=== PATIENT | female | born 1960 | race Caucasian/White ===

== ENCOUNTER → 2017-04-07 | Outpatient (CLI) | payer BC ==
--- NOTE | 2017-04-07 09:57 | REPMRS ---
Patient History The patient states she had a clinical breast exam in 05/09 Patient is postmenopausal. Family history of breast cancer in sister at age 45 and endometrial cancer in sister at age 73. Benign excisional biopsy of the left breast, 1997. Took hormonal contraceptives for 20 years. Digital Woman Screen Mammo: April 07, 2017 - Exam #: [id number] Bilateral CC and MLO view(s) were taken. Technologist: Jaclyn Kaur, Technologist Prior study comparison: April 03, 2016, left breast digital mammo diagnostic unilateral, performed at [facility]. April 01, 2016, digital woman screen mammo performed at [facility]. FINDINGS: There are scattered fibroglandular densities. There is a fairly symmetric fibroglandular pattern in both breasts. There has been no interval development of masses, areas of architectural distortion or clusters of microcalcifications typical of malignancy. The left breast cyst has increased in size. ASSESSMENT: BI-RADS/ACR category 2 mammogram. Benign finding(s). Recommendation Routine screening mammogram of both breasts in 1 year (for women over age 40). This patient's Lifetime Breast Cancer RIsk is estimated at 20.1%, therefore supplemental breast MRI screening is recommended. This mammogram was interpreted with the aid of an FDA-approved computer-aided dectection system. Electronically Signed By: Spencer Easley MD 04/07/17 0957
== END ==
LOC: M WHC 08:00
PROVIDERS: ATTEND Internal Medicine
DX: Z12.31 Encounter for screening mammogram for malignant neoplasm of breast (principal)

== ENCOUNTER → 2018-04-08 | Outpatient (CLI) | payer BC | LOC: M WHC 08:01 | DX: Z12.31 Encounter for screening mammogram for malignant neoplasm of breast (principal); N60.02 Solitary cyst of left breast; Z92.89 Personal history of other medical treatment; Z92.0 Personal history of contraception; Z80.3 Family history of malignant neoplasm of breast; Z80.49 Family history of malignant neoplasm of other genital organs | CPT/HCPCS: 77067 ==

== ENCOUNTER → 2018-05-28 | Outpatient (CLI) | payer BC ==
--- NOTE | 2018-05-28 12:52 | REP ---
THYROID SONOGRAPHY: HISTORY: The patient feels a lump in the right side of the neck. No comparison imaging. FINDINGS: Thyroid isthmus measures 0.5 cm in thickness. Right thyroid lobe dimensions are 3.6 x 1.5 x 1.0 cm. Left lobe measures 3.2 x 1.4 x 1.0 cm. Scanning in the area where the patient feels a lump shows no mass or abnormal cyst. There is a 6 mm hypoechoic solid nodule in the right lobe superiorly. There is a 3 mm cyst inferiorly in the right lobe. There is am 8 x 5 x 4 mm hypoechoic nodule in the left lobe. IMPRESSION: Multinodular thyroid. No evidence of mass or neck cyst.
== END ==
LOC: M WHC 07:52
PROVIDERS: ATTEND Obstetrics & Gynecology
DX: R22.1 Localized swelling, mass and lump, neck (principal)

== ENCOUNTER → 2019-04-12 | Outpatient (CLI) | payer BC ==
--- NOTE | 2019-04-12 10:02 | REP ---
BILATERAL SCREENING MAMMOGRAM WITH 3D TOMOSYNTHESIS: Family history of breast cancer in sister at age 45. [facility] lifetime risk of breast cancer is 19.2%. MLO and CC views of both breast performed with 3D tomosynthesis. There is moderate scattered fibroglandular tissue bilaterally. There is no change on the right. On the left, a nodule medially measures approximately 2.9 cm in maximum diameter and has increased in size, previously identified as a cyst. There are two adjacent 1 cm nodules which appear oval in shape and fairly well-circumscribed. I see no other evidence of mass or clustered microcalcifications. IMPRESSION: BIRADS 0: BI-RADS/ACR category 0 mammogram, Incomplete: Need additional imaging evaluation and/or prior mammograms for comparison. Well-circumscribed nodule in the medial aspect of the left breast measures 2.9 cm in maximum diameter and has increased in size since prior studies. This was previously identified as a cyst. There are two adjacent 1 cm nodular densities just superior to the dominant nodule. These are not definitely seen on the prior study. Recommend spot compression views and ultrasound to further evaluate. This mammogram was interpreted with the aid of an FDA-approved computer-aided detection system. A. Negative x-ray reports should not delay biopsy if a dominant or clinically suspicious mass is present. B. Four to eight percent of cancers are not identified by x-ray. C. Adenosis and dense breasts may obscure an underlying neoplasm. The patient states that she or he has not had a clinical breast exam in over a year. The patient letter being requested is M0.
== END ==
LOC: M WHC 07:03
PROVIDERS: ATTEND Internal Medicine
DX: Z12.31 Encounter for screening mammogram for malignant neoplasm of breast (principal); Z80.3 Family history of malignant neoplasm of breast; N63.20 Unspecified lump in the left breast, unspecified quadrant

== ENCOUNTER → 2019-04-20 | Outpatient (CLI) | payer BC ==
--- NOTE | 2019-04-20 12:45 | REP ---
DIAGNOSTIC MAMMOGRAM, LEFT BREAST WITH LEFT BREAST ULTRASOUND: Spot compression views, left breast performed in multiple projections and correlated with recent mammogram of 04/12/2019 and compared to other prior exams. There is confirmation of a well-circumscribed nodule in the medial left breast which has enlarged since prior studies. This measures about 2.8 cm in maximum diameter. Again, there appear to be two subcentimeter nodules adjacent to this mammographically. Real-time sonographic evaluation of left breast performed medially in the region of 9-o'clock position. There is a complex cyst corresponding to the dominant nodule in the medial left breast, measuring 3.1 x 1.8 x 2.5 cm. The lesion is predominantly cystic, but there is diffuse wall thickening with a peripheral hypoechoic area. A peripheral oval hypoechoic area may represent a mural nodule 1.8 cm x 0.7 cm. There are two adjacent hypoechoic nodules, which do not represent simple cysts, each measuring 8 mm in maximum diameter. IMPRESSION: BIRADS 4: BI-RADS/ACR category 4 mammogram. Suspicious Abnormality - biopsy should be considered. ACR 4 suspicious. Dominant, well-circumscribed nodule medial left breast corresponds to a complex cystic nodule by ultrasound with diffuse, somewhat irregular wall thickening and an oval hypoechoic area within the internal aspect, which may represent a mural nodule. Maximum diameter is 3.1 cm. Two adjacent 8 mm hypoechoic nodules are also seen. Recommend ultrasound-guided biopsy of these three nodules. ACR 4 suspicious. The patient letter being requested is M4. Electronically Signed by Spencer Easley MD 04/20/2019 12:49 P
== END ==
LOC: M RAD 09:51
PROVIDERS: ATTEND Internal Medicine
DX: R92.2 Inconclusive mammogram (principal)

== ENCOUNTER → 2019-05-11 | Outpatient (CLI) | payer BC ==
[~2019-05-11] MED LIST: ASPI81TA26 PO; CYAN500T8 PO; LIDOCAINE 1% MDV 20ML VIAL As Ordered ONE; LISI-542 PO; MULTTAB12 PO; OMEG10002 PO
[2019-05-11 15:00] VITALS: BP 175/91
--- NOTE | 2019-05-11 17:54 | REP ---
Ultrasound-guided left breast biopsy. The procedure was performed by YAHAIRA Zhao, under the direct supervision of Dr. Brown. The patient has a history of a complex cyst in the medial left breast measuring 3.1 x 1 point by 2.5 cm, as well as to a adjacent hypoechoic nodules, each measuring 8 mm on an ultrasound dated 04/20/2019. The risks and benefits of the procedure were explained to the patient and informed consent was obtained both verbally and written. Directly prior to the start of the procedure, a formal timeout was completed in the procedure room. The left breast nodules were localized using ultrasound guidance. The skin was prepped and draped in a sterile fashion. 9 ml 1% lidocaine 10 mg/ml was used as a local anesthetic. Using ultrasound guidance a 13-gauge suction assisted Mammotome needle was inserted and 6 core biopsy samples were obtained of the lateral 8 mm nodule. Using the same entry site under ultrasound guidance a 13-gauge suction assisted Mammotome needle was inserted and 6 core biopsy samples were obtained of the complex cystic mass. At this time a large hematoma had formed obstructing the visualization of the third nodule. A marker clip was placed in the large cystic mass, which was documented under ultrasound. Pressure was held for a approximately 30 minutes until no new hematoma formation was visualized under ultrasound. The patient tolerated the procedure well and after the appropriate monitored convalescence the patient was discharged from the department. Reviewed by YAHAIRA Hernandez 05/11/2019 04:32 P Electronically Signed by Lizandro Brown MD 05/11/2019 05:44 P
== END ==
LOC: M IRPRO 11:27
PROVIDERS: ATTEND Surgery
DX: D24.2 Benign neoplasm of left breast (principal)

== ENCOUNTER → 2019-09-30 | Outpatient (CLI) | payer BC ==
[~2019-09-30] MED LIST changes: -LIDOCAINE 1% MDV 20ML VIAL As Ordered ONE
--- NOTE | 2019-09-30 15:00 | REP ---
DIGITAL DIAGNOSTIC UNILATERAL LEFT BREAST MAMMOGRAPHY WITH CAD, AND FOCUSED LEFT BREAST SONOGRAPHY: HISTORY: Palpable lump of the left breast. The patient had ultrasound-guided needle biopsy of a left medial breast mass performed on May 11, 2019. 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 The biopsy procedure was complicated by hematoma formation. Now with golf ball size mass in the left medial breast. Comparison is made with mammography from April 20 and April 12, 2019 as well as April 08, 2018. March 06, 2015 and April 07, 2017 prior mammography is also reviewed. MAMMOGRAPHIC FINDINGS: Mammography demonstrates a sharply circumscribed 4.0 cm mass in the medial aspect of the left breast at approximately 9-o'clock position corresponding with the skin marker for the palpable lump. Eccentrically positioned within the mass is the previous needle biopsy marker clip. Also along the superior margin of the mass, there are a grouping of punctate microcalcifications. No other mammographic abnormality is seen. There is rounded relatively high attenuation mass is first seen mammographically in April 07, 2017 when it measured 1.6 cm. It regressed slightly to 1.3 cm on April 08, 2018 prior mammography. SONOGRAPHIC FINDINGS: At the approximate 10- o'clock position in the medial aspect of the left breast in the area of the palpable lump, there is a complex cystic and solid lesion measuring 4.2 x 4.1 x 2.8 cm in diameter. This is located approximately 3.5 cm from the nipple. The needle biopsy marker clip is visualized eccentrically within the lesion. There are multiple intracystic nodular areas and thickened septations. No intralesional Doppler flow could be detected. Sonography is otherwise unremarkable. IMPRESSION: BIRADS category 4 suspicious left breast imaging. Gradually enlarging 4 cm complex cystic and solid lesion medially located in the left breast corresponding to the previously biopsied ductal papilloma. There are adjacent punctate microcalcifications along the superior margin of the lesion. The lesion contains the previous needle biopsy marker clip. Recommend surgical excision. Consider radiography of the specimen. This mammogram was interpreted with the aid of an FDA-approved computer-aided detection system. The patient states she had a clinical breast exam in September 2019. The patient letter being requested is M4. This patient's estimated Tyrer-zick lifetime risk assessment for breast cancer is 18.7 %.
== END ==
LOC: M WHC 10:26
PROVIDERS: ATTEND Surgery
DX: N63.20 Unspecified lump in the left breast, unspecified quadrant (principal)
CPT/HCPCS: 76642; 77065; G0279

== ENCOUNTER → 2019-10-28 | Outpatient (CLI) | payer BC ==
[~2019-10-28] MED LIST changes: +PROHANCE 279.3MG/ML 15ML VIAL As Ordered ONE; +PROHANCE 279.3MG/ML 5ML VIAL As Ordered ONE
--- NOTE | 2019-10-28 14:56 | REP ---
MRI BILATERAL BREASTS WITH AND WITHOUT CONTRAST: Family history of breast cancer. COMPARISON: Mammogram and ultrasound, 09/30/2019. Ultrasound-guided biopsy, 05/11/2019 showed histologic diagnosis of ductal papilloma. Biopsy was complicated by a large hematoma. TECHNIQUE: Multiple sequences obtained in the axial, coronal, and sagittal planes prior to and following the intravenous administration of 16 mL ProHance. Images are evaluated in Walk-in software, including dynamic post-IV gadolinium axial T1 fat sat images, subtraction images, color overlay images, CAD images, and MIP reconstruction images. There is mild scattered fibroglandular tissue bilaterally. There is mild background parenchymal enhancement bilaterally. No axillary adenopathy is seen. No suspicious enhancing mass or morphologic abnormality seen in the right breast. In the left breast, there is a complex cystic structure containing hemorrhagic fluid compatible with the patient's history of postbiopsy hematoma. This measures approximately 3.3 cm in diameter. In the superior-posterior portion of this cystic hemorrhagic fluid, there is an enhancing spiculated mass which measures approximately 2.1 cm in diameter. This demonstrates washout-type enhancement. IMPRESSION: ACR 4 suspicious. In the inner right breast a hemorrhagic collection is noted post biopsy 05/2018. The hemorrhagic collection measures 3.3 cm in diameter. Within the superior-posterior aspect of this hemorrhagic collection in the upper inner left breast, there is an enhancing suspicious spiculated mass measuring 2.1 cm in diameter. As suggested on the mammogram report of 09/30/2019, surgical excision is recommended. There were microcalcifications seen by mammography at this location. Electronically Signed by Spencer Easley MD 10/31/2019 10:00 P
== END ==
LOC: M RAD 08:04
PROVIDERS: ATTEND Surgery
DX: N63.24 Unspecified lump in the left breast, lower inner quadrant (principal); Z80.3 Family history of malignant neoplasm of breast; N99.840 Postprocedural hematoma of a genitourinary system organ or structure following a genitourinary system procedure; Y83.8 Other surgical procedures as the cause of abnormal reaction of the patient, or of later complication, without mention of misadventure at the time of the procedure
CPT/HCPCS: A9576; C8908

== ENCOUNTER → 2019-11-14 | Outpatient (CLI) | payer BC ==
[~2019-11-14] MED LIST changes: +ANAS1TAB2 PO; +COSA500C3 PO; +FISH13602 PO; +GLUC500C37 PO; +HYDR-3713 PO; +LUTE20CA7 PO; -PROHANCE 279.3MG/ML 15ML VIAL As Ordered ONE; -PROHANCE 279.3MG/ML 5ML VIAL As Ordered ONE; +VITA-55 PO; +ZOFR4TAB16 PO
== END ==
LOC: M LABSMTC 12:07
PROVIDERS: ATTEND Anesthesiology
DX: Z13.818 Encounter for screening for other digestive system disorders (principal); Z11.59 Encounter for screening for other viral diseases
CPT/HCPCS: C9803; U0003

== ENCOUNTER 2019-11-17 11:44 | Day surgery (SDC) | payer BC ==
[~2019-11-17] VITALS: Ht 149.9 cm; Wt 80.7 kg
[~2019-11-17 11:44] MED LIST changes: -ANAS1TAB2 PO; -COSA500C3 PO; -FISH13602 PO; -HYDR-3713 PO; +LR 1,000 ML IV ONE; -VITA-55 PO; -ZOFR4TAB16 PO
[2019-11-17] MEDS ORDERED: ONDANSETRON 4MG/2ML VIAL As Ordered ONE (15:43)
[2019-11-17] MEDS ORDERED: dexameTHASONE 4 MG/ML 1ML VIAL (J1100 PER 1MG) As Ordered ONE (15:43)
[2019-11-17] MEDS ORDERED: fentaNYL 100 MCG/2 ML INJECTION (J3010) As Ordered ONE ×2 (15:43→16:03)
[2019-11-17] MEDS ORDERED: propofoL 200 MG/20 ML VIAL As Ordered ONE (15:43)
[2019-11-17] MEDS ORDERED: METOCLOPRAMIDE INJ 10MG/2ML VIAL (J2765 PER 1) As Ordered ONE (15:43)
[2019-11-17] MEDS ORDERED: MIDAZOLAM INJ 2MG/2ML VIAL (J2250 PER 1MG) As Ordered ONE (15:43)
[2019-11-17] MEDS ORDERED: BUPIVACAINE HCL 0.25% 30ML VIAL As Ordered ONE (15:43)
[2019-11-17] MEDS ORDERED: ACETAMINOPHEN 1000MG 100ML IV BTL (OFIRMEV) (J0131 PER 10MG) As Ordered ONE (15:43)
[2019-11-17] MEDS ORDERED: KETOROLAC 60MG 2ML VIAL As Ordered ONE (15:43)
[2019-11-17] MEDS ORDERED: LIDOCAINE 2% 100MG/5ML SDV (FOR ANES.) As Ordered ONE (15:43)
[2019-11-17] MEDS ORDERED: HYDR-3713 PO (18:04)
[2019-11-17] MEDS ORDERED: NORCO, ANEXSIA 5/325MG TABLET (HYDROcodone/ACETAMINOPHEN) PO PRN (18:15)
[2019-11-17] MEDS ORDERED: oxyCODONE 5MG TAB PO PRN (18:15)
[2019-11-17] MEDS ORDERED: ONDANSETRON 4MG/2ML VIAL IV PRN (18:15)
[2019-11-17] MEDS ORDERED: fentaNYL 100 MCG/2 ML INJECTION (J3010) IV PRN (18:15)
[2019-11-17] MEDS ORDERED: LR 1,000 ML IV SCH (18:15)
[2019-11-17] MEDS ORDERED: ACETAMINOPHEN TAB 650MG DOSE (2X325MG) PO PRN (18:15)
[2019-11-17] MEDS ORDERED: HYDROMORPHONE HCL 0.5 MG/ 0.5 ML SYRINGE (J1170 PER 1) IV PRN (18:15)
[2019-11-17 19:30] VITALS: BP 133/83
--- NOTE | 2019-11-18 14:54 | REP ---
SPECIMEN RADIOGRAPHS: Multiple specimen radiographs are performed following lumpectomy. Multiple tiny pleomorphic clustered microcalcifications are seen, as identified on the recent mammogram of 09/30/2019 along the margin of the round mass containing a metallic clip. The previously identified coiled clip that was seen within the mass in the left breast is not seen in any of the specimens. Electronically Signed by Spencer Easley MD 11/18/2019 03:21 P
--- NOTE | 2019-11-23 11:29 | RO ---
DATE OF PROCEDURE: 11/17/2019 PREOPERATIVE DIAGNOSIS: Left breast cystic mass. POSTOPERATIVE DIAGNOSIS: Left breast cystic mass with small adjacent soft tissue nodule, and microcalcifications. PROCEDURE PERFORMED: Excision of mass with excisional biopsy of adjacent small soft tissue nodule, and excision of the additional marginal tissue. SURGEON: Dr. Parrish PILOT PLANT OPERATOR: ANESTHESIA: General. INDICATIONS FOR THE PROCEDURE: The patient is a 59-year-old woman who in late 2018 was found on mammogram to have enlargement of a previously noted cystic lesion. She also had two small adjacent solid-appearing nodules on ultrasound. These were in the medial aspect of the left breast. She underwent an ultrasound-guided needle biopsy of one of the smaller lesions and then the cystic area. The small lesion biopsy suggested an intraductal papilloma. She developed a very large hematoma in the breast during the biopsy and further samples were not obtained. She was given approximately 6 months for the hematoma to resolve and followup imaging confirmed a persistent cystic area with some solid-appearing components. Some of this may represent a hematoma with some solid clot components. However, she also was noted to have a collection of small calcifications at the posterior superior aspect of the cystic area. She is now for excision of the mass. OPERATIVE PROCEDURE: The patient was brought to the operating room and placed on the table in a supine position. She was placed under general anesthesia using laryngeal mask airway (LMA). The patient's left breast was prepped and draped in a sterile fashion. By palpation the cystic portion of the mass seemed to have diminished in size slightly but persisted and was perhaps 3-4 cm in diameter. This was at about the 9:30 position in the medial aspect of the breast. A transverse elliptical incision was outlined with the skin marker overlying the mass. The skin was incised with a scalpel taking an ellipse approximately 3.5 to 4 cm in length by a centimeter or so in width. Dissection then was continued guided by palpation using a needle tip cautery. At the medial aspect of the mass, the cyst wall was identified. In the course of dissection, the cyst was perforated in this area with release of a small amount of lightly brownish colored clear fluid. The exposed interior aspect of the cyst appeared to contain some old clot components. The removed the mass measured approximately 6 cm in medial to lateral distance by 5 cm superior to inferior and 4 cm in thickness. This was examined with the [place] specimen oral therapist. At the medial aspect of the mass at the superior aspect a cluster of calcifications was identified. Inspection of the specimen confirmed that this was in a small fragment of tissue attached in this area outside the cyst. I excised this small fragment of tissue, which was about 1.5 cm by 6-8 mm by again 6-8 mm. This was set adjacent to the larger mass for an additional image and this confirmed that the calcifications were located in the specimen of tissue. The mass was marked with the [employer] MarginMarker system. The wound cavity was inspected and the area where the calcifications had been located relative to the wound cavity was identified. There was still a small amount of firmer tissue identified in this wall of the cavity, which was on the superior medial aspect. This portion of tissue was excised and by palpation there appeared to be a small soft tissue nodule no bigger than 4-5 mm within this. This additional small specimen was subjected to imaging with the [place] system and this also appeared to contain some calcifications. The three specimens removed at this point were labeled as #1 the breast mass, which was the larger cystic area with surrounding tissue, #2 was the small fragment of tissue containing calcifications, #3 was labeled adjacent nodule and was the additional small area of tissue that had been excised and contained also some additional microcalcifications. At this point, I elected to excise the entire superior margin of the biopsy cavity. This was in case the nodule or the calcifications represented an area of cancer we would effectively have performed a complete excision adequate for cancer management at that point. Therefore, the entire superior aspect of the wound cavity was excised. This produced a piece of tissue somewhat irregular that was 8 cm in length from medial to lateral, 3 cm in width anterior to posterior, and approximately 2 cm in thickness at its thickest part. The superior and medial and lateral borders of this were marked with the MarginMarker system. This was sent as superior margin tissue. The wound was then irrigated and inspected. Hemostasis was ensured with the cautery. Some limited tissue rearrangement took place by dividing the more superficial fibrofatty layer from the underlying breast tissue using the cautery. This was performed both superiorly and inferiorly to allow the tissue to more readily fill the space of her biopsy. The deeper tissues were approximated with interrupted sutures of #2-0 chromic. The more superficial tissues were closed with chromic. The skin edges were approximated with some buried #3-0 Vicryl and the incision was closed with a running subcuticular #4-0 Vicryl and Steri-Strips. Some 0.25% Marcaine was infiltrated around the wound prior to closure. The patient tolerated the procedure well without apparent complication. She was awakened in the operating room, extubated and moved to the recovery room in stable condition.
== END 2019-11-17 19:30 | disposition home or self-care (01) ==
LOC: M SDC 11:44
PROVIDERS: ATTEND Surgery
DX: C50.912 Malignant neoplasm of unspecified site of left female breast (principal); I10 Essential (primary) hypertension; K44.9 Diaphragmatic hernia without obstruction or gangrene; Z79.899 Other long term (current) drug therapy
CPT/HCPCS: 19120; 88305; 88307; J0131; J1100; J1885; J2250; J2405; J2765; J3010

== ENCOUNTER → 2019-11-18 | Outpatient (REF) | payer BC ==
[~2019-11-18] MED LIST changes: +HYDR-3713 PO; -LR 1,000 ML IV ONE; +ZOFR4TAB16 PO
== END ==
LOC: M LAB REF 16:43
PROVIDERS: ATTEND Internal Medicine
DX: D51.9 Vitamin B12 deficiency anemia, unspecified (principal)

== ENCOUNTER 2019-11-19 19:30 | Emergency (ER) | payer BC ==
[~2019-11-19] VITALS: Ht 152.4 cm; Wt 82.5 kg
[~2019-11-19 19:30] MED LIST changes: -ZOFR4TAB16 PO
[2019-11-19] MEDS ORDERED: ONDANSETRON 4MG/2ML VIAL IV ONE (20:00)
[2019-11-19] MEDS ORDERED: MORPHINE 4 MG/ML 1ML VIAL/SYRINGE (J2270) IV PRN (20:00)
[2019-11-19] MEDS ORDERED: PANTOPRAZOLE 40MG VIAL (C9113 PER 1) IV ONE (20:00)
[2019-11-19 20:43] LABS: BASO % 0.5 % (0.0-1.0); EOS # 0.1 10^3/uL (0.0-0.5); EOS % 1.2 % (0.0-3.0); HEMATOCRIT 40.2 % (36.0-47.0); HEMOGLOBIN 13.9 g/dl (12.0-15.5); LYMPH # 2.2 10^3/uL (1.5-5.0); MEAN CORPUSCULAR HEMOGLOBIN 31.6 pg (27.0-33.0); MEAN CORPUSCULAR HGB CONC 34.6 g/dl (32.0-36.5); MEAN CORPUSCULAR VOLUME 91.4 fl (80.0-96.0); MONO # 0.3 10^3/uL (0.0-0.8); MONO % 3.5 % (0.0-5.0); NEUTROPHILS # 5.9 10^3/uL (1.5-8.5); NEUTROPHILS % 68.6 % (36.0-66.0); PLATELET COUNT, AUTOMATED 324 10^3/uL (150-450); WHITE BLOOD COUNT 8.6 10^3/uL (4.0-10.0)
[2019-11-19] MEDS ORDERED: ISOVUE-370 76% 100ML VIAL As Ordered ONE (20:45)
[2019-11-19 20:51] LABS: ALBUMIN 4.1 GM/DL (3.2-5.2); ALT/SGPT 25 U/L (12-78); BILIRUBIN,DIRECT < 0.1 MG/DL (0.0-0.2); BILIRUBIN,TOTAL 0.3 MG/DL (0.2-1.0); BLOOD UREA NITROGEN 21 MG/DL (7-18); CALCIUM LEVEL 9.1 MG/DL (8.5-10.1); CARBON DIOXIDE LEVEL 28 MEQ/L (21-32); CHLORIDE LEVEL 104 MEQ/L (98-107); CREATININE FOR GFR 0.73 MG/DL (0.55-1.30); GLOMERULAR FILTRATION RATE > 60.0 (>51); GLUCOSE, FASTING 102 MG/DL (70-100); LIPASE 119 U/L (73-393); POTASSIUM SERUM 3.6 MEQ/L (3.5-5.1); SODIUM LEVEL 138 MEQ/L (136-145); TOTAL PROTEIN 7.1 GM/DL (6.4-8.2)
[2019-11-19 20:57] LABS: INR 0.99; PROTHROMBIN TIME 12.8 SECONDS (11.8-14.0)
[2019-11-19 21:07] LABS: BILIRUBIN, URINE MANUAL NEGATIVE (NEGATIVE); GLUCOSE, URINE (UA) MANUAL NEGATIVE (NEGATIVE); KETONE, URINE MANUAL NEGATIVE (NEGATIVE); UROBILINOGEN, URINE MANUAL NORMAL (NORMAL)
--- NOTE | 2019-11-19 21:14 | REPVR ---
PROCEDURE INFORMATION: Exam: CT Abdomen And Pelvis With Contrast Exam date and time: 11/19/2019 8:58 PM Age: 59 years old Clinical indication: Abdominal pain; Generalized; Additional info: Abd pain aaa TECHNIQUE: Imaging protocol: Computed tomography of the abdomen and pelvis with intravenous contrast. Radiation optimization: All CT scans at this facility use at least one of these dose optimization techniques: automated exposure control; mA and/or kV adjustment per patient size (includes targeted exams where dose is matched to clinical indication); or iterative reconstruction. Contrast material: ISVOUE 370; Contrast volume: 100 ml; Contrast route: INTRAVENOUS (IV); COMPARISON: CT ABD PELVIS W/O CONTRAST 10/08/2013 9:44 PM FINDINGS: Lungs: No suspicious mass or airspace process in the visualized lung bases. Liver: Inferior right lobe hepatic cyst is stable since 2013 and benign. Prior large left lobe hepatic cyst is no longer present and a small benign left lobe cyst is present adjacent to the falciform ligament. Gallbladder and bile ducts: Gallstones are present in the gallbladder lumen. No adjacent fluid or duct dilatation. Pancreas: Pancreas appears normal. No focal mass or peripancreatic inflammation. Spleen: Spleen appears homogeneous without focal mass. Adrenals: Adrenal glands are normal in appearance. Kidneys and ureters: Kidneys demonstrate no stone or obstruction. Left renal lower pole 15 mm Bosniak type 1 simple fluid density cyst is present, which requires no follow-up. Stomach and bowel: Medial left diaphragmatic hernia contains the majority of stomach with no obstruction despite rotation of the stomach within the hernia. Terminal ileum has normal appearance. No evidence of acute diverticulitis. Appendix: Normal caliber appendix is identified, with no adjacent inflammation. Intraperitoneal space: . No free air. Vasculature: No aortic aneurysm. Lymph nodes: No enlarged lymph nodes. Bladder: Urinary bladder appears normal. Reproductive: No enlargement of the uterus or ovaries. Bones/joints: Bony structures are normal except for lumbar spine degenerative disc changes. Soft tissues: Fat containing umbilical hernia is present. Small volume of air and fluid in the medial left breast suggesting a recent intervention. IMPRESSION: 1. Cholelithiasis without biliary obstruction or acute cholecystitis. 2. No evidence of abdominal aortic aneurysm or aortic dissection. 3. Medial left diaphragmatic hernia measuring 7 cm, containing the majority of the stomach, with rotational component of the stomach within the hernia without obstruction. Electronically signed by: Ever Conway On 11/19/2019 21:13:36 PM
[2019-11-19 21:15] VITALS: BP 150/77
[2019-11-19] MEDS ORDERED: NITROGLYCERIN 0.4 MG SUBL TABLET SL PRN (21:15)
[2019-11-19 21:17] LABS: RBC, URINE 0-1 /hpf (0-3); SQUAMOUS EPITHELIAL CELL URINE SMALL AMOUNT /hpf (SMALL AMT)
[2019-11-19 21:18] LABS: BACTERIA, URINE SMALL AMOUNT; CK-MB VALUE MASS 4.8 NG/ML (<3.6); CPK CREATINE PHOSPHOKINASE 186 U/L (26-192); HYALINE CAST, URINE NONE SEEN /lpf (0-1); MB/CK RELATIVE INDEX 2.58 (< OR =4)
[2019-11-19 21:19] LABS: AMYLASE 60 U/L (25-115); TROPONIN I < 0.02 NG/ML (< 0.10)
[2019-11-19] MEDS ORDERED: ZOFR4TAB16 PO (21:42)
[2019-11-19 21:53] VITALS: BP 124/74
--- NOTE | 2019-11-21 07:54 | ECGEPIP ---
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
== END 2019-11-19 21:59 | disposition home or self-care (01) ==
LOC: M ED 19:30
DX: K44.9 Diaphragmatic hernia without obstruction or gangrene (principal); I10 Essential (primary) hypertension; Z79.899 Other long term (current) drug therapy
CPT/HCPCS: 36415; 74177; 80047; 80048; 80076; 81000; 82150; 82550; 82553; 83690; 84484; 85025; 85610; 87086; 93005; 93041; 96374; 96375; 99284; C9113; J2270; J2405; Q9967

== ENCOUNTER → 2019-11-29 | Outpatient (CLI) | payer BC ==
[~2019-11-29] MED LIST changes: +ANAS1TAB2 PO; +COSA500C3 PO; +FISH13602 PO; +VITA-55 PO; +ZOFR4TAB16 PO
== END ==
LOC: M LABSMTC 11:16
PROVIDERS: ATTEND Anesthesiology
DX: Z01.818 Encounter for other preprocedural examination (principal); Z11.59 Encounter for screening for other viral diseases
CPT/HCPCS: C9803; U0003

== ENCOUNTER 2019-12-02 07:59 | Day surgery (SDC) | payer BC ==
[~2019-12-02] VITALS: Ht 152.4 cm; Wt 79.8 kg
[~2019-12-02 07:59] MED LIST changes: -ANAS1TAB2 PO; -COSA500C3 PO; -FISH13602 PO; +LIDOCAINE 1% MDV 20ML VIAL SQ PRN; +LIDOCAINE 5% (LIDODERM) PATCH TD ONE; +LR 1,000 ML IV ONE; -VITA-55 PO
[2019-12-02] MEDS ORDERED: fentaNYL 100 MCG/2 ML INJECTION (J3010) As Ordered ONE (11:27)
[2019-12-02] MEDS ORDERED: dexameTHASONE 4 MG/ML 1ML VIAL (J1100 PER 1MG) As Ordered ONE (11:27)
[2019-12-02] MEDS ORDERED: MIDAZOLAM INJ 2MG/2ML VIAL (J2250 PER 1MG) As Ordered ONE (11:27)
[2019-12-02] MEDS ORDERED: ONDANSETRON 4MG/2ML VIAL As Ordered ONE (11:27)
[2019-12-02] MEDS ORDERED: LIDOCAINE 2% 100MG/5ML SDV (FOR ANES.) As Ordered ONE (11:27)
[2019-12-02] MEDS ORDERED: ROCURONIUM BROMIDE 50 MG/5 ML VIAL As Ordered ONE (11:27)
[2019-12-02] MEDS ORDERED: propofoL 200 MG/20 ML VIAL As Ordered ONE ×2 (11:27→15:11)
[2019-12-02] MEDS ORDERED: METHYLENE BLUE 0.5% (5MG/ML) 10 ML AMP (PROVAYBLUE) As Ordered ONE (12:32)
[2019-12-02] MEDS ORDERED: METOCLOPRAMIDE INJ 10MG/2ML VIAL (J2765 PER 1) As Ordered ONE (13:12)
[2019-12-02] MEDS ORDERED: HYDROmorphone HCL 2 MG/ML 1ML VIAL (J1170) As Ordered ONE (13:12)
[2019-12-02] MEDS ORDERED: KETOROLAC 60MG 2ML VIAL As Ordered ONE (13:12)
[2019-12-02] MEDS ORDERED: ACETAMINOPHEN 1000MG 100ML IV BTL (OFIRMEV) (J0131 PER 10MG) As Ordered ONE (13:16)
[2019-12-02] MEDS ORDERED: KETAMINE HCL 200 MG/20 ML VIAL As Ordered ONE (13:22)
[2019-12-02] MEDS ORDERED: SUGAMMADEX SODIUM 500 MG/5 ML VIAL (BRIDION) As Ordered ONE (13:23)
[2019-12-02] MEDS ORDERED: PHENYLephrine HCL 500 MCG/5 ML (100MCG/ML) SYRINGE (J2370) As Ordered ONE (13:34)
[2019-12-02] MEDS ORDERED: ePHEDrine SULFATE 25 MG/5 ML(5MG/ML) SYRINGE As Ordered ONE (13:34)
[2019-12-02] MEDS: PERCOCET 5MG/325MG TAB PO PRN ×2 (16:08→16:42)
[2019-12-02] MEDS ORDERED: PERCOCET 5MG/325MG TAB As Ordered ONE (16:08)
[2019-12-02] MEDS ORDERED: fentaNYL 100 MCG/2 ML INJECTION (J3010) IV PRN (16:30)
[2019-12-02] MEDS ORDERED: METOCLOPRAMIDE INJ 10MG/2ML VIAL (J2765 PER 1) IV PRN (16:30)
[2019-12-02] MEDS ORDERED: LR 1,000 ML IV SCH (16:30)
[2019-12-02] MEDS ORDERED: ONDANSETRON 4MG/2ML VIAL IV PRN (16:30)
[2019-12-02 17:25] VITALS: BP 135/78
--- NOTE | 2019-12-04 23:47 | REP ---
Left Breast Lymphoscintigraphy The procedure was performed by YAHAIRA Zhao, under the direct supervision of Dr. Easley. The risks and benefits of the procedure were explained to the patient and informed consent was obtained both verbally and written. Directly prior to the start of the procedure, a formal timeout was completed in the procedure room. Using topical anesthetic and sterile technique 1.018 mCi of technetium 99m filtered sulfur colloid was injected subdermally in eight fractionated periareolar injections. Images obtained 1 hour after injection demonstrate a dominant left axillary focus with two or three smaller adjacent axillary foci. Impression: 1. There is a dominant left axillary focus with two or three smaller adjacent axillary foci. Reviewed by YAHAIRA Hernandez 12/02/2019 11:29 A Electronically Signed by Spencer Easley MD 12/04/2019 11:38 P
== END 2019-12-02 17:51 | disposition home or self-care (01) ==
LOC: M SDC 07:59
PROVIDERS: ATTEND Surgery
DX: C50.912 Malignant neoplasm of unspecified site of left female breast (principal); I10 Essential (primary) hypertension; K44.9 Diaphragmatic hernia without obstruction or gangrene; M41.9 Scoliosis, unspecified; E66.9 Obesity, unspecified; Z79.899 Other long term (current) drug therapy
CPT/HCPCS: 19301; 38525; 78195; 88305; 88307; A9541; J0131; J1100; J1170; J1885; J2250; J2370; J2405; J2765; J3010; Q9968

== ENCOUNTER → 2020-01-20 | Outpatient (CLI) | payer BC ==
[~2020-01-20] MED LIST changes: +ANAS1TAB2 PO; +COSA500C3 PO; +FISH13602 PO; +GASTROGRAFIN SOLUTION 30ML (Q9963) As Ordered ONE; +ISOVUE-370 76% 100ML VIAL As Ordered ONE; -LIDOCAINE 1% MDV 20ML VIAL SQ PRN; -LIDOCAINE 5% (LIDODERM) PATCH TD ONE; -LR 1,000 ML IV ONE; +VITA-55 PO
--- NOTE | 2020-02-20 08:36 | REP ---
WHOLE BODY BONE SCAN HISTORY: Breast carcinoma. TECHNIQUE: 21.8 mCi of Technetium-99m MDP is injected and standard whole body bone can imaging is acquired. SONOGRAPHIC FINDINGS: There is moderate S-shaped thoracolumbar scoliotic curve and mild degenerative uptake pattern seen along the thoracic spine. Otherwise, distribution of skeletal tracer is normal with uptake in bilateral kidneys and in the urinary bladder. There is no evidence to suggest skeletal metastatic disease. IMPRESSION: No evidence to suggest bony metastasis. Scoliosis. Mild degenerative change. MTDD
--- NOTE | 2020-02-20 08:37 | REP ---
CT CHEST WITH INTRAVENOUS (IV) CONTRAST HISTORY: Breast carcinoma. COMPARISON: No comparison chest CT. CT CONTRAST DOSE: 100 mL of intravenous Isovue-370. CT FINDINGS: Digital preliminary subgrade roller operator radiograph demonstrate a moderate S-shaped thoracolumbar scoliotic curve. Postoperative fibrosis is noted in the medial left breast skin and underlying medial left breast tissue in a linear pattern. There are surgical clips in the left axillary soft tissues. No axillary lymphadenopathy is seen on either side. No supraclavicular adenopathy or internal mammary adenopathy is seen. There is no evidence of pleural effusion or pericardial effusion. There is a hiatal hernia again noted at the diaphragmatic hiatus. Two faintly opaque gallstones are visible in the gallbladder lumen. Each of these measures approximately 12 mm in diameter. Normal adrenal glands are noted. No mediastinal mass or adenopathy is observed. Three noncalcified pulmonary nodules are identified. There is a 6-mm noncalcified pulmonary nodule in the right middle lobe projecting on Page 45 of 83 in Series 204 of todays study. There is a 4-mm nodule in the left upper lobe projecting on Page 32 of 83 of todays study, and a pleural-based 4-mm nodule is seen in the lingula on Page 50 of 83. The largest of these, the 6-mm right middle lobe nodule, is visible in retrospect at the top of the scan field on the CT study from 10/08/2013 and appears to be unchanged. This and the lingula nodule are unchanged from 11/19/2019. No bony destructive lesion is seen. IMPRESSION: Posttreatment changes are noted in the left breast. Hiatal hernia. There are three noncalcified small subcentimeter pulmonary nodules, two of which are present and unchanged from the 11/19/2019 study. The right middle lobe nodule appears to be unchanged from 10/08/2013. Cholelithiasis is also noted. Otherwise, no acute disease. MTDD
== END ==
LOC: M RAD 07:51
PROVIDERS: ATTEND Internal Medicine Hematology & Oncology
DX: C50.911 Malignant neoplasm of unspecified site of right female breast (principal)

== ENCOUNTER → 2020-01-26 | Outpatient (CLI) | payer BC ==
[~2020-01-26] VITALS: Ht 147.3 cm; Wt 80.9 kg
[~2020-01-26] MED LIST changes: -GASTROGRAFIN SOLUTION 30ML (Q9963) As Ordered ONE; -ISOVUE-370 76% 100ML VIAL As Ordered ONE
--- NOTE | 2020-01-26 12:50 | RADONC.CN ---
Radiation Oncology Hx/Consult Radiation Oncology Consult Date of Service: Jan 26, [address] Ibrahim is a 59 year old female with a history of left breast cancer pT2N0(sn)M0 ER/DE+ Her2- Grade 2 of the upper inner quadrant. She is s/p Lumpectomy on 11/17/19 followed by margin directed re-excision and SLNB on 12/02/[address] Parrish. She has undergone staging scans and an oncotype is pending. She is seen for consideration of adjuvant RT. Diagnosis/Treatment History Oncologic History Presented in 2016 with a cystic mass in the left breast, this was followed and biopsied in April 2019 c/b hematoma. She was noted to have a persistent lesion in follow up in September 2018 and subsequent mammogram and US demonstrated a 4 cm spiculated lesion. EOD MRI was performed which revealed no overt regional disease. She had a lumpectomy on 11/17/19 which showed IDC, HR+ Her2- Grade 2. She underwent margin-directed re-excision and SLNB on 12/02/[address] Parrish, final pathology revealed pT2N0(sn)M0. An oncotype has been ordered and is pe nding. She had a bone scan and CT chest abdomen and pelvis on 01/20/20 without evidence of metastases (my read, formal read pending). Breast History: Post-menopausal No OCP use No HRT No hysterectomy/BSO Interval History Reports she feels well overall. No swelling in the left. No pain in the left breast. Has some numbness in the axilla, not bothersome. Energy level good, appetite and weight stable. [place] [employer]. Has an upcoming out of town wedding in February (). Past Medical History: HTN Past Surgical History: Left lumpectomy Left SLNB Tonsillectomy Family History: Sister #1 breast cancer Sister #2 endometrial cancer Father/mother no malignancy Social History: Never-smoker 3-5 Drinke per week Allergies / Meds Allergies: Coded Allergies: No Known Allergies (Unverified , 11/10/19) Home Meds Reported Medications Hamilton-3S/Dha/Epa/Fish Oil (Fish Oil Hamilton-3 Softgel) 1 Each Capsule., 1 CAP PO DAILY 01/26/20 Vitamin E (Dl,Tocopheryl Acet) (Vitamin E) 400 Unit Capsule, 400 UNIT PO DAILY for 30 Days, #30 CAP 01/26/20 Glucosam/Chondroit/C/Manganese (Cosamin Ds Capsule) 1 Each Capsule, 1 CAP PO DAILY, CAP 01/26/20 Lutein (Lutein) 20 Mg Capsule, 20 MG PO DAILY, CAP 11/10/19 Multivitamin (Multiple Vitamins) 1 Each Tablet, 1 TAB PO DAILY, TAB 05/11/19 Lisinopril (Lisinopril) 5 Mg Tablet, 5 MG PO DAILY, TAB 05/11/19 Review of Systems General: Reports: Normal Appetite Constitutional: Denies: Chills, Fever, Night Sweats Eyes: Denies: Pain, Vision change HEENT: Denies: Head Aches, Dysphagia, Sore Throat Skin: Denies: Rash, Lesions, Bruising Pulmonary: Denies: Dyspnea, Cough Cardiovascular: Denies: Chest Pain, Palpitations, Edema Breast: Denies: New Breast Lumps / Masses, Breast Skin Changes, Breast Pain or Tenderness Gastrointestinal: Denies: Nausea, Vomiting, Abdominal Pain, Diarrhea Genitourinary: Denies: Dysuria, Frequency, Incontinence Hematologic: Denies: Bruising, Petecchia, Enlarged Lymph Nodes Musculoskeletal: Denies: Neck pain, Back pain Neurological: Denies: Weakness, Numbness, Incoordination Psych: Reports: Mood Normal; Denies: Memory Issues, Thoughts of Self Harm Vital Signs Ht 58" Wt 178lb BMI 37.2 T 97.7 P 77 RR 16 BP 146/90 O2 97% Pain 0 General Exam: Positive: Alert, Cooperative, No Acute Distress Eye Exam: Positive: PERRLA, EOMI ENT EXAM: Positive: Mucous membr. moist/pink, Pharynx Normal Neck Exam: Negative: Thyromegaly, Lymphadenopathy Chest Exam: Positive: Normal air movement; Negative: Rales, Rhonchi, Wheezing Heart Exam: Positive: Rate Normal, Regular Rhythm Breast Exam: Positive: Symmetric Bilaterally, Other Breast Findings (Well healed lumpectomy and axillary incisions. No palpable masses or seroma. A cup); Negative: Lumps or Masses, Nipple Retraction, Nipple Discharge, Skin Changes Abdomen Exam: Positive: Soft; Negative: Tenderness, Mass Extremity Exam: Negative: Edema, Tenderness Skin Exam: Positive: Nl turgor and temperature; Negative: Rash Neuro Exam: Positive: Normal Gait, Normal Speech, Cranial Nerves 3-12 NL Psych Exam: Positive: Mental status NL, Mood NL, Memory Intact Diagnostic and Laboratory Diagnostic Review Radiologic images, relevant labs and pathology reports were personally reviewed and discussed with Ms. Ibrahim. Assessment and Plan Impression Ms. Ibrahim is a 59 year old female with a history of left breast cancer pT2N0(sn)M0 ER/DE+ Her2- Grade 2 of the upper inner quadrant. She is s/p Lumpectomy on 11/17/19 followed by margin directed re-excision and SLNB on 12/02/[address] Parrish. She has undergone staging scans and an oncotype is pending. She is seen for consideration of adjuvant RT. 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 Ibrahim regarding the diagnosis at hand and available therapeutic options. She has an early stage cancer. Oncotype is pending. If the oncotype score is low, then we would proceed with adjuvant RT in the coming weeks. I think that although she meets cautionary APBI criteria (T2), that she would benefit most from standard WBI plus a tumor bed boost. The APBI field would be very similar to a whole breast field given the smaller size of her breast. I recommend 40 Gy in 15 fractions to the left whole breast followed by a 10 Gy in 5 fraction tumor bed boost (possibly electron as the tumor bed on her staging CT chest seems superficial). She agreed to this. I did discuss a more rapid regimen of 26 Gy in 5 fractions to the whole breast followed by a boost as studied on the recent FAST FORWARD trial, the caveat with this is the data are not as mature as the 20 fraction regimen. I reviewed possible side effects including fatigue, skin reaction and fibrosis. Her risk of lymphedema will be low. We discussed the logistics of receiving radiation therapy in detail including the need for a 1-time planning session. We will await her oncotype results and proceed accordingly. After discussing the risks, benefits and alternatives to radiation therapy, Ms. Ibrahim was amenable to pursuing radiotherapy. All questions were answered to the patient's satisfaction. We instructed the patient that if there were any questions,concerns or changes in clinical status in the interim to contact us. Recommendations Follow up oncotype Whole breast RT 40 Gy in 15 fractions followed by 10 Gy in 5 fraction tumor bed boost Simulation pending oncotype JAY MARTINES MD Jan 26, 2020 12:50
== END ==
LOC: M ONCR 10:03
PROVIDERS: ATTEND General Practice
DX: C50.211 Malignant neoplasm of upper-inner quadrant of right female breast (principal)

== ENCOUNTER → 2020-02-22 | Outpatient (RCR) | payer BC | LOC: M ONCR 02-07 10:31 | PROVIDERS: ATTEND General Practice | DX: C50.212 Malignant neoplasm of upper-inner quadrant of left female breast (principal) ==

== ENCOUNTER 2020-03-12 08:00 | Outpatient (RCR) | payer BC | END 2020-03-24 | LOC: M ONCR 08:00 | PROVIDERS: ATTEND General Practice | DX: C50.212 Malignant neoplasm of upper-inner quadrant of left female breast (principal) ==

== ENCOUNTER → 2020-06-27 | Outpatient (CLI) | payer BC ==
[~2020-06-27] MED LIST changes: +CYAN500T14 PO; -CYAN500T8 PO; -LISI-542 PO; +LISI-898 PO
--- NOTE | 2020-06-27 11:44 | REP ---
INDICATION: Z85.3 PERSON HX OF MALIGNANT NEOPLASM OF BREAST. COMPARISON: Comparison CT study abdomen pelvis 20 January 2020.. TECHNIQUE: Transabdominal and transvaginal scanning were performed. FINDINGS: Uterine dimensions are normal at 5.8 x 2.8 x 3.7 cm. Endometrial echo is uterus retroverted and somewhat retroflexed. There is a trace of endometrial fluid. No focal uterine mass is seen. Cm thick and centrally placed. No free fluid is seen in the cul-de-sac. Visualized bladder amin are smooth. The right ovary has dimensions of 1.3 x 1.1 x 0.8 cm. Doppler flow is visible in the right ovary. The left ovary dimensions are normal as well at 1.8 x 0.6 x 0.7 cm. Doppler flow is visible in the left ovary. IMPRESSION: Mild endometrial fluid visible. Otherwise negative pelvic sonography.. Retroverted uterus. <Electronically signed by Michael Brown > 06/27/20 3220
== END ==
LOC: M WHC 06:24
PROVIDERS: ATTEND Obstetrics & Gynecology
DX: Z85.3 Personal history of malignant neoplasm of breast (principal)

== ENCOUNTER 2020-07-11 16:57 | Emergency (ER) | payer BC ==
[~2020-07-11] VITALS: Ht 149.9 cm; Wt 84.2 kg
--- OUTSIDE RECORDS SUMMARY | 2020-07-11 17:05 | CCD | Continuity of Care Document ---
Author Author Ave MARTINEZ DO Organization Unknown Address [address] [facility] [address] [place] [address] Phone [phone] Care Team Providers Care Lokie Driver Name Role Phone Marti Martinez DO AUTM Unavailable Problems Active Problems Provider Date Chronic rhinitis Annita Singh FNP Onset: 07/25/2011 Elevated blood-pressure reading without diagnosis of h ypertension Annita Singh FNP Onset: 07/25/2011 Low back pain Annita Singh FNP Onset: 07/25/2011 Migraine Annita Singh FNP Onset: 07/25/2011 Essential hypertension Annita SinghCELL ROOM SUPERVISOR Onset: 07/25/2011 Amenorrhea Annita Singh FNP Onset: 07/25/2011 Dysplasia of cervix Annita Singh FNP Onset: 07/25/2011 Gastroesophageal reflux disease Annita SinghCELL ROOM SUPERVISOR Onset: 0 07/25/2011 Gallstone Annita SinghCELL ROOM SUPERVISOR Onset: 07/25/2011 Social History Type Date Description Comments Sex Unknown ETOH Use Consumes 5 glasses of wine per w tatitlek Tobacco Use Start: Unknown Patient has never smoked Allergies, Adverse Reactions, Alerts Description No Known Drug Allergies Medications Active Medications SIG Qnty Indications Ordering Provide r Date Melatonin 10mg Tablets 1 at bedtime by mouth Marti Martinez DO 06/01/2017 Lutein-Zeaxanthin 20-0.8mg Capsule s 1 by mouth every day Marti Martinez DO 06/01/2017 Fish Oil [place]-3 1200mg/360mg Caps ules 1 by mouth daily Marti Martinez DO 06/01/2017 Glucosamine Chondroitin Triple Strength Tablets 2 by mouth every day Marti Martinez DO 12/16 Multi For Her 50+ Tablets 1 po qd Annita Singh,CELL ROOM SUPERVISOR 10/21/2012 Lisinopril 5mg Tablets take one tablet by mouth once daily 30tabs Marti Martinez, 10/21/2012 Ibuprofen 200mg Tablets 1 qid prn PO Annita Singh,CELL ROOM SUPERVISOR 09/01/2012 Anastrozole 1mg Tablets 1 aissatou ry day Unknown Vitamin E 400Unit Capsules 1 by mouth every day Unknown Black Cohosh 540mg Capsules 1po every day Unknown Immunizations CPT Code Status Date Vaccine Lot # [id number] Given 01/25/2016 Adacel- Tetanus Diphtheria P ertussis (Age64 & Under) [id number] Vital Signs Date Vital Result Comment 05/24/2020 8:01am BP Systolic 112 mmHg RT Arm BP Diastolic 74 mmHg RT Arm Heart Rate 100 /min Height 59.75 inches 4'11.75" Weight 183.00 lb BMI (Body Mass Index) 36.0 kg/m2 11/18/2019 7:59am BP Systolic 130 mmHg BP Diastolic 80 mmHg Heart Rate 71 /min Height 59.75 inches 4'11.75" Weight 179.00 lb O2 % BldC Oximetry 97 % RM Air BMI (Body Mass Index) 35.2 kg/m2 Results Test Acquired Date Facility Test Result H/L Range Note PT & Aptt 01/04/2020 [facility]ter [address] [place] [address] [phone] Prothrombin Time 13.1 seconds Normal 11.8-14.0 Inr 0.97 Normal 1 Partial Thromboplastin Time 28.1 seconds Normal 25.0-38.4 CBC With Differential 01/04/2020 [facility] [address] [place] [address] [phone] White Blood Count 5.9 10 Normal 4.0-10.0 Red Blood Count 4.54 10 Normal 4.00-5.40 Hemoglobin 14.2 g/dL Normal 12.0-15.5 Hematocrit 41.3 % Normal 36.0-47.0 Mean Corpuscular Volume 91.0 fl Normal 80.0-96.0 Mean Corpuscular Hemoglobin 31.3 pg Normal 27.0-33.0 Mean Corpuscular HGB Conc 34.4 g/dL Normal 32.0-36.5 Red Cell Distribution Width 13.2 % Normal 11.5-14.5 Platelet Count, Automated 268 10 Normal 150-450 Neutrophils % 59.1 % Normal 36.0-66.0 Lymph % 33.7 % Normal 24.0-44.0 Ward % 3.9 % Normal 0.0-5.0 Eos % 2.2 % Normal 0.0-3.0 Baso % 0.8 % Normal 0.0-1.0 Immature Granulocyte % 0.3 % Normal 0-3.0 Nucleated Red Blood Cell % 0.0 % Normal 0-0 Neutrophils # 3.5 10 Normal 1.5-8.5 Lymph # 2.0 10 Normal 1.5-5.0 Ward # 0.2 10 Normal 0.0-0.8 Eos # 0.1 10 Normal 0.0-0.5 Baso # 0.1 10 Normal 0.0-0.2 Comprehensive Metabolic Profil 01/04/[address] [address] [phone] Glucose, Fasting 90 mg/dL Normal 70-100 Blood Urea Nitrogen 17 mg/dL Normal 7-18 Creatinine For GFR 0.61 mg/dL Normal 0.55-1.30 Glomerular Filtration Rate > 60.0 Normal >51 2 Sodium Level 140 mEq/L Normal 136-145 Potassium Serum 4.1 mEq/L Normal 3.5-5.1 Chloride Level 105 mEq/L Normal 98-107 Carbon Dioxide Level 33 mEq/L High 21-32 Anion Gap 2 mEq/L Low 8-16 Calcium Level 9.6 mg/dL Normal 8.5-10.1 Ast/Sgot 21 U/L Normal 7-37 Alt/SGPT 29 U/L Normal 12-78 Alkaline Phosphatase 116 U/L Normal 45-117 Bilirubin,Total 0.6 mg/dL Normal 0.2-1.0 Total Protein 6.7 GM/DL Normal 6.4-8.2 Albumin 3.9 GM/DL Normal 3.2-5.2 Albumin/Globulin Ratio 1.4 Normal 1.2-2.2 1 THERAPUTIC HUMAN INR VALUES INDICATIONS NORMAL RANGES PROPHYLAXIS/TREATMENT OF: VENOUS THROMBOSIS 2.0-3.0 PULMONARY EMBOLISM 2.0-3.0 PREVENTION OF SYSTEMIC EMBOLISM FROM: TISSUE HEART VALVES 2.0-3.0 ACUTE MYOCARDIAL INFARCTION 2.0-3.0 VALVULAR HEART DISEASE 2.0-3.0 ATRIAL FIBRILLATION 2.0-3.0 MECHANICAL VALVES(HIGH RISK) 2.5-3.5 RECURRENT MYOCARDIAL INFARCTION 2.5-3.5 2 Units are mL/min/1.73 m2 Chronic Kidney Disease Staging per NKF: Stage I & II GFR >=60 Normal to Mildly Decreased Stage III GFR 30-59 Moderately Decreased Stage IV GFR 15-29 Severely Decreased Stage V GFR <15 Very Little GFR Left ESRD GFR <15 on CONCERT MANAGER Procedures Date Code Description Status 04/13/2020 [id number] Mammogram Completed 04/20/2019 [id number] Mammogram Completed 04/12/2019 [id number] Mammogram Completed 04/08/2018 [id number] Mammogram Completed 04/07/2017 [id number] Mammogram Completed 04/03/2016 [id number] Mammogram Completed 04/01/2016 [id number] Mammogram Completed 03/06/2015 [id number] Mammogram Completed 12/07/2013 [id number] Mammogram Completed 02/14/2013 [id number] Colonoscopy Completed 11/30/2012 [id number] Mammogram Completed 11/21/2011 [id number] Mammogram Completed 11/12/2010 [id number] Mammogram Completed 11/09/2009 [id number] Mammogram Completed Medical Devices Description No Information Available Encounters Description No Information Available Assessments Description No Information Available Plan of Treatment 11/18/2019 - Marti Martinez DO* L71.9 Rosacea, unspecified * D51.9 Vitamin B12 deficiency anemia, unspecified * I10 Essential (primary) hypertension * M54.5 Low back pain * J30.9 Allergic rhinitis, unspecified * E78.00 Pure hypercholesterolemia, unspecified * E66.09 Other obesity due to excess calories * Z68.35 Body mass index (BMI) 35.0-35.9, adult * All * New Medication:* Metronidazole 0.75 % - once a day to face Functional Status Description No Information Available Mental Status Description No Information Available Referrals Description No Information Available
--- OUTSIDE RECORDS SUMMARY | 2020-07-11 17:05 | CCD | Continuity of Care Document ---
Author Author Ave BROWN MD Organization Unknown Address [address] [place] [address] Phone [phone] Care Team Providers Care Commercial Food Instructor Name Role Phone Marti Xavier SERAZack Unavailable Problems Active Problems Provider Date Hypertensive disorder Sarah Brown MD Onset: 03/15/2016 Social History Type Date Description Comments Sex Unknown Tobacco Use Start: Unknown Never Smoked Cigarettes ETOH Use Non-smoker, Occasional Drinker, Non-drug User Tobacco Use Start: Unknown Patient has never smoked Smoking Status Reviewed: 06/01/20 Patient has never smoked Exercise Type/Frequency Does not exercise Allergies, Adverse Reactions, Alerts Description No Known Drug Allergies Medications Active Medications SIG Qnty Indications Ordering Provide r Date Lisinopril 5mg Tablets Unknown Multivitamin Adult Tablets Unknown Osteo Bi-Flex Regular Strength 250-200mg Tablets Unknown Fish Oil 500mg Capsules Unknown Ibuprofen 200mg Tablets Unknown [facility] Formula Capsules Unknown Anastrozole 1mg Tablets 1 by mouth every day Unknown Black Cohosh 540mg Capsules Unknown Vitamin E 1000Unit Capsules Unknown Immunizations Description No Information Available Vital Signs Date Vital Result Comment 06/01/2020 8:46am BP Systolic 140 mmHg BP Diastolic 86 mmHg Height 59.25 inches 4'11.25" Weight 182.00 lb BMI (Body Mass Index) 36.4 kg/m2 BSA (Body Surface Area) 1.78 m2 05/30/2019 9:29am BP Systolic 136 mmHg BP Diastolic 84 mmHg Height 59.25 inches 4'11.25" Weight 181.00 lb BMI (Body Mass Index) 36.2 kg/m2 BSA (Body Surface Area) 1.77 m2 Results Test Acquired Date Facility Test Result H/L Range Note Thinprep W/Reflex HR HPV If Asc-US 06/01/2020 [facility] TP Reflex HPV ASCUS Normal Normal 1 TP Reflex HPV ASCUS SEE IMAGE 1 SPECIME N PART A. Cervical, Endocervical, ThinPrep Pap (Metal Temperer) CYTOLOGY HX-------- Other Information: Post-menopausal Previous Pap: 05/30/2019 NEGATIVE FINAL DIAGNOSIS---- INTERPRETATION: Negative for Intraepithelial Lesion or Malignancy. SPECIMEN ADEQUACY:Satisfactory for evaluation. Endocervical/transformation zone component cannot be determined due to the presence of atrophy. ADDITIONAL FINDINGS:Atrophic pattern. Procedures Date Code Description Status 05/13/2017 [id number] Mammogram Completed Medical Devices Description No Information Available Encounters Type Date Location Provider Dx Diagnosis Office Visit 06/01/2020 9:30a [facility] photographic printer Sarah Brown MD Z8 5.3 Personal history of malignant neoplasm of breast Z01.411 Encntr for freezing room worker exam (general ) (routine) w abnormal findings Z12.4 Encounter for screening for malignant neoplasm of cervix Z12.39 Encounter for oth screening for malignant neoplasm of breast Assessments Date Code Description Provider 06/01/2020 Z85.3 Personal history of malignant ne oplasm of breast Sarah Brown MD 06/01/2020 Z01.411 Encounter for gyneco logical examination (general) (routine) with abnormal findings Sarah Brown MD 06/01/2020 Z12.4 Encounter for screening for ritesh gnant neoplasm of cervix Sarah Brown MD 06/01/2020 Z12.39 Encounter for other screening for malignant neoplasm of breast Sarah Brown MD Plan of Treatment Future Appointment(s):* 06/03/2021 8:45 am - Sarah Brown MD at [facility] photographic printer 06/01/2020 - Sarah Brown MD* Z85.3 Personal history of malignant neoplasm of breast* New Xrays:* Pelvic US, Ordered: 06/01/20 * Z01.411 Encounter for gynecological examination (general) (routine) with abnormal findings * Z12.4 Encounter for screening for malignant neoplasm of cervix * Z12.39 Encounter for other screening for malignant neoplasm of breast Functional Status Description No Information Available Mental Status Description No Information Available Referrals Description No Information Available
--- OUTSIDE RECORDS SUMMARY | 2020-07-11 17:05 | CCD | Continuity of Care Document ---
Author Author Ave MARTINEZ DO Organization Unknown Address [address] [facility] [address] [place] [address] Phone [phone] Care Team Providers Care Palletizer Name Role Phone Marti Martinez DO AUTM Unavailable Problems Active Problems Provider Date Chronic rhinitis Annita Singh FNP Onset: 07/25/2011 Elevated blood-pressure reading without diagnosis of h ypertension Annita Singh FNP Onset: 07/25/2011 Low back pain Annita Singh FNP Onset: 07/25/2011 Migraine Annita SinghTRAM OPERATOR Onset: 07/25/2011 Essential hypertension Annita SinghTRAM OPERATOR Onset: 07/25/2011 Amenorrhea Annita SinghTRAM OPERATOR Onset: 07/25/2011 Dysplasia of cervix Annita Singh FNP Onset: 07/25/2011 Gastroesophageal reflux disease Annita SinghTRAM OPERATOR Onset: 0 07/25/2011 Gallstone Annita SinghTRAM OPERATOR Onset: 07/25/2011 Social History Type Date Description Comments Sex Unknown ETOH Use Consumes 5 glasses of wine per w [place] Tobacco Use Start: Unknown Patient has never smoked Allergies, Adverse Reactions, Alerts Description No Known Drug Allergies Medications Active Medications SIG Qnty Indications Ordering Provide r Date Melatonin 10mg Tablets 1 at bedtime by mouth Marti Martinez DO 06/01/2017 Lutein-Zeaxanthin 20-0.8mg Capsule s 1 by mouth every day Marti Martinez DO 06/01/2017 Fish Oil [place]-3 1200mg/360mg Caps ules 1 by mouth daily Marti Martinez DO 06/01/2017 Glucosamine Chondroitin Triple Strength Tablets 2 by mouth every day Marti Martinez DO 12/16 Multi For Her 50+ Tablets 1 po qd Annita Singh,TRAM OPERATOR 10/21/2012 Lisinopril 5mg Tablets take one tablet by mouth once daily 30tabs Marti Martinez,DO 10/21/2012 Ibuprofen 200mg Tablets 1 qid prn PO Annita Singh,TRAM OPERATOR 09/01/2012 Anastrozole 1mg Tablets 1 aissatou ry day Unknown Vitamin E 400Unit Capsules 1 by mouth every day Unknown Black Cohosh 540mg Capsules 1po every day Unknown Immunizations CPT Code Status Date Vaccine Lot # [id number] Given 01/25/2016 Adacel- Tetanus Diphtheria P ertussis (Age64 & Under) [id number] Vital Signs Date Vital Result Comment 05/24/2020 [...] Date Facility Test Result H/L Range Note Basic Metabolic Panel 05/24/2020 [facility] Vice Provost: Dr Andrew Green [place], [place] [id number] [phone] Glucose 71 mg/dL Low 74 - 99 1 BUN 19 mg/dL High 7 - 18 Creatinine 0.7 mg/dL 0.6 - 1.3 Sodium 141 mEq/L 136 - 145 Potassium 4.5 mEq/L 3.5 - 5.1 Chloride 103 mEq/L 98 - 107 Carbon Dioxide 33 mEq/L High 21 - 32 Calcium 9.3 mg/dL 8.5 - 10.1 GFR >= 60 mL/min >60 GFR >= 60 mL/min >60 2 PT & Aptt 01/04/2020 [facility] nter [address] [place] [address] [phone] Prothrombin Time 13.1 seconds Normal 11.8-14.0 Inr 0.97 Normal 3 Partial Thromboplastin Time 28.1 seconds Normal 25.0-38.4 CBC With Differential 01/04/[address] [address] [phone] White Blood Count 5.9 10 Normal 4.0-10.0 [...] 36.0-66.0 Lymph % 33.7 % Normal 24.0-44.0 [place] % 3.9 % Normal 0.0-5.0 Eos % 2.2 % Normal 0.0-3.0 Baso % 0.8 % Normal 0.0-1.0 Immature Granulocyte % 0.3 % Normal 0-3.0 Nucleated Red Blood Cell % 0.0 % Normal 0-0 Neutrophils # 3.5 10 Normal 1.5-8.5 Lymph # 2.0 10 Normal 1.5-5.0 [place] # 0.2 10 Normal 0.0-0.8 Eos # 0.1 10 Normal 0.0-0.5 Baso # 0.1 10 Normal 0.0-0.2 Comprehensive Metabolic Profil 01/04/[address] [id number] [phone] Glucose, Fasting 90 mg/dL Normal 70-100 Blood Urea Nitrogen 17 mg/dL Normal 7-18 Creatinine For GFR 0.61 mg/dL Normal 0.55-1.30 Glomerular Filtration Rate > 60.0 Normal >51 4 Sodium Level 140 mEq/L Normal 136-145 Potassium [...] 3.2-5.2 Albumin/Globulin Ratio 1.4 Normal 1.2-2.2 1 100-125 mg/dL PRE-DIABET ES/FASTING >126 mg/dL DIABETES/FASTING 2 CHRONIC KIDNEY DISEASE STAGI NG PER NKF STAGE I & II GFR >= 60 NORMAL TO MILDLY DECREASED STAGE III GFR 30-59 MODERATELY DECREASED STAGE IV GFR 15-29 SEVERELY DECREASED STAGE V GFR <15 VERY LITTLE GFR LEFT ESRD GFR <15 ON LAND LEASES AND RENTALS MANAGER 3 THERAPUTIC HUMAN INR VALUES INDICATIONS NORMAL RANGES PROPHYLAXIS/TREATMENT OF: VENOUS THROMBOSIS 2.0-3.0 PULMONARY EMBOLISM 2.0-3.0 PREVENTION OF SYSTEMIC EMBOLISM FROM: TISSUE HEART VALVES 2.0-3.0 ACUTE MYOCARDIAL INFARCTION 2.0-3.0 VALVULAR HEART DISEASE 2.0-3.0 ATRIAL FIBRILLATION 2.0-3.0 MECHANICAL VALVES(HIGH RISK) 2.5-3.5 RECURRENT MYOCARDIAL INFARCTION 2.5-3.5 4 Units are mL/min/1.73 m2 Chronic Kidney Disease Staging per NKF: Stage I & II GFR >=60 Normal to Mildly Decreased Stage III GFR 30-59 Moderately Decreased Stage IV GFR 15-29 Severely Decreased Stage V GFR <15 Very Little GFR Left ESRD GFR <15 on LAND LEASES AND RENTALS MANAGER Procedures Date Code Description Status 04/13/2020 [id number] Mammogram Completed 04/20/2019 [id number] Mammogram Completed 04/12/2019 [id number] Mammogram Completed 04/08/2018 [id number] Mammogram Completed 04/07/2017 [id number] Mammogram Completed 04/03/2016 [id number] Mammogram Completed 04/01/2016 [id number] Mammogram Completed 03/06/2015 [id number] Mammogram Completed 12/07/2013 [id number] Mammogram Completed 02/14/2013 [id number] Colonoscopy Completed 11/30/2012 [id number] Mammogram Completed 11/21/2011 [id number] Mammogram Completed 11/12/2010 [id number] Mammogram Completed 11/09/2009 [id number] Mammogram Completed Medical Devices Description No Information Available Encounters Type Date Location Provider Dx Diagnosis Office Visit 05/24/2020 8:00a [facility] Marti Martinez DO I10 Essential (primary) hypertension C50.212 Malig neoplasm of upper-inne r quadrant of left female breast D51.9 Vitamin B12 deficiency anemi a, unspecified E78.5 Hyperlipidemia, unspecified K43.9 Ventral hernia without obstr uction or gangrene Assessments Date Code Description Provider 05/24/2020 I10 Essential (primary) hypertension Marti Martinez, 05/24/2020 C50.212 Malignant neoplasm o f upper-inner quadrant of left female breast Marti Martinez DO 05/24/2020 D51.9 Vitamin B12 deficiency anemia, u nspecified Marti Martinez DO 05/24/2020 E78.5 Hyperlipidemia, unspecified Naman Martinez DO 05/24/2020 K43.9 Ventral hernia without obstructi on or gangrene Marti Martinez DO Plan of Treatment Future Appointment(s):* 11/27/2020 8:00 am - Marti Martinez DO at [facility] 05/24/2020 - Marti Martinez DO* I10 Essential (primary) hypertension * C50.212 Malignant neoplasm of upper-inner quadrant of left female breast * D51.9 Vitamin B12 deficiency anemia, unspecified * E78.5 Hyperlipidemia, unspecified * K43.9 Ventral hernia without obstruction or gangrene * All * Comments:* I'll see the patient back for a follow up visit as scheduled. Functional Status Description No Information Available Mental Status Description No Information Available Referrals Description No Information Available
--- OUTSIDE RECORDS SUMMARY | 2020-07-11 17:05 | CCD | Continuity of Care Document ---
Author Author Ave MARTINEZ DO Organization Unknown Address [address] [facility] [address] [place] [address] Phone [phone] Care Team Providers Care Machine Programmer Name Role Phone Marti Martinez DO AUTM Unavailable Problems Active Problems Provider Date Chronic rhinitis Annita Singh FNP Onset: 07/25/2011 Elevated blood-pressure reading without diagnosis of h ypertension Annita Singh FNP Onset: 07/25/2011 Low back pain Annita Singh FNP Onset: 07/25/2011 Migraine Annita Singh FNP Onset: 07/25/2011 Essential hypertension Annita SinghFIELD HOCKEY AND LACROSSE COACH Onset: 07/25/2011 Amenorrhea Annita Singh FNP Onset: 07/25/2011 Dysplasia of cervix Annita Singh FNP Onset: 07/25/2011 Gastroesophageal reflux disease Annita SinghFIELD HOCKEY AND LACROSSE COACH Onset: 0 07/25/2011 Gallstone Annita SinghFIELD HOCKEY AND LACROSSE COACH Onset: 07/25/2011 Social History Type Date Description Comments Sex Unknown ETOH Use Consumes 5 glasses of wine per w [place] Tobacco Use Start: Unknown Patient has never smoked Allergies, Adverse Reactions, Alerts Description No Known Drug Allergies Medications Active Medications SIG Qnty Indications Ordering Provide r Date Melatonin 10mg Tablets 1 at bedtime by mouth Marti Martinez DO 06/01/2017 Lutein-Zeaxanthin 20-0.8mg Capsule s 1 by mouth every day Marti Martinez DO 06/01/2017 Fish Oil [place]-3 1200mg/360mg Caps ules 1 by mouth daily Marti Martinez DO 06/01/2017 Glucosamine Chondroitin Triple Strength Tablets 2 by mouth every day Marti Martinez DO 12/16 Multi For Her 50+ Tablets 1 po qd Annita Singh,FIELD HOCKEY AND LACROSSE COACH 10/21/2012 Lisinopril 5mg Tablets take one tablet by mouth once daily 30tabs Marti Martinez,DO 10/21/2012 Ibuprofen 200mg Tablets 1 qid prn PO Annita Singh,FIELD HOCKEY AND LACROSSE COACH 09/01/2012 Anastrozole 1mg Tablets 1 aissatou ry day Unknown Vitamin E 400Unit Capsules 1 by mouth every day Unknown Black Cohosh 540mg Capsules 1po every day Unknown Immunizations CPT Code Status Date Vaccine Lot # [id number] Given 01/25/2016 Adacel- Tetanus Diphtheria P ertussis (Age64 & Under) [id number] Vital Signs Date Vital Result Comment 05/24/2020 [...] H/L Range Note Basic Metabolic Panel 05/24/2020 [facility] Fruit Grader Operator: [place] [address] [phone] Glucose 71 mg/dL Low 74 - 99 [...] mL/min >60 2 PT & Aptt 01/04/2020 [facility] nter [address] [place] [address] [phone] Prothrombin Time 13.1 seconds Normal 11.8-14.0 Inr 0.97 Normal 3 Partial Thromboplastin Time 28.1 seconds Normal 25.0-38.4 CBC With Differential 01/04/[address] [address] [phone] White Blood Count 5.9 10 Normal 4.0-10.0 [...] 36.0-66.0 Lymph % 33.7 % Normal 24.0-44.0 [place] % 3.9 % Normal 0.0-5.0 Eos % 2.2 % Normal 0.0-3.0 Baso % 0.8 % Normal 0.0-1.0 Immature Granulocyte % 0.3 % Normal 0-3.0 Nucleated Red Blood Cell % 0.0 % Normal 0-0 Neutrophils # 3.5 10 Normal 1.5-8.5 Lymph # 2.0 10 Normal 1.5-5.0 [place] # 0.2 10 Normal 0.0-0.8 Eos # 0.1 10 Normal 0.0-0.5 Baso # 0.1 10 Normal 0.0-0.2 Comprehensive Metabolic Profil 01/04/[address] [address] [phone] Glucose, Fasting 90 mg/dL Normal 70-100 Blood [...] LITTLE GFR LEFT ESRD GFR <15 ON WEB SUPPORT ENGINEER 3 THERAPUTIC HUMAN INR VALUES INDICATIONS NORMAL [...] Little GFR Left ESRD GFR <15 on WEB SUPPORT ENGINEER Procedures Date Code Description Status 04/13/2020 [id number] Mammogram Completed 04/20/2019 [id number] Mammogram Completed 04/12/2019 [id number] Mammogram Completed 04/08/2018 [id number] Mammogram Completed 04/07/2017 [id number] Mammogram Completed 04/03/2016 [id number] Mammogram Completed 04/01/2016 [id number] Mammogram Completed 03/06/2015 [id number] Mammogram Completed 12/07/2013 [id number] Mammogram Completed 02/14/2013 [id number] Colonoscopy Completed 11/30/2012 [id number] Mammogram Completed 11/21/2011 [id number] Mammogram Completed 11/12/2010 [id number] Mammogram Completed 11/09/2009 [id number] Mammogram Completed Medical Devices Description No Information Available Encounters Description No Information Available Assessments Date Code Description Provider 05/24/2020 I10 Essential (primary) hypertension Matri Martinez DO 05/24/2020 C50.912 Malignant neoplasm of unspecifie d site of left female breast Marti Martinez DO 05/24/2020 D51.9 Vitamin B12 deficiency anemia, u nspecified Marti Martinez DO 05/24/2020 E78.5 Hyperlipidemia, unspecified Naman Martinez DO 05/24/2020 K43.9 Ventral hernia without obstructi on or gangrene Marti Martinez DO Plan of Treatment Future Appointment(s):* 11/27/2020 8:00 am - Marti Martinez DO at [facility] 05/24/2020 - Marti Martinez DO* I10 Essential (primary) hypertension * C50.912 Malignant neoplasm of unspecified site of left female breast * D51.9 Vitamin B12 deficiency anemia, unspecified * E78.5 Hyperlipidemia, unspecified * K43.9 Ventral hernia without obstruction or gangrene * All * Comments:* I'll see the patient back for a follow up visit as scheduled. Functional Status Description No Information Available Mental Status Description No Information Available Referrals Description No Information Available
--- OUTSIDE RECORDS SUMMARY | 2020-07-11 17:05 | CCD | Continuity of Care Document ---
Author Author Ave TORREZ Organization Unknown Address [address] [place] [address] [place] [address] Phone [phone] Care Team Providers Care Oyster Culler Name Role Phone Marti Xavier DO AUTM [phone] [employer] AUTM [phone] Problems Active Problems Provider Date Acute sinusitis MARLA Patel Onset: 08/15/2012 Social History Type Date Description Comments Sex Unknown Tobacco Use Start: Unknown Never Smoked Cigarettes ETOH Use Drinks 2 Alcoholic Beverages Per Week Tobacco Use Start: Unknown Patient has never smoked Smoking Status Reviewed: 06/06/20 Patient has never smoked Allergies, Adverse Reactions, Alerts Description No Known Drug Allergies Medications Active Medications SIG Qnty Indications Ordering Provide r Date Lisinopril 5mg Tablets take one tablet in the in the morning Unknown Mvi Unknown Fish Oil Unknown Anastrozole Unknown Immunizations CPT Code Status Date Vaccine Lot # [id number] Given 03/29/2008 Influenza Virus Split 3 Yrs And Above For Intramuscular Use Vital Signs Date Vital Result Comment 06/06/2020 12:48pm BP Systolic 154 mmHg BP Diastolic 90 mmHg Heart Rate 86 /min Respiratory Rate 18 /min O2 % BldC Oximetry 96 % Body Temperature 98.0 F Weight 180.00 lb Height 59 inches 4'11" BMI (Body Mass Index) 36.4 kg/m2 Pain Level 1 05/24/2015 8:17am BP Systolic 140 mmHg BP Diastolic 90 mmHg Heart Rate 112 /min O2 % BldC Oximetry 94 % Body Temperature 98.3 F Weight 173.00 lb Height 60 inches 5'0" BMI (Body Mass Index) 33.8 kg/m2 Pain Level 3 Results Description No Information Available Procedures Description No Information Available Medical Devices Description No Information Available Encounters Type Date Location Provider Dx Diagnosis Office Visit 06/06/2020 12:50p Main Office MARLA Veronica J06 .9 Acute upper respiratory infection, unspecified Z20.828 Contact w and exposure to ot h viral communicable diseases Assessments Date Code Description Provider 06/06/2020 J06.9 Acute upper respiratory infectio n, unspecified MARLA Veronica 06/06/2020 Z20.828 Contact with and ([place] spected) exposure to other viral communicable diseases MARLA Vernoica Plan of Treatment No Information Available Functional Status Description No Information Available Mental Status Description No Information Available Referrals Description No Information Available
--- OUTSIDE RECORDS SUMMARY | 2020-07-11 17:05 | CCD | Continuity of Care Document ---
Author Author Ave BROWN MD Organization Unknown Address [address] [place] [address] Phone [phone] Care Team Providers Care Char Filter Tank Tender Head Name Role Phone Marti Xavier SERAZack Unavailable [...] BSA (Body Surface Area) 1.77 m2 Results Description No Information Available Procedures Date Code Description Status 05/13/2017 [id number] Mammogram Completed Medical Devices Description No Information Available Encounters Type Date Location Provider Dx Diagnosis Office Visit 06/01/2020 9:30a [facility] [employer] representative education [facility] Sarah Brown MD Z8 5.3 Personal history of malignant neoplasm of breast Z01.411 Encntr for woven wood shade assembler exam (general ) (routine) w abnormal findings [...] 8:45 am - Sarah Brown MD at [facility] sales representative education courses 06/01/2020 - Sarah Brown MD* Z85.3 Personal history of malignant neoplasm of breast* New Xrays:* Pelvic US, Ordered: 06/01/20 * Z01.411 Encounter for gynecological examination (general) (routine) with abnormal findings * Z12.4 Encounter for screening for malignant neoplasm of cervix* New Labs:* Thinprep W/Reflex HR HPV If Asc-US, Ordered: 06/01/20 * Z12.39 Encounter for other screening for malignant neoplasm of breast Functional Status Description No Information Available Mental Status Description No Information Available Referrals Description No Information Available
--- OUTSIDE RECORDS SUMMARY | 2020-07-11 17:05 | CCD | Continuity of Care Document ---
Author Author Ave BROWN MD Organization Unknown Address [address] [place] [address] Phone [phone] Care Team Providers Care Assistant Project Manager Name Role Phone Marti Xavier SERAZack Unavailable [...] Available Procedures Date Code Description Status 05/13/2017 [id number] Mammogram Completed Medical Devices Description No Information Available Encounters Description No Information Available Assessments Date Code Description Provider 06/01/2020 Z85.3 [...] 8:45 am - Sarah Brown MD at [facility] environmental field office manager 06/01/2020 - Sarah Brown MD* Z85.3 Personal [...]
--- OUTSIDE RECORDS SUMMARY | 2020-07-11 17:05 | CCD | Continuity of Care Document ---
Author Author Ave TORREZ Organization Unknown Address [address] [place] [address] [place] [address] Phone [phone] Care Team Providers Care Information Systems Professor Name Role Phone Marti Xavier DO AUTM [phone] [employer] AUTM [phone] Problems Active Problems Provider Date Acute sinusitis [...] exposure to other viral communicable diseases MARLA Veronica Plan of Treatment No Information Available Functional Status Description No Information Available Mental Status Description No Information Available Referrals Description No Information Available
--- OUTSIDE RECORDS SUMMARY | 2020-07-11 17:06 | CCD ---
Author Author [facility] Organization [facility] Address Unknown Phone Unavailable Care Team Providers Care Licensed Mortgage Loan Officer Name Role Phone Duc, Marti DO Unavailable Unavailable Duc, Marti DO Unavailable Unavailable Duc, Marti DO Unavailable Unavailable Duc, Marti DO Unavailable Unavailable Duc, Marti DO Unavailable Unavailable Duc, Marti DO Unavailable Unavailable Duc, Marti DO Unavailable Unavailable Duc, Marti DO Unavailable Unavailable Duc, Marti DO Unavailable Unavailable Duc, Marti DO Unavailable Unavailable Duc, Marti DO Unavailable Unavailable Duc, Marti DO Unavailable Unavailable Duc, Marti DO Unavailable Unavailable Duc, Marti DO Unavailable Unavailable Duc, Marti DO Unavailable Unavailable Duc, Marti DO Unavailable Unavailable Duc, Marti DO Unavailable Unavailable Duc, Marti DO Unavailable Unavailable Duc, Marti DO Unavailable Unavailable Duc, Marti DO Unavailable Unavailable Duc, Marti DO Unavailable Unavailable Duc, Marti DO Unavailable Unavailable Duc, Marti DO Unavailable Unavailable Duc, Marti DO Unavailable Unavailable Duc, Marti DO Unavailable Unavailable Duc, Marti DO Unavailable Unavailable Duc, Marti DO Unavailable Unavailable Duc, Marti DO Unavailable Unavailable Duc, Marti DO Unavailable Unavailable Duc, Marti DO Unavailable Unavailable Duc, Marti DO Unavailable Unavailable Duc, Marti DO Unavailable Unavailable Duc, Marti DO Unavailable Unavailable Duc, Marti DO Unavailable Unavailable Duc, Marti DO Unavailable Unavailable Duc, Marti DO Unavailable Unavailable Duc, Marti DO Unavailable Unavailable Duc, Marti DO Unavailable Unavailable Duc, Marti DO Unavailable Unavailable Duc, Marti DO Unavailable Unavailable Duc, Marti DO Unavailable Unavailable Duc, Marti DO Unavailable Unavailable Duc, Marti DO Unavailable Unavailable Duc, Marti DO Unavailable Unavailable Duc, Marti DO Unavailable Unavailable Duc, Marti DO Unavailable Unavailable Duc, Marti DO Unavailable Unavailable Duc, Marti DO Unavailable Unavailable Duc, Marti DO Unavailable Unavailable Duc, Marti DO Unavailable Unavailable Duc, Marti DO Unavailable Unavailable Duc, Marti DO Unavailable Unavailable Duc, Marti DO Unavailable Unavailable Duc, Marti DO Unavailable Unavailable Duc, Marti DO Unavailable Unavailable Duc, Marti DO Unavailable Unavailable Duc, Marti DO Unavailable Unavailable Duc, Marti DO Unavailable Unavailable Duc, Marti DO Unavailable Unavailable Duc, Marti DO Unavailable Unavailable Duc, Marti DO Unavailable Unavailable Duc, Marti DO Unavailable Unavailable Duc, Marti DO Unavailable Unavailable Duc, Marti DO Unavailable Unavailable Duc, Marti DO Unavailable Unavailable Duc, Marti DO Unavailable Unavailable Duc, Marti DO Unavailable Unavailable Duc, Marti DO Unavailable Unavailable Duc, Marti DO Unavailable Unavailable Duc, Marti DO Unavailable Unavailable Duc, Marti DO Unavailable Unavailable Duc, Marti DO Unavailable Unavailable BROWN, L MIKE MUSTAFA Unavailable Unavailable BROWN, L MIKE MUSTAFA Unavailable Unavailable BROWN, Carla MCKEON MD Unavailable Unavailable BROWN, Carla MCKEON MD Unavailable Unavailable BROWN, Carla MCKEON MD Unavailable Unavailable BROWN, Carla MCKEON MD Unavailable Unavailable BROWN, Carla MCKEON MD Unavailable Unavailable BROWN, Carla MCKEON MD Unavailable Unavailable BROWN, Carla MCKEON MD Unavailable Unavailable BROWN, Carla MCKEON MD Unavailable Unavailable BROWN, L MIKE MUSTAFA Unavailable Unavailable BROWN, Carla MCKEON MD Unavailable Unavailable BROWN, Carla MCKEON MD Unavailable Unavailable BROWN, Calra MCKEON MD Unavailable Unavailable BROWN, Carla MCKEON MD Unavailable Unavailable BROWN, L MIKE MUSTAFA Unavailable Unavailable BROWN, Carla MCKEON MD Unavailable Unavailable BROWN, Carla MCKEON MD Unavailable Unavailable BROWN, Carla MCKEON MD Unavailable Unavailable BROWN, Carla MCKEON MD Unavailable Unavailable BROWN, Carla MCKEON MD Unavailable Unavailable BROWN, Carla MCKEON MD Unavailable Unavailable BROWN, Carla MCKEON MD Unavailable Unavailable BROWN, Carla MCKEON MD Unavailable Unavailable BROWN, Carla MCKEON MD Unavailable Unavailable BROWN, Carla MCKEON MD Unavailable Unavailable BROWN, Carla MCKEON MD Unavailable Unavailable BROWN, L MIKE MUSTAFA Unavailable Unavailable BROWN, L MIKE MUSTAFA Unavailable Unavailable BROWN, L MIKE MUSTAFA Unavailable Unavailable BROWN, L MIKE MUSTAFA Unavailable Unavailable BROWN, L MIKE MUSTAFA Unavailable Unavailable BROWN, L MIKE MUSTAFA Unavailable Unavailable BROWN, L MIKE MUSTAFA Unavailable Unavailable BROWN, L MIKE MUSTAFA Unavailable Unavailable BROWN, L MIKE MUSTAFA Unavailable Unavailable BROWN, L MIKE MUSTAFA Unavailable Unavailable BRONW, L MIKE MUSTAFA Unavailable Unavailable BROWN, L MIKE MUSTAFA Unavailable Unavailable BROWN, L MIKE MUSTAFA Unavailable Unavailable BROWN, L MIKE MUSTAFA Unavailable Unavailable BROWN, L MIKE MUSTAFA Unavailable Unavailable BROWN, L MIKE MUSTAFA Unavailable Unavailable BROWN, L MIKE MUSTAFA Unavailable Unavailable BROWN, L MIKE MUSTAFA Unavailable Unavailable BROWN, L MIKE MUSTAFA Unavailable Unavailable BROWN, L MIKE MUSTAFA Unavailable Unavailable BROWN, L MIKE MUSTAFA Unavailable Unavailable BROWN, L MIKE MUSTAFA Unavailable Unavailable BROWN, L MIKE MUSTAFA Unavailable Unavailable BROWN, L MIKE MUSTAFA Unavailable Unavailable BROWN, L MIKE MUTSAFA Unavailable Unavailable BORWN, L MIKE MUSTAFA Unavailable Unavailable BROWN, L MIKE MUSTAFA Unavailable Unavailable BROWN, L MIKE MUSTAFA Unavailable Unavailable BROWN, L MIKE MUSTAFA Unavailable Unavailable BROWN, L MIKE MUSTAFA Unavailable Unavailable BROWN, L MIKE MUSTAFA Unavailable Unavailable BROWN, L MIKE MUSTAFA Unavailable Unavailable BROWN, L MIKE MUSTAFA Unavailable Unavailable BROWN, L MIKE MUSTAFA Unavailable Unavailable BROWN, L MIKE MUSTAFA Unavailable Unavailable BROWN, L MIKE MUSTAFA Unavailable Unavailable BROWN, L MIKE MUSTAFA Unavailable Unavailable BROWN, L MIKE MUSTAFA Unavailable Unavailable BROWN, L MIKE MUSTAFA Unavailable Unavailable BROWN, L MIKE MUSTAFA Unavailable Unavailable BROWN, L MIKE MUSTAFA Unavailable Unavailable BROWN, L MIKE MUSTAFA Unavailable Unavailable BROWN, L MIKE MUSTAFA Unavailable Unavailable BROWN, L MIKE MUSTAFA Unavailable Unavailable BROWN, L MIKE MUSTAFA Unavailable Unavailable BROWN, L MIKE MUSTAFA Unavailable Unavailable BROWN, L MIKE MUSTAFA Unavailable Unavailable BROWN, L MIKE MUSTAFA Unavailable Unavailable BROWN, L MIKE MUSTAFA Unavailable Unavailable BROWN, L MIKE MUSTAFA Unavailable Unavailable BROWN, L MIKE MUSTAFA Unavailable Unavailable BROWN, L MIKE MUSTAFA Unavailable Unavailable BROWN, L MIKE MUSTAFA Unavailable Unavailable BROWN, L MIKE MUSTAFA Unavailable Unavailable BROWN, L MIKE MUSTAFA Unavailable Unavailable BROWN, L MIKE MD Unavailable Unavailable Carla BROWN MD Unavailable Unavailable Carla BROWN MD Unavailable Unavailable Carla BROWN MD Unavailable Unavailable EARNEST, Channing CURRY MD Unavailable Unavailable EARNEST, Channing CURRY MD Unavailable Unavailable EARNEST, Channing CURRY MD Unavailable Unavailable EARNEST, Channing CURRY MD Unavailable Unavailable EARNEST, Channing CURRY MD Unavailable Unavailable EARNEST, O ANTOINETTE MUSTAFA Unavailable Unavailable EARNEST, O ANTOINETTE MUSTAFA Unavailable Unavailable EARNEST, O ANTOINETTE MUSTAFA Unavailable Unavailable EARNEST, O ANTOINETTE MUSTAFA Unavailable Unavailable EARNEST, O ANTOINETTE MUSTAFA Unavailable Unavailable EARNEST, O ANTOINETTE MUSTAFA Unavailable Unavailable EARNEST, O ANTOINETTE MUSTAFA Unavailable Unavailable EARNEST, O ANTOINETTE MUSTAFA Unavailable Unavailable EARNEST, O ANTOINETTE MUSTAFA Unavailable Unavailable EARNEST, O ANTOINETTE MUSTAFA Unavailable Unavailable EARNEST, O ANTOINETTE MUSTAFA Unavailable Unavailable EARNEST, O ANTOINETTE MUSTAFA Unavailable Unavailable EARNEST, O ANTOINETTE MUSTAFA Unavailable Unavailable EARNEST, Channing CURRY MD Unavailable Unavailable EARNEST, Channing CURRY MD Unavailable Unavailable EARNEST, Channing CURRY MD Unavailable Unavailable EARNEST, Channing CURRY MD Unavailable Unavailable EARNEST, Channing CURRY MD Unavailable Unavailable EARNEST, Channing CURRY MD Unavailable Unavailable EARNEST, O ANTOINETTE MUSTAFA Unavailable Unavailable EARNEST, Channing CURRY MD Unavailable Unavailable EARNEST, Channing CURRY MD Unavailable Unavailable EARNEST, Channing CURRY MD Unavailable Unavailable EARNEST, Channing CURRY MD Unavailable Unavailable EARNEST, O ANTOINETTE MUSTAFA Unavailable Unavailable EARNEST, O ANTOINETTE MUSTAFA Unavailable Unavailable EARNEST, O ANTOINETTE MUSTAFA Unavailable Unavailable EARNEST, O ANTOINETTE MUSTAFA Unavailable Unavailable EARNEST, O ANTOINETTE MUSTAFA Unavailable Unavailable EARNEST, O ANTOINETTE MUSTAFA Unavailable Unavailable EARNEST, O ANTOINETTE MUSTAFA Unavailable Unavailable EARNEST, O ANTOINETTE MUSTAFA Unavailable Unavailable EARNEST, O ANTOINETTE MUSTAFA Unavailable Unavailable EARNEST, Channing CURRY MD Unavailable Unavailable EARNEST, O ANTOINETTE MUSTAFA Unavailable Unavailable EARNEST, Channing CURRY MD Unavailable Unavailable EARNEST, Channing CURRY MD Unavailable Unavailable LETTIERE, A MACKENZIE PA Unavailable Unavailable LETTIERE, A MACKENZIE PA Unavailable Unavailable LETTIERE, A MACKENZIE PA Unavailable Unavailable LETTIERE, A MACKENZIE PA Unavailable Unavailable LETTIERE, A MACKENZIE PA Unavailable Unavailable LETTIERE, A MACKENZIE PA Unavailable Unavailable LETTIERE, A MACKENZIE PA Unavailable Unavailable LETTIERE, A MACKENZIE PA Unavailable Unavailable LETTIERE, A MACKENZIE PA Unavailable Unavailable LETTIERE, A MACKENZIE PA Unavailable Unavailable LETTIERE, A MACKENZIE PA Unavailable Unavailable LETTIERE, A MACKENZIE PA Unavailable Unavailable LETTIERE, A MACKENZIE PA Unavailable Unavailable LETTIERE, A MACKENZIE PA Unavailable Unavailable LETTIERE, A MACKENZIE PA Unavailable Unavailable LETTIERE, A MACKENZIE PA Unavailable Unavailable LETTIERE, A MACKENZIE PA Unavailable Unavailable LETTIERE, A MACKENZIE PA Unavailable Unavailable LETTIERE, A MACKENZIE PA Unavailable Unavailable LETTIERE, A MACKENZIE PA Unavailable Unavailable LETTIERE, A MACKENZIE PA Unavailable Unavailable LETTIERE, A MACKENZIE PA Unavailable Unavailable LETTIERE, A MACKENZIE PA Unavailable Unavailable LETTIERE, A MACKENZIE PA Unavailable Unavailable LETTIERE, A MACKENZIE PA Unavailable Unavailable LETTIERE, A MACKENZIE PA Unavailable Unavailable LETTIERE, A MACKENZIE PA Unavailable Unavailable LETTIERE, A MACKENZIE PA Unavailable Unavailable LETTIERE, A MACKENZIE PA Unavailable Unavailable Re-disclosure Warning The records that you are about to access may contain information from federally-assisted alcohol or drug abuse programs. If such information is present, then the following federally mandated warning applies: This information has been disclosed to you from records protected by federal confidentiality rules (42 CFR part 2). The federal rules prohibit you from making any further disclosure of this information unless further disclosure is expressly permitted by the written consent of the person to whom it pertains or as otherwise permitted by 42 CFR part 2. A general authorization for the release of medical or other information is NOT sufficient for this purpose. The Federal rules restrict any use of the information to criminally investigate or prosecute any alcohol or drug abuse patient.The records that you are about to access may contain highly sensitive health information, the redisclosure of which is protected by Article 27-F of the [facility] Public Health law. If you continue you may have access to information: Regarding HIV / AIDS; Provided by facilities licensed or operated by the [facility] Office of Mental Health; or Provided by the [facility] Office for People With Developmental Disabilities. If such information is present, then the following [facility] mandated warning applies: This information has been disclosed to you from confidential records which are protected by state law. State law prohibits you from making any further disclosure of this information without the specific written consent of the person to whom it pertains, or as otherwise permitted by law. Any unauthorized further disclosure in violation of state law may result in a fine or skilled nursing sentence or both. A general authorization for the release of medical or other information is NOT sufficient authorization for further disc losure. Allergies and Adverse Reactions Type Description Substance Reaction Status Data Source(s ) Drug Class NO KNOWN ALLERGIES NO KNOWN ALLERGIES [facility] Family History Family Member Name Family Member Gender Family Member Status Date o f Status Description Data Source(s) Unknown Unknown Problem [facility] ([facility]) Unknown Female Problem [facility] ([facility]) Unknown Female Encounters Encounter Providers Location Date Indications Data Source(s ) Outpatient Attender: MACKENZIE García Prim perlita 06/06/2020 11:50:00 AM EST [facility] ([facility] Outpatient Attender: MIKE BROWN MD [employer] [employer] 12/2020 08:30:00 AM EST [facility] ([facility]) Outpatient Attender: Marti Villanueva 05/24 07:00:00 AM EST [facility] ([facility] ) Outpatient Admitter: ANTOINETTE TINOCO MDReferrer: ANTOINETTE OLMOS MD 11/23/2019 12:00:00 AM EDT Malignant neoplasm of unspecified site o f unspecified female breast [facility] Malignant neoplasm of unspecified site o f unspecified female breast Outpatient Attender: Marti Villanueva 11/17 08:00:00 AM EDT [facility] ([facility] ) Outpatient Referrer: MIKE BROWN MD 11/14/2019 05:59:00 AM EDT [facility] Outpatient Referrer: MIKE BROWN MD 10/13/2019 06:24:00 AM EDT [facility] Outpatient Attender: ANTOINETTE Us/Wendy/Praveen/Re indl 10/10/2019 02:00:00 PM EDT [facility] ([facility]) Outpatient Attender: ANTOINETTE Meléndez/Praveen/Re indl 09/26/2019 10:30:00 AM EDT [facility] ([facility]) Outpatient Attender: ANTOINETTE Us/Wendy/Praveen/Re indl 07/04/2019 01:30:00 PM EST [facility] ([facility] Outpatient Referrer: MIKE BROWN MD 06/01/2019 01:57:00 PM EST [facility] Outpatient Referrer: MIKE BROWN MD 05/30/2019 05:30:00 PM EST [facility] Outpatient Attender: MIKE BROWN MD [facility] 10/2019 08:30:00 AM EST [facility] ([facility]) Outpatient Attender: ANTOINETTE Us/Wendy/Praveen/Re indl 05/23/2019 10:15:00 AM EST [facility] ([facility] ) Outpatient Attender: Marti Villanueva 05/17 07:00:00 AM EST [facility] ([facility] ) Medications Medication Brand Name Start Date Product Form Dose Route Admi nistrative Instructions Pharmacy Instructions Status Indications Reaction Description Data Source(s) Metronidazole 7.5 MG/ML Topical Lotion Metronidazole 0 12:00:00 AM EDT active [facility] ( [facility]) Insurance Providers Payer name Policy type / Coverage type Policy ID Covered alliance party ID Covered alliance party's relationship to rodriguez Policy Rodriguez Plan Information [employer] [place]/307 [id number] SP [id number] [place] [place]/307 [id number] SP [id number] EXCELLUS H [id number] Self [id number] [employer] [place] 302/307 [id number] SP [id number] EXCELLUS BCBS B [id number] S [id number] [employer] [place] P[place] 302/307 [id number] SP [id number] [place] [place] 302/307 [id number] SP [id number] [place] [place]/307 [id number] SP [id number] BS [place] Trad/MX Medigap Part B [id number] Self [id number] BS [place] Trad/MX Medigap Part B [id number] Self [id number] BS Fann[place] Trad/MX Commercial [id number] Self [id number] [facility] Healthcare Commercial [id number] Family Dependent [id number] BS [place] Trad/MX Medigap Part B [id number] Self [id number] BS [place] Trad/MX Commercial [id number] Self [id number] [employer] [place]/307 [id number] SP [id number] EXCELLUS BCBS B [id number] S [id number] [facility] [place] Commercial [id number] Self [id number] [employer] [place] PPO 302/307 [id number] SP [id number] [employer] [place] 302/307 [id number] SP [id number] BS [place] Trad/MX Medigap Part B [id number] Self [id number] BS [employer] Trad/MX Commercial [id number] Self [id number] BS [place] Trad/MX Commercial [id number] Self [id number] EXCELLUS BCBS B [id number] S [id number] [employer] [place] PPO 302/307 [id number] SP [id number] EXCELLUS BCBS B [id number] S [id number] BS [place] Trad/MX Commercial [id number] Self [id number] [employer] Commercial Ppo Family Dependent Ppo MVP H [id number] Self [id number] [facility] O [id number] S [id number] [facility] [id number] SP [id number] MVP (pr) Commercial Family Dependent MVP Commercial Family Dependent [facility] PHY [id number] SP [id number] [employer] [facility] P [id number] P [id number] [facility] PHY [id number] [id number] Problems, Conditions, and Diagnoses Code Display Name Description Problem Type Effective Dates Data Source(s) C50.919 Malignant neoplasm of unspecified site o f unspecified female breast Malignant neoplasm of unspecified site of unspecified female breast Diagnosis 11/23/2019 03:12:00 PM [facility] Surgeries/Procedures Procedure Description Date Indications Data Source(s) Mammogram 04/13/2020 12:00:00 AM EST M EDENT ([facility]) Excision Of Cyst Fibroadenoma Or Other Benign Or Malignant T umor 11/17/2019 12:00:00 AM EDT [facility] ([facility] ) Results ID Date Data Source [id number] 06/06/2020 12:00:00 AM EST [facility] Name Value Range Interpretation Code Description Data Tania rce(s) Supporting Document(s) SARS coronavirus 2 Ag Negative [facility] This lab was ordered by [facility] and reported by [facility]. ID Date Data Source [id number] 06/01/2020 12:00:00 PM EST [facility] ([facility]) Name Value Range Interpretation Code Description Data Tania rce(s) Supporting Document(s) TP Reflex HPV ASCUS Laboratory test result [facility] ([facility]) TP Reflex HPV ASCUS Laboratory test result [facility] ([facility]) SPECIMEN PART------ A. Cervical, Endocervical, ThinPrep Pap (Taker Off Drying Kiln) CYTOLOGY HX-------- Other Information: Post-menopausal Previous Pap: 05/30/2019 NEGATIVE FINAL DIAGNOSIS---- INTERPRETATION: Negative for Intraepithelial Lesion or Malignancy. SPECIMEN ADEQUACY:Satisfactory for evaluation. Endocervical/transformation zone component cannot be determined due to the presence of atrophy. ADDITIONAL FINDINGS:Atrophic pattern. ID Date Data Source [id number] 05/24/2020 08:02:00 AM EST [facility] ([facility]) Name Value Range Interpretation Code Description Data Tania rce(s) Supporting Document(s) Glucose [Mass/volume] in Serum or Plasma 71 mg/dL 74-99 [facility] ([facility]) 100-125 mg/dL PRE-DIABETES/FASTING >126 mg/dL DIABETES/FASTING Creatinine 0.7 mg/dL 0.6-1.3 [facility] ([facility]) Urea nitrogen [Mass/volume] in Serum or Plasma 19 mg/dL 7-18 [facility] ([facility]) Potassium [Moles/volume] in Serum or Plasma 4.5 meq/L 3.5-5.1 [facility] ([facility]) Chloride [Moles/volume] in Serum or Plasma 103 meq/L 98-107 [facility] ([facility]) Sodium [Moles/volume] in Serum or Plasma 141 meq/L 136-145 [facility] ([facility]) Carbon dioxide, total [Moles/volume] in Serum or Plasma 33 meq/L 21 -32 [facility] ([facility]) Glomerular filtration rate/1.73 sq M pre dicted among non-blacks [Volume Rate/Area] in Serum or Plasma by Creatinine-based formula (MDRD) Laboratory test result [facility] Glomerular filtration rate/1.73 sq M pre dicted among blacks [Volume Rate/Area] in Serum or Plasma by Creatinine-based formula (MDRD) Laboratory test result [facility] ([facility]) <content>CHRONIC KIDNEY DISEASE STAGING PER NKF</content>
<content></content>
<content>STAGE I & II GFR >= 60 NORMAL TO MILDLY DECREASED</content>
<content>STAGE III GFR 30-59 MODERATELY DECREASED</content>
<content>STAGE IV GFR 15-29 SEVERELY DECREASED</content>
<content>STAGE V GFR <15 VERY LITTLE GFR LEFT</content>
<content>ESRD GFR <15 ON ALARM OPERATOR</content>
<content></content> Calcium [Mass/volume] in Serum or Plasma 9.3 mg/dL 8.5-10.1 [facility] ID Date Data Source [id number] 01/04/2020 09:00:00 AM EDT [facility] ([facility]) Name Value Range Interpretation Code Description Data Tania rce(s) Supporting Document(s) Blood Urea Nitrogen 17 mg/dL 7-18 [facility] ([facility]) Creatinine For GFR 0.61 mg/dL 0.55-1.30 [facility] ([facility]) Glucose, Fasting 90 mg/dL 70-100 [facility] ([facility]) Sodium Level 140 meq/L 136-145 [facility] ([facility]) Glomerular Filtration Rate Laboratory test result [facility] <content>Units are mL/min/1.73 m2</content>
<content></content>
<content>Chronic Kidney Disease Staging per NKF:</content>
<content></content>
<content>Stage I & II GFR >=60 Normal to Mildly Decreased</content>
<content>Stage III GFR 30- 59 Moderately Decreased</content>
<content>Stage IV GFR 15-29 Severely Decreased</content>
<content>Stage V GFR <15 Very Little GFR Left</content>
<content>ESRD GFR <15 on ALARM OPERATOR</content>
<content></content> Potassium Serum 4.1 meq/L 3.5-5.1 [facility] ([facility]) Anion Gap 2 meq/L 8-16 [facility] Chloride Level 105 meq/L 98-107 [facility] Carbon Dioxide Level 33 meq/L 21-32 [facility] Calcium Level 9.6 mg/dL 8.5-10.1 [facility] Alt/SGPT 29 U/L 12-78 [facility] ([facility] Ast/Sgot 21 U/L 7-37 [facility] ([facility] Albumin 3.9 GM/DL 3.2-5.2 [facility] ([facility] Alkaline Phosphatase 116 U/L 45-117 [facility] Total Protein 6.7 GM/DL 6.4-8.2 [facility] ([facility] Bilirubin,Total 0.6 mg/dL 0.2-1.0 [facility] ([facility]) Albumin/Globulin Ratio 1.4 1.2-2.2 [facility] ([facility]) ID Date Data Source [id number] 01/04/2020 09:00:00 AM EDT [facility] ([facility]) Name Value Range Interpretation Code Description Data Tania rce(s) Supporting Document(s) White Blood Count 5.9 10 4.0-10.0 [facility] ([facility]) Red Blood Count 4.54 10 4.00-5.40 [facility] ([facility]) Hematocrit 41.3 % 36.0-47.0 [facility] Hemoglobin 14.2 g/dL 12.0-15.5 [facility] ([facility]) Mean Corpuscular Hemoglobin 31.3 pg 27.0-33.0 [place] DENT ([facility]) Mean Corpuscular Volume 91.0 fl 80.0-96.0 [facility] ([facility]) Mean Corpuscular HGB Conc 34.4 g/dL 32.0-36.5 MEDE NT ([facility]) Red Cell Distribution Width 13.2 % 11.5-14.5 [place] [facility] ([facility]) Lymph % 33.7 % 24.0-44.0 [facility] Platelet Count, Automated 268 10 150-450 MEDE NT ([facility]) Neutrophils % 59.1 % 36.0-66.0 [facility] ([facility]) Baso % 0.8 % 0.0-1.0 [facility]) Ralls % 3.9 % 0.0-5.0 [facility] Eos % 2.2 % 0.0-3.0 [facility] Immature Granulocyte % 0.3 % 0-3.0 [facility] ([facility]) Nucleated Red Blood Cell % 0.0 % 0-0 [facility] ([facility]) Neutrophils # 3.5 10 1.5-8.5 [facility] ([facility]) Eos # 0.1 10 0.0-0.5 [facility] Lymph # 2.0 10 1.5-5.0 [facility] Ralls # 0.2 10 0.0-0.8 [facility] Baso # 0.1 10 0.0-0.2 [facility] ID Date Data Source [id number] 01/04/2020 09:00:00 AM EDT [facility] ([facility]) Name Value Range Interpretation Code Description Data Tania rce(s) Supporting Document(s) Prothrombin Time 13.1 s 11.8-14.0 [facility] ([facility]) Partial Thromboplastin Time 28.1 s 25.0-38.4 ME [facility] ([facility]) Inr 0.97 [facility]) THERAPUTIC HUMAN INR VALUES INDICATIONS NORMAL RANGES PROPHYLAXIS/TREATMENT OF: VENOUS THROMBOSIS 2.0-3.0 PULMONARY EMBOLISM 2.0-3.0 PREVENTION OF SYSTEMIC EMBOLISM FROM: TISSUE HEART VALVES 2.0-3.0 ACUTE MYOCARDIAL INFARCTION 2.0-3.0 VALVULAR HEART DISEASE 2.0-3.0 ATRIAL FIBRILLATION 2.0-3.0 MECHANICAL VALVES(HIGH RISK) 2.5-3.5 RECURRENT MYOCARDIAL INFARCTION 2.5-3.5 ID Date Data Source [id number] 12/02/2019 02:19:00 PM EDT [facility] ([facility], ) Name Value Range Interpretation Code Description Data [facility] [place]) Supporting Document(s) Surgical pathology study Laboratory test result [facility] ([facility], ) FINAL DIAGNOSIS A-Lymph node, left sentinel: One lymph node, negative for malignancy (0/1). B-Lymph node, nonsentinel left breast: Three lymph nodes, negative for malignancy (0/3). C-Left breast, posterior/inferior margin, re-excision: Breast tissue with previous procedure site changes including giant cell reaction, fat necrosis and inflammation. Skin with underlying subcutaneous hemorrhage, giant cell reaction, fat necrosis and inflammation. Negative for malignancy. 12/06/2019 - 1021 CLINICAL DIAGNOSIS Left breast CA 12/05/2019 - 0659 GROSS DIAGNOSIS A - Received fresh labeled "left sentinel lymph node" and consists of a lymph node 2.3 x 1.3 x 0.8 cm. The specimen is submitted all in frozen. Frozen section diagnosis is "negative for metastatic carcinoma". The frozen section diagnosis was read by Dr. Cueto to Dr. Tinoco. The specimen was received at 2:25 PM and reported at 2:40 PM. The remainder of the frozen section is submitted in one. -OA B - Received in formalin labeled "nonsentinel lymph node left breast" is a portion of fatty adipose tissue containing three lymph nodes measuring 0.4, 0.8 and 1.5 cm. The largest lymph node is bisected and entirely submitted in (B1) and the two smaller lymph nodes are submitted in (B2). C - Received in formalin labeled "posterior/inferior re-excision margin left breast" is an ovoid portion of previously inked specimen containing previous biopsy cavity measuring 6.5 x 2.7 x 2.8 cm. Serial sectioning of the specimen, from lateral to medial, revealed areas of yellow fat necrosis without discreet mass or lesions. Represented in (C1-C4) from lateral to medial. Also noted in the container is a skin ellipse with subcutaneous soft tissue measuring 4 x 1 x 2.5 cm. Sectioning revealed a focal hemorrhage and necrosis. Represented in (C5). -YZ 12/06/2019 - 1000 Signed ANASTASIA CUETO MD 12/06/2019 1022 ID Date Data Source [id number] 11/29/2019 11:20:00 AM EDT [facility] Name Value Range Interpretation Code Description Data Tania rce(s) Supporting Document(s) SARS coronavirus 2 RNA [facility] This lab was ordered by [facility] and reported by [facility]. ID Date Data Source [id number] 11/23/2019 03:13:00 PM EDT [facility] ([facility], ) Name Value Range Interpretation Code Description Data Tania rce(s) Supporting Document(s) Surgical Pathology Consult Laboratory test result [facility] ([facility], ) Surgical Pathology Report Name: MAME COMBS Collection Date: 11/23/2019 00:00 Received Date: 11/23/2019 15:14 Physician(s): ANTOINETTE TINOCO MD ZHANG, YILIN, MD, Specimen(s) Received A: Material received for consultation, GDLR Clinical History Left breast masses. Please see attached MRI report. 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 Please do ER, AK, and Her 2 on both blocks 2+ reflex to FISH. Diagnosis BREAST, LEFT, AREA OF CALCIFICATION, EXCISION ([id number], SLIDE D2; 11/18/19): INVASIVE DUCTAL CARCINOMA. GRADE: 2 VASCULAR INVASION: Absent DCIS: Present, high grade. CALCIFICATIONS: Absent ESTROGEN RECEPTORS: Positive (strong,100 %). PROGESTERONE RECEPTORS: Positive (moderate to weak, 60%). 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 GRADE: 2 VASCULAR INVASION: Absent DCIS: Present, high grade. CALCIFICATIONS: Absent ESTROGEN RECEPTORS: Positive (strong,100 %). PROGESTERONE RECEPTORS: Positive (moderate, 80%). HER2: Negative (0) Electronically Signed By Giovani Nielson M.D., Attending Pathologist 11/24/2019 16:39:34 Gross Description Received from [facility] in [place], [place] are 2 H and E stained slides and 2 paraffin blocks labeled [id number] with the corresponding pathology report. Also received is an MRI report. /jrs Microscopic Description I completely agree with your diagnosis of invasive ductal carcinoma and intracystic papillary carcinoma or encapsulated papillary carcinoma. Slide A3 show mainly a large, well circumscribed, expansile papillary carcinoma with an adjacent focus of invasive ductal carcinoma identical to the tumor seen in part D. There is also very scant high grade DCIS present. These features are those an encapsulated papillary carcinoma, also known as intracystic papillary carcinoma. Whether these tumors are invasive or situ is matter of debate, but they often lack a complete myoepithelial layer around them and are associated with excellent prognosis. In this case, however, there is also a focus of conventional invasive ductal carcinoma next to it and within another nodule in the same breast (part D). Part D shows invasive ductal carcinoma and foci of high grade DCIS. Additional immunohistochemistry performed in our lab using a multiple p63/myosin stain in both samples show a lack of a myoepithelial layer in both papillary and nonpapillary tumors. While both tumors have been transected, I cannot comment on the margin status because of limited focus of this consultation. Thank you letting me see this case in consultation. This report may include one or more immunohistochemical stain results that use analyte specific reagents. All positive and negative controls have been reviewed by the attending pathologist and are satisfactory. The tests were developed and their performance characteristics determined by [facility] Pathology department. They have not been cleared or approved by the US Food and Drug Administration. The FDA has determined that such clearance or approval is not necessary. ID Date Data Source [id number] 11/24/2019 04:39:00 PM [facility] Surgical Pathology ReportName: Zack COMBS JUANIKENNEDYRN: [id number] Number: [id number] Date: 11/23/2019 00:00Received Date: 11/23/2019 15:14Physician(s): ANTOINETTE TINOCO MD ZHANG, YILIN, MD,MDSpecimen(s) ReceivedA: Material received for consultation, GDLRClinical HistoryLeft breast masses. Please see attached MRI report. 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 Please doER, AK, and Her 2 on both blocks 2+ reflex to FISH.DiagnosisBREAST, LEFT, AREA OF CALCIFICATION, EXCISION ([id number], SLIDE D2;11/18/19): INVASIVE DUCTAL CARCINOMA.GRADE: 2VASCULAR INVASION: AbsentDCIS: Present, high grade. CALCIFICATIONS: AbsentESTROGEN RECEPTORS: Positive (strong,100 %).PROGESTERONE RECEPTORS: Positive (moderate to weak, 60%).HER2: Negative (0) BREAST, LEFT, LUMPECTOMY ([id number], SLIDE A3; 11/18/19): ENCAPSULATEDPAPILLARY CARCINOMA WITH ADJACENT FOCUS OF INVASIVE DUCTAL CARCINOMA.GRADE: 2VASCULAR INVASION: AbsentDCIS: Present, high grade. CALCIFICATIONS: AbsentESTROGEN RECEPTORS: Positive (strong,100 %).PROGESTERONE RECEPTORS: Positive (moderate, 80%).HER2: Negative (0) Electronically Signed By Giovani Nielson M.D., Attending Pathologist11/24/2019 16:39:[address] [place] [place] are 2 H and Estained slides and 2 paraffin blocks labeled [id number] with thecorresponding pathology report. Also received is an MRI report./jrsMicroscopic DescriptionI completely agree with your diagnosis of invasive ductal carcinoma andintracystic papillary carcinoma or encapsulated papillary carcinoma. Slide A3 show mainly a large, well circumscribed, expansile papillarycarcinoma with an adjacent focus of invasive ductal carcinoma identical tothe tumor seen in part D. There is also very scant high grade DCISpresent. These features are those an encapsulated papillary carcinoma,also known as intracystic papillary carcinoma. Whether these tumors areinvasive or situ is matter of debate, but they often lack a completemyoepithelial layer around them and are associated with excellentprognosis. In this case, however, there is also a focus of conventionalinvasive ductal carcinoma next to it and within another nodule in the samebreast (part D). Part D shows invasive ductal carcinoma and foci of highgrade DCIS. Additional immunohistochemistry performed in our lab using amultiple p63/myosin stain in both samples show a lack of a myoepitheliallayer in both papillary and nonpapillary tumors. While both tumors havebeen transected, I cannot comment on the margin status because of limitedfocus of this consultation. Thank you letting me see this case inconsultation. This report may include one or more immunohistochemical stain results thatuse analyte specific reagents. All positive and negative controls havebeen reviewed by the attending pathologist and are satisfactory. The testswere developed and their performance characteristics determined by [facility] Pathology department. They have not been cleared or approved by the USFood and Drug Administration. The FDA has determined that such clearanceor approval is not necessary. Name Value Range Interpretation Code Description Data Tania rce(s) Supporting Document(s) ID Date Data Source [id number] 11/19/2019 08:41:00 PM EDT [facility] ([facility]) Name Value Range Interpretation Code Description Data Tania rce(s) Supporting Document(s) Laboratory test finding (navigational concept) 38.0 % 38.0-51.0 [facility] ([facility]) Laboratory test finding (navigational concept) 139 meq/L 136-145 [facility] ([facility]) Laboratory test finding (navigational concept) 122 mg/dL 70-105 [facility] ([facility]) Laboratory test finding (navigational concept) 3.6 meq/L 3.5-5.1 [facility] ([facility]) Laboratory test finding (navigational concept) 101 meq/L 98-109 [facility] ([facility]) Laboratory test finding (navigational concept) 4.7 mg/dL 4.5-5.3 [facility] ([facility]) Laboratory test finding (navigational concept) 21 mg/dL 8-26 [facility] ([facility]) Laboratory test finding (navigational concept) 0.7 mg/dL 0.6-1.3 [facility] ([facility]) Laboratory test finding (navigational concept) 26.0 MM/L 23.0-27.0 [facility] ([facility]) ID Date Data Source [id number] 11/19/2019 07:49:00 PM EDT [facility] ([facility]) Name Value Range Interpretation Code Description Data Tania rce(s) Supporting Document(s) Hemoglobin 13.9 g/dL 12.0-15.5 [facility] White Blood Count 8.6 10 4.0-10.0 [facility] ([facility]) Red Blood Count 4.40 10 4.00-5.40 [facility] ([facility]) Mean Corpuscular Hemoglobin 31.6 pg 27.0-33.0 MI [facility] ([facility]) Mean Corpuscular Volume 91.4 fl 80.0-96.0 [facility] ([facility]) Hematocrit 40.2 % 36.0-47.0 [facility] Neutrophils % 68.6 % 36.0-66.0 [facility] ([facility]) Mean Corpuscular HGB Conc 34.6 g/dL 32.0-36.5 MEDE NT ([facility]) Red Cell Distribution Width 13.7 % 11.5-14.5 [facility] ([facility]) Platelet Count, Automated 324 10 150-450 [facility] ([facility]) Ralls % 3.5 % 0.0-5.0 [facility] Eos % 1.2 % 0.0-3.0 [facility] Lymph % 26.0 % 24.0-44.0 [facility] Neutrophils # 5.9 10 1.5-8.5 [facility] ([facility]) Immature Granulocyte % 0.2 % 0-3.0 [facility] ([facility]) Nucleated Red Blood Cell % 0.0 % 0-0 [facility] ([facility]) Baso % 0.5 % 0.0-1.0 [facility] Ralls # 0.3 10 0.0-0.8 [facility] Lymph # 2.2 10 1.5-5.0 [facility] Eos # 0.1 10 0.0-0.5 [facility] Baso # 0.0 10 0.0-0.2 [facility] ID Date Data Source [id number] 11/19/2019 07:49:00 PM EDT [facility] ([facility]) Name Value Range Interpretation Code Description Data Tania rce(s) Supporting Document(s) Alt/SGPT 25 U/L 12-78 [facility]) Alkaline Phosphatase 99 U/L 45-117 [facility] ([facility]) Ast/Sgot 22 U/L 7-37 [facility]) Bilirubin,Total 0.3 mg/dL 0.2-1.0 [facility] ([facility]) Bilirubin,Direct Laboratory test result 0.0-0.2 [facility] ([facility]) Total Protein 7.1 GM/DL 6.4-8.2 [facility] ([facility]) Albumin 4.1 GM/DL 3.2-5.2 [facility]) Albumin/Globulin Ratio 1.4 1.2-2.2 [facility] ([facility]) ID Date Data Source [id number] 11/19/2019 07:49:00 PM EDT [facility] ([facility]) Name Value Range Interpretation Code Description Data Tania rce(s) Supporting Document(s) Glucose, Fasting 102 mg/dL 70-100 [facility] ([facility]) Creatinine For GFR 0.73 mg/dL 0.55-1.30 [facility] ([facility]) Blood Urea Nitrogen 21 mg/dL 7-18 [facility] ([facility]) Potassium Serum 3.6 meq/L 3.5-5.1 [facility] ([facility]) Sodium Level 138 meq/L 136-145 [facility] ([facility]) Glomerular Filtration Rate Laboratory test result [facility] ([facility]) <content>Units are mL/min/1.73 m2</content>
<content></content>
<content>Chronic Kidney Disease Staging per NKF:</content>
<content></content>
<content>Stage I & II GFR >=60 Normal to Mildly Decreased</content>
<content>Stage III GFR 30- 59 Moderately Decreased</content>
<content>Stage IV GFR 15-29 Severely Decreased</content>
<content>Stage V GFR <15 Very Little GFR Left</content>
<content>ESRD GFR <15 on ALARM OPERATOR</content>
<content></content> Calcium Level 9.1 mg/dL 8.5-10.1 [facility] ([facility]) Chloride Level 104 meq/L 98-107 [facility] ([facility]) Carbon Dioxide Level 28 meq/L 21-32 [facility] ([facility]) Anion Gap 6 meq/L 8-16 [facility]) ID Date Data Source [id number] 11/19/2019 07:49:00 PM EDT [facility] ([facility]) Name Value Range Interpretation Code Description Data Tania rce(s) Supporting Document(s) Lipoprotein lipase [Enzymatic activity/volume] in Serum or P lasma 119 U/L 73-393 [facility] ([facility]) ID Date Data Source [id number] 11/19/2019 07:49:00 PM EDT [facility] ([facility]) Name Value Range Interpretation Code Description Data Tania rce(s) Supporting Document(s) Prothrombin Time 12.8 s 11.8-14.0 [facility] ([facility]) Inr 0.99 [facility]) THERAPUTIC HUMAN INR VALUES INDICATIONS NORMAL RANGES PROPHYLAXIS/TREATMENT OF: VENOUS THROMBOSIS 2.0-3.0 PULMONARY EMBOLISM 2.0-3.0 PREVENTION OF SYSTEMIC EMBOLISM FROM: TISSUE HEART VALVES 2.0-3.0 ACUTE MYOCARDIAL INFARCTION 2.0-3.0 VALVULAR HEART DISEASE 2.0-3.0 ATRIAL FIBRILLATION 2.0-3.0 MECHANICAL VALVES(HIGH RISK) 2.5-3.5 RECURRENT MYOCARDIAL INFARCTION 2.5-3.5 ID Date Data Source [id number] 11/19/2019 07:49:00 PM EDT [facility] ([facility]) Name Value Range Interpretation Code Description Data Tania rce(s) Supporting Document(s) Appearance, Urine Manual RFX Laboratory test result [facility] ([facility]) SP [place],Urine Manual Reflex 1.030 1.002-1.035 [facility] ([facility]) Color, Urine Manual Reflex Laboratory test result [facility] ([facility]) PH,Urine Man Reflex 5.0 units 5.0-7.0 [facility] ([facility]) Glucose, Urine (Ua) Manual Laboratory test result [facility] ([facility]) Protein, Urine Manual Reflex Laboratory test result [facility] ([facility]) Urobilinogen, Urine Manual Laboratory test result [facility] ([facility]) Ketone, Urine Manual Laboratory test result [facility] ([facility]) Nitrite, Urine Manual RFX Laboratory test result [facility] ([facility]) Bilirubin, Urine Manual Laboratory test result [facility] ([facility]) Leukocyte Esterase, Ur Man RFX Laboratory test result [facility] ([facility]) Blood Urine Manual RFX Laboratory test result [facility] ([facility]) ID Date Data Source [id number] 11/19/2019 07:49:00 PM EDT [facility] ([facility]) Name Value Range Interpretation Code Description Data Tania rce(s) Supporting Document(s) WBC, Urine Man RFX Laboratory test result 0-3 [facility] ([facility]) RBC, Urine Laboratory test result 0-3 [facility] ([facility]) Squamous Epithelial Cell Urine Laboratory test result [facility] Hyaline Cast, Urine Laboratory test result 0-1 [facility] Bacteria, Urine Laboratory [facility] Microscopic Exam Laboratory test result [facility] ID Date Data Source [id number] 11/19/2019 07:49:00 PM EDT [facility]) Name Value Range Interpretation Code Description Data [facility](s) Supporting Document(s) CPK Creatine Phosphokinase 186 U/L 26-192 [facility] CK-MB Value Mass 4.8 ng/mL [facility] MB/CK Relative Index 2.58 [facility] <content>DIAGNOSIS CRITERIA</content>
<content>MMB ng/ml Relative Index (RI)</content>
<content>NON-AMI < or = 5 N/A</content>
<content>AVILA ZONE > 5 < or = 4</content>
<content>AMI > 5 > 4</content>
<content></content> Troponin I Laboratory test result [facility] ([facility]) <content>Troponin I Reference Interval f or Siemens [place] LOCI:</content>
<content></content>
<content>99th Percentile= 0.00-0.045 ng/ml</content>
<content></content>
<content>Risk Stratification:</content>
<content><= 0.10 ng/ml Decreased Risk for Adverse Clinical</content>
<content>Events.</content>
<content>0.10-1.50 ng/ml Increased Risk for Adverse Clinical</content>
<content>Events. Evaluation of additional</content>
<content>criterion and/or repeat testing in 2-6</content>
<content>hours is suggested to rule out myocardial</content>
<content>damage.</content>
<content>>= 1.50 ng/ml Indicative of Myocardial Injury.</content>
<content></content> ID Date Data Source [id number] 11/19/2019 07:49:00 PM EDT [facility] Name Value Range Interpretation Code Description Data Tania rce(s) Supporting Document(s) Amylase [Enzymatic activity/volume] in Serum or Plasma 60 U/L 25- 115 [facility] ([facility]) ID Date Data Source [id number] 11/19/2019 07:49:00 PM EDT [facility] Name Value Range Interpretation Code Description Data Tania rce(s) Supporting Document(s) Reflex Urine Culture Laboratory test result [facility]) FULL REPORT IN LAB NOTES ([facility] and [facility] ). SPECIMEN APPEARS CONTAMINATED ID Date Data Source [id number] 11/18/2019 08:24:00 AM EDT [facility] Name Value Range Interpretation Code Description Data Tania rce(s) Supporting Document(s) Cobalamin (Vitamin B12) [Mass/volume] in Serum or Plasma Lab oratory test result [id number] [facility]) VITAMIN B12 NORMAL RANGE NORMAL 247 - 911 PG/ML INDETERMINATE 211 - 246 PG/ML DEFICIENT LESS THAN 211 PG/ML ID Date Data Source [id number] 11/18/2019 08:22:00 AM EDT [facility] Name Value Range Interpretation Code Description Data Tania rce(s) Supporting Document(s) Thyrotropin [Units/volume] in Serum or Plasma by Detec tion limit <= 0.05 mIU/L 0.93 uIU/mL 0.36-3.74 [facility] ([facility] ) ID Date Data Source [id number] 11/18/2019 08:22:00 AM EDT [facility] Name Value Range Interpretation Code Description Data Tania rce(s) Supporting Document(s) Cholesterol [Mass/volume] in Serum or Plasma 213 mg/dL 131-200 [facility] ([facility]) Cholesterol in HDL [Mass/volume] in Serum or Plasma 80 mg/dL 35-60 [facility] ([facility]) Triglyceride [Mass/volume] in Serum or Plasma 46 mg/dL 30-150 [facility] ([facility]) Cholesterol in LDL [Mass/volume] in Serum or Plasma by calcu lation 124 CALC 50-159 [facility] ([facility]) ID Date Data Source [id number] 11/18/2019 08:22:00 AM EDT [facility] ([facility]) Name Value Range Interpretation Code Description Data Tania rce(s) Supporting Document(s) Creatinine 0.7 mg/dL 0.6-1.3 [facility] Urea nitrogen [Mass/volume] in Serum or Plasma 15 mg/dL 7-18 [facility] ([facility]) Glucose [Mass/volume] in Serum or Plasma 94 mg/dL 74-99 [facility] ([facility]) 100-125 mg/dL PRE-DIABETES/FASTING >126 mg/dL DIABETES/FASTING Carbon dioxide, total [Moles/volume] in Serum or Plasma 30 meq/L 21 -32 [facility] ([facility]) Potassium [Moles/volume] in Serum or Plasma 4.6 meq/L 3.5-5.1 [facility] ([facility]) Chloride [Moles/volume] in Serum or Plasma 105 meq/L 98-107 [facility] ([facility]) Sodium [Moles/volume] in Serum or Plasma 141 meq/L 136-145 [facility] ([facility]) Total Bilirubin 0.4 mg/dL 0.2-1.0 [facility] ([facility]) Calcium [Mass/volume] in Serum or Plasma 9.0 mg/dL 8.5-10.1 [facility] ([facility]) Alkaline phosphatase isoenzyme [Units/volume] in Serum or Pl asma 97 mg/dL 46-116 [facility] ([facility]) Aspartate aminotransferase [Enzymatic activity/volume] in Serum or Plasma 14 U/L 15-37 [facility] ([facility] ) Albumin [Mass/volume] in Serum or Plasma 3.6 g/dL 3.4-5.0 [facility] Alanine aminotransferase [Enzymatic activity/volume] in Seru m or Plasma 24 U/L 12-78 [facility] Proteinase 3 Ab [Units/volume] in Serum 6.3 g/dL 6.4-8.2 [facility] A/G Ratio 1.33 CALC 1.00-1.90 [facility] [facility] Glomerular filtration rate/1.73 sq M pre dicted among non-blacks [Volume Rate/Area] in Serum or Plasma by Creatinine-based formula (MDRD) Laboratory test result [facility] Glomerular filtration rate/1.73 sq M pre dicted among blacks [Volume Rate/Area] in Serum or Plasma by Creatinine-based formula (MDRD) Laboratory test result [facility] <content>CHRONIC KIDNEY DISEASE STAGING PER NKF</content>
<content></content>
<content>STAGE I & II GFR >= 60 NORMAL TO MILDLY DECREASED</content>
<content>STAGE III GFR 30-59 MODERATELY DECREASED</content>
<content>STAGE IV GFR 15-29 SEVERELY DECREASED</content>
<content>STAGE V GFR <15 VERY LITTLE GFR LEFT</content>
<content>ESRD GFR <15 ON ALARM OPERATOR</content>
<content></content> ID Date Data Source [id number] 11/18/2019 08:22:00 AM EDT [facility] ([facility]) Name Value Range Interpretation Code Description Data Tania rce(s) Supporting Document(s) Leukocytes [#/volume] in Blood by Automated count 8.1 x10*3/UL 4.1-10 .9 [facility] ([facility]) Hemoglobin [Mass/volume] in Blood 13.8 g/dL 12.0-18.0 [facility] Erythrocytes [#/volume] in Blood by Automated count 4.42 x10*6/UL 4.2 0-6.30 [facility] ([facility]) Hematocrit [Volume Fraction] of Blood by Automated count 39.4 % 3 7.0-51.0 [facility] ([facility]) MCV 89.2 fL 80.0-97.0 [facility] ([facility]) MCHC 35.0 g/dL 31.0-38.0 [facility] ([facility]) MCH 31.2 pg 26.0-32.0 [facility] ([facility]) Platelets [#/volume] in Blood by Automated count 302 x10*3/UL 140-440 [facility] ([facility]) Erythrocyte distribution width [Ratio] by Automated count 13.2 % 11.6-13.7 [facility] ([facility]) MPV 9.5 FL 7.8-11.0 [facility] ([facility]) Lymph % 17.9 % 10.0-58.5 [facility] ([facility]) Lymph # 1.4 x10*3/UL 0.6-4.1 [facility] ([facility]) Neut % 76.2 % 37.0-92.0 [facility] ([facility]) Mid % 5.9 % 1.7-9.3 [facility] ([facility]) Neut # 6.1 x10*3/UL 2.0-7.8 [facility] ([facility]) Mid # 0.6 x10*3/UL 0.1-0.6 [facility] ([facility]) ID Date Data Source [id number] 11/17/2019 05:18:00 PM EDT [facility] ([facility], ) Name Value Range Interpretation Code Description Data Tania rce(s) Supporting Document(s) Surgical pathology study Laboratory test result [facility] ([facility], ) <content>Addendum 2 Entered: 11/28/2019 - 1016</content>
<content></content>
<content></content>
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
<content>high grade DCIS:</content>
<content>ER: positive (100%).</content>
<content>AK: Positive (80%).</content>
<content>Her2: Negative (0).</content>
<content></content>
<content>Specimen D - Area of calcification, excision: Invasive ductal</content>
<content>carcinoma, grade 2, and high grade DCIS:</content>
<content>ER: Positive (100%).</content>
<content>AK: Positive (60%).</content>
<content>HER2: Negative (0).</content>
<content></content>
<content>Please see complete report [id number] from [facility].</content>
<content>Report amended to correct typo in AK percentage in part D.</content>
<content>11/28/2019 - 1016</content>
<content>Addendum Signed____ Celina Langston MD 11/28/2019 1016</content>
<content> </content>
<content>Addendum 1 Entered: 11/28/2019-0845</content>
<content></content>
<content>Papillary carcinoma:</content>
<content>ER: positive (100%).</content>
<content>AK: Positive (80%).</content>
<content>Her2: Negative (0).</content>
<content></content>
<content>Adjacent invasive ductal carcinoma:</content>
<content>ER: Positive (100%).</content>
<content>AK: Positive 0%).</content>
<content>HER2: Negative (0).</content>
<content></content>
<content>See [facility] report [id number].</content>
<content></content>
<content>11/28/2019 - 0845</content>
<content>Addendum Signed____ Zulma Diaz M.D. 11/28/201945</content>
<content> </content>
<content> </content>
<content></content>
<content>FINAL DIAGNOSIS</content>
<content></content>
<content>A - Left breast mass, lumpectomy:</content>
<content>Intraductal cystic papillary carcinoma, grade 2 (of 3). -4/TR</content>
<content>The tumor measures 3 cm in largest dimension and focally extends to</content>
<content>inferior-posterior shannan in.</content>
<content></content>
<content>B - Nodule, adjacent to the main mass, excision:</content>
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
<content>necrosis, nuclear grade 2- 3.</content>
<content>Small foci of invasive ductal carcinoma are also noted, nuclear</content>
<content>grade 2-3. -4/tr</content>
<content></content>
<content>C - Breast tissue, superior margin, additional excision:</content>
<content>Foci of invasive ductal carcinoma, as well as ductal carcinoma in-situ,</content>
<content>nuclear grade 2-3, inked margins of re-excision are negative. See note.</content>
<content></content>
<content>D - Lesion, area of calcification, excision:</content>
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
<content>2-3, involving the entire biopsied specimen (1.5 cm maximum). See</content>
<content>note.</content>
<content> </content>
<content>Note: The tumor cells in specimen B, C and D are morphologically</content>
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
<content>specimen A, likely represent two different primaries. Both Specimen A</content>
<content>and D were submitted for ER, AK and HER2 stains at [facility]</content>
<content>Hale and an addendum report will follow.</content>
<content></content>
<content>11/21/2019 - 1414</content>
<content></content>
<content>CLINICAL DIAGNOSIS</content>
<content></content>
<content>Left breast mass</content>
<content>11/18/2019 - 1140</content>
<content></content>
<content>GROSS DIAGNOSIS</content>
<content></content>
<content>A - Received in formalin labeled "left breast mass" is a portion of</content>
<content>breast tissue including overlying skin with previous inking measuring</content>
<content>approximately 6 x 5 x 3.5 cm. The skin ellipse measures 3.5 x 1 cm.</content>
<content>Serial section from lateral to medial reveals a necrotic soft tissue</content>
<content>mass occupying the entire medial half of the specimen measuring</content>
<content>approximately 3 x 2.5 x 2.3 cm. The mass gross extends to the black</content>
<content>inked deep margin and focally green inked inferior and yellow inked</content>
<content>medial margin. The skin and subcutaneous soft tissue as well as the</content>
<content>lateral half of the specimen appears to be uninvolved. The medial</content>
<content>margin is submitted in (A1) and the mass with the closest green and</content>
<content>black margin is submitted in (A2). A section of the blue and black</content>
<content>margin is submitted in (A3). Random sections of the lateral portion of</content>
<content>the breast tissue and lateral margin is submitted in (A4) and</content>
<content>loan representative section of skin is submitted in (A5).</content>
<content></content>
<content>B - Received in formalin labeled "adjacent nodule" is a portion of</content>
<content>yellow-delgado soft tissue measuring 2 x 1.1 x 0.7 cm. Serial sectioned all</content>
<content>in (B1 & B2).</content>
<content></content>
<content>C - Received in formalin labeled "superior margin 8 x 3 x 2 cm." is a</content>
<content>portion of previously inked fatty soft tissue measuring approximately</content>
<content>7.5 x 3.5 x 1.8 cm. The specimen is serial sectioned at the 2-3 mm.</content>
<content> interval revealing a mostly yellow fatty cut surface without discrete</content>
<content>mass or lesion. Represented from medial to lateral in (C1-C6).</content>
<content></content>
<content>D - Received in formalin labeled "area of calcification" is an ovoid</content>
<content>portion of fibrofatty soft tissue measuring 1.5 x 1.2 x 0.6 cm.</content>
<content>Sectioning revealed a delgado soft tissue nodule involving most of the</content>
<content>specimen. All in (D1 & D2).</content>
<content>-JuliaZ</content>
<content>11/21/2019 - 1023</content>
<content></content>
<content>Signed Zulma Diaz M.D. 11/21/2019 1414</content>
<content></content> ID Date Data Source [id number] 11/14/2019 12:05:00 PM EDT [facility] Name Value Range Interpretation Code Description Data Tania rce(s) Supporting Document(s) SARS CORONAVIRUS 2 RNA [facility] This lab was ordered by [facility] and reported by [facility]. ID Date Data Source [id number] 05/16/2019 07:55:00 AM EST [facility] ([facility]) Name Value Range Interpretation Code Description Data Tania rce(s) Supporting Document(s) Thyroxine (T4) free [Mass/volume] in Serum or Plasma 0.94 ng/dL 0.76- 1.46 [facility] ([facility]) ID Date Data Source [id number] 05/16/2019 07:55:00 AM EST [facility] ([facility] Name Value Range Interpretation Code Description Data Tania rce(s) Supporting Document(s) Thyrotropin [Units/volume] in Serum or Plasma by Detec tion limit <= 0.05 mIU/L 2.34 uIU/mL 0.36-3.74 [facility] ([facility] ) ID Date Data Source [id number] 05/16/2019 07:55:00 AM EST [facility] ([facility]) Name Value Range Interpretation Code Description Data Tania rce(s) Supporting Document(s) Urea nitrogen [Mass/volume] in Serum or Plasma 19 mg/dL 7-18 [facility] ([facility]) Glucose [Mass/volume] in Serum or Plasma 89 mg/dL 74-99 [facility] ([facility]) 100-125 mg/dL PRE-DIABETES/FASTING >126 mg/dL DIABETES/FASTING Sodium [Moles/volume] in Serum or Plasma 143 meq/L 136-145 [facility] ([facility]) Creatinine 0.7 mg/dL 0.6-1.3 [facility] ([facility]) Potassium [Moles/volume] in Serum or Plasma 4.2 meq/L 3.5-5.1 [facility] ([facility]) Chloride [Moles/volume] in Serum or Plasma 105 meq/L 98-107 [facility] ([facility]) Carbon dioxide, total [Moles/volume] in Serum or Plasma 28 meq/L 21 -32 [facility] ([facility]) Glomerular filtration rate/1.73 sq M pre dicted among non-blacks [Volume Rate/Area] in Serum or Plasma by Creatinine-based formula (MDRD) >= 60 mL/min [facility] ([facility]) Calcium [Mass/volume] in Serum or Plasma 9.3 mg/dL 8.5-10.1 [facility] ([facility]) Glomerular filtration rate/1.73 sq M pre dicted among blacks [Volume Rate/Area] in Serum or Plasma by Creatinine-based formula (MDRD) >= 60 mL/min [facility] ([facility]) <content>CHRONIC KIDNEY DISEASE STAGING PER NKF</content>
<content></content>
<content>STAGE I & II GFR >= 60 NORMAL TO MILDLY DECREASED</content>
<content>STAGE III GFR 30-59 MODERATELY DECREASED</content>
<content>STAGE IV GFR 15-29 SEVERELY DECREASED</content>
<content>STAGE V GFR <15 VERY LITTLE GFR LEFT</content>
<content>ESRD GFR <15 ON ALARM OPERATOR</content>
<content></content> Procedure Social History Code Duration Value Status Description Data Source(s ) Smoking 06/06/2020 12:00:00 AM EST Patient has never smoked co mpleted Patient has never smoked [facility] ([facility]) Smoking 06/01/2020 12:00:00 AM EST Patient has never smoked co mpleted Patient has never smoked [facility] ([facility] [employer] [facility]) Vital Signs ID Date Data Source UNK Name Value Range Interpretation Code Description Data Source(s) Body mass index (BMI) [Ratio] 36.4 kg/m2 36.4 k g/m2 [facility] ([facility], [facility]) Body height 59 [in_i] 59 [in_i] [facility] ([facility]) 4'11" Body weight 180.00 [lb_av] 180.00 [lb_av] [facility] T ([facility], [facility]) Body temperature 98.0 [degF] 98.0 [degF] [facility] ([facility], [facility]) Oxygen saturation in Arterial blood by Pulse oximetry 96 % 96 % [facility]) Respiratory rate 18 /min 18 /min [facility] ( [facility]) Heart rate 86 /min 86 /min [facility] ([facility], [facility]) Diastolic blood pressure 90 mm[Hg] 90 mm[Hg] [facility] ([facility]) Systolic blood pressure 154 mm[Hg] 154 mm[Hg] M [facility] ([facility], [facility]) Body surface area Derived from formula 1.78 m2 1.78 m2 [facility] ([facility]) Body mass index (BMI) [Ratio] 36.4 kg/m2 36.4 k g/m2 [facility] ([facility]) Body weight 182.00 [lb_av] 182.00 [lb_av] [facility] ([facility]) Body height 59.25 [in_i] 59.25 [in_i] [facility] ([facility]) ." Diastolic blood pressure 86 mm[Hg] 86 mm[Hg] [facility] ([facility]) Systolic blood pressure 140 mm[Hg] 140 mm[Hg] M [facility] ([facility] [facility]) Body mass index (BMI) [Ratio] 36.0 kg/m2 36.0 k g/m2 [facility] ([facility]) Body weight 183.00 [lb_av] 183.00 [lb_av] [facility] ([facility]) Body height 59.75 [in_i] 59.75 [in_i] [facility] ([facility] ." Heart rate 100 /min 100 /min [facility] ([facility]) Diastolic blood pressure 74 mm[Hg] 74 mm[Hg] [facility] ([facility]) RT Arm Systolic blood pressure 112 mm[Hg] 112 mm[Hg] [facility] RT Arm Body weight 81.194 kg 81.194 kg [facility] ([facility]) Body mass index (BMI) [Ratio] 35.0 kg/m2 35.0 k g/m2 [facility] ([facility]) Body weight 179.00 [lb_av] 179.00 [lb_av] [facility] ([facility]) Body height 60 [in_i] 60 [in_i] [facility] ([facility]) 5'0" Diastolic blood pressure 70 mm[Hg] 70 mm[Hg] [facility] ([facility]) Systolic blood pressure 110 mm[Hg] 110 mm[Hg] [facility] Body weight 80.741 kg 80.741 kg [facility] ([facility]) Body mass index (BMI) [Ratio] 34.8 kg/m2 34.8 k g/m2 [facility] ([facility]) Body weight 178.00 [lb_av] 178.00 [lb_av] [facility] Body height 60 [in_i] 60 [in_i] [facility] ([facility]) 5'0" Diastolic blood pressure 60 mm[Hg] 60 mm[Hg] [facility] ([facility]) Systolic blood pressure 130 mm[Hg] 130 mm[Hg] [facility] ([facility]) Body weight 80.287 kg 80.287 kg [facility] ([facility]) Body mass index (BMI) [Ratio] 34.6 kg/m2 34.6 k g/m2 [facility] ([facility]) Body weight 177.00 [lb_av] 177.00 [lb_av] [facility] ([facility]) Body height 60 [in_i] 60 [in_i] [facility] ([facility]) 5'0" Diastolic blood pressure 98 mm[Hg] 98 mm[Hg] [facility] ([facility]) Systolic blood pressure 152 mm[Hg] 152 mm[Hg] [facility] ([facility]) Body mass index (BMI) [Ratio] 35.2 kg/m2 35.2 k g/m2 [facility] ([facility]) Oxygen saturation in Arterial blood by Pulse oximetry 97 % 97 % [facility] ([facility]) Air Body weight 179.00 [lb_av] 179.00 [lb_av] [facility] ([facility]) Body height 59.75 [in_i] 59.75 [in_i] [facility] ([facility]) 4'11.75" Heart rate 71 /min 71 /min [facility] ([facility]) Diastolic blood pressure 80 mm[Hg] 80 mm[Hg] [facility] ([facility]) Systolic blood pressure 130 mm[Hg] 130 mm[Hg] [facility] ([facility]) Body weight 82.215 kg 82.215 kg [facility] ([facility]) Body mass index (BMI) [Ratio] 35.4 kg/m2 35.4 k g/m2 [facility] ([facility]) Body weight 181.25 [lb_av] 181.25 [lb_av] [facility] ([facility]) Body height 60 [in_i] 60 [in_i] [facility] ([facility]) 5'0" Diastolic blood pressure 66 mm[Hg] 66 mm[Hg] [facility] ([facility]) Systolic blood pressure 120 mm[Hg] 120 mm[Hg] [facility] ([facility]) Body weight 80.741 kg 80.741 kg [facility] ([facility]) Body mass index (BMI) [Ratio] 34.8 kg/m2 34.8 k g/m2 [facility] ([facility]) Body weight 178.00 [lb_av] 178.00 [lb_av] [facility] ([facility]) Body height 60 [in_i] 60 [in_i] [facility] ([facility]) 5'0" Diastolic blood pressure 80 mm[Hg] 80 mm[Hg] [facility] ([facility]) Systolic blood pressure 140 mm[Hg] 140 mm[Hg] [facility] ([facility]) Body weight 81.308 kg 81.308 kg [facility] ([facility]) Body mass index (BMI) [Ratio] 35.0 kg/m2 35.0 k g/m2 [facility] ([facility]) Body weight 179.25 [lb_av] 179.25 [lb_av] [facility] ([facility]) Body height 60 [in_i] 60 [in_i] [facility] ([facility]) 5'0" Body temperature 97.9 [degF] 97.9 [degF] [facility] ([facility]) Diastolic blood pressure 70 mm[Hg] 70 mm[Hg] [facility] ([facility]) Systolic blood pressure 122 mm[Hg] 122 mm[Hg] [facility] ([facility]) Body weight 83.236 kg 83.236 kg [facility] ([facility]) Body mass index (BMI) [Ratio] 35.8 kg/m2 35.8 k g/m2 [facility] ([facility]) Body weight 183.50 [lb_av] 183.50 [lb_av] [facility] ([facility]) Body height 60 [in_i] 60 [in_i] [facility] ([facility]) 5'0" Diastolic blood pressure 86 mm[Hg] 86 mm[Hg] [facility] ([facility]) Systolic blood pressure 124 mm[Hg] 124 mm[Hg] [facility] Body surface area Derived from formula 1.77 m2 1.77 m2 [facility] ([facility]) Body mass index (BMI) [Ratio] 36.2 kg/m2 36.2 k g/m2 [facility] ([facility]) Body weight 181.00 [lb_av] 181.00 [lb_av] [facility] ([facility]) Body height 59.25 [in_i] 59.25 [in_i] [facility] ([facility]) 4'11.25" Diastolic blood pressure 84 mm[Hg] 84 mm[Hg] [facility] ([facility]) Systolic blood pressure 136 mm[Hg] 136 mm[Hg] M [facility] ([employer]) Body surface area 1.77 m2 1.77 m2 [facility] ([facility] [facility] [employer]) Body weight 82.555 kg 82.555 kg [facility] ([facility]) Body mass index (BMI) [Ratio] 35.5 kg/m2 35.5 k g/m2 [facility] ([facility]) Body weight 182.00 [lb_av] 182.00 [lb_av] [facility] ([facility]) Body height 60 [in_i] 60 [in_i] [facility]) 5'0" Diastolic blood pressure 84 mm[Hg] 84 mm[Hg] [facility] ([facility]) Systolic blood pressure 132 mm[Hg] 132 mm[Hg] [facility] Body mass index (BMI) [Ratio] 35.6 kg/m2 35.6 k g/m2 [facility] ([facility]) Body weight 181.00 [lb_av] 181.00 [lb_av] [facility] ([facility]) Body height 59.75 [in_i] 59.75 [in_i] [facility] ([facility]) 4'11.75" Heart rate 88 /min 88 /min [facility] ([facility]) Diastolic blood pressure 66 mm[Hg] 66 mm[Hg] [facility] ([facility]) RT Arm Systolic blood pressure 126 mm[Hg] 126 mm[Hg] [facility] ([facility]) RT Arm
[2020-07-11] MEDS ORDERED: BLAC40CA PO (17:08)
--- OUTSIDE RECORDS SUMMARY | 2020-07-11 18:08 | CCD ---
Author Author [facility] Organization [facility] Address Unknown Phone Unavailable Care Team Providers Care Treater Helper Name Role Phone Duc, Marti DO Unavailable [...] Unavailable Unavailable Duc, Marti DO Unavailable Unavailable Udc, Marti DO Unavailable Unavailable Duc, Marti DO [...] MCKEON MD Unavailable Unavailable BROWN, L MIKE MUSATFA Unavailable Unavailable BROWN, Carla MCKEON MD Unavailable Unavailable BROWN, Carla MCKEON MD Unavailable Unavailable BROWN, Carla MCKEON MD Unavailable Unavailable BROWN, Carla MCKEON MD Unavailable Unavailable BROWN, L MIKE MUSTAFA Unavailable Unavailable BROWN, Carla MCKEON MD Unavailable Unavailable BROWN, Carla MCKEON MD Unavailable Unavailable BROWN, Carla MCKEON MD Unavailable Unavailable BROWN, Carla MCKEON MD Unavailable Unavailable RBOWN, Carla MCKEON MD Unavailable Unavailable BROWN, Carla [...] is protected by Article 27-F of the [facility] Public Health law. If you continue you may have access to information: Regarding HIV / AIDS; Provided by facilities licensed or operated by the [facility] Office of Mental Health; or Provided by the [facility] Office for People With Developmental Disabilities. If such information is present, then the following [facility] mandated warning applies: This information has [...] Class NO KNOWN ALLERGIES NO KNOWN ALLERGIES [facility] Family History Family Member Name Family Member Gender Family Member Status Date o f Status Description Data Source(s) Unknown Unknown Problem [facility] ([facility]) Unknown Female Problem [facility] ([facility]) Unknown Female Encounters Encounter Providers Location Date Indications Data Source(s ) Outpatient Attender: MACKENZIE García Prim perlita 06/06/2020 11:50:00 AM EST [facility] ([facility]) Outpatient Attender: MIKE BROWN MD [facility] [employer]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 12/2020 08:30:00 AM EST [facility] ([facility]) Outpatient Attender: Marti Villanueva 05/24 07:00:00 AM EST [facility] ([facility] ) Outpatient Admitter: ANTOINETTE TINOCO MDReferrer: ANTOINETTE OLMOS MD 11/23/2019 12:00:00 AM EDT Malignant neoplasm of unspecified site o f unspecified female breast [facility] Malignant neoplasm of unspecified site o f unspecified female breast Outpatient Attender: Marti Villanueva 11/17 08:00:00 AM EDT [facility] ([facility] ) Outpatient Referrer: MIKE BROWN MD 11/14/2019 05:59:00 AM EDT [facility] Outpatient Referrer: MIKE BROWN MD 10/13/2019 06:24:00 AM EDT [facility] Outpatient Attender: ANTOINETTE Us/Wendy/Praveen/Re indl 10/10/2019 02:00:00 PM EDT [facility] ([facility] Outpatient Attender: ANTOINETTE Meléndez/Praveen/Re indl 09/26/2019 10:30:00 AM EDT [facility] ([facility] Outpatient Attender: ANTOINETTE Us/Wendy/Praveen/Re indl 07/04/2019 01:30:00 PM EST [facility] ([facility] Outpatient Referrer: MIKE BROWN MD 06/01/2019 01:57:00 PM EST [facility] Outpatient Referrer: MIKE BROWN MD 05/30/2019 05:30:00 PM EST [facility] Outpatient Attender: MIKE BROWN MD [facility]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 10/2019 08:30:00 AM EST [facility] ([facility] [employer]) Outpatient Attender: ANTOINETTE Us/Wendy/Praveen/Re indl 05/23/2019 10:15:00 AM EST [facility] ([facility] ) Outpatient Attender: Marti Villanueva 05/17 07:00:00 AM EST [facility] ([facility] ) Medications Medication Brand Name Start Date Product Form Dose Route Admi nistrative Instructions Pharmacy Instructions Status Indications Reaction Description Data Source(s) Metronidazole 7.5 MG/ML Topical Lotion Metronidazole 0 12:00:00 AM EDT active [facility] ( [facility]) Insurance Providers Payer name Policy type / Coverage type Policy ID Covered democrat ID Covered democrat's relationship to rodriguez Policy Rodriguez Plan Information [place]/307 [id number] SP [id number] [place]/307 [id number] SP [id number] EXCELLUS H [id number] Self [id number] [place]/307 [id number] SP [id number] EXCELLUS BCBS B [id number] S [id number] [place] 302/307 [id number] SP [id number] [place] 302/307 [id number] SP [id number] [place] 302/307 [id number] SP [id number] [place] Tr[place] Medigap Part B [id number] Self [id number] [place] Medigap Part B [id number] Self [id number] [place] Commercial [id number] Self [id number] [facility] Healthcare Commercial [id number] Family Dependent [id number] [place] Medigap Part B [id number] Self [id number] [place] Tr[place] Commercial [id number] Self [id number] [place] P[place] 302/307 [id number] SP [id number] EXCELLUS BCBS B [id number] S [id number] [facility] Commercial [id number] Self [id number] [place] PPO 302/307 [id number] SP [id number] [place] [place] PPO 302/307 [id number] SP [id number] [place] Tr[place] Medigap Part B [id number] Self [id number] [place] Tr[employer]/[place] Commercial [id number] Self [id number] [place] Tr[place] Commercial [id number] Self [id number] EXCELLUS BCBS B [id number] S [id number] [place] PPO 302/307 [id number] SP [id number] EXCELLUS BCBS B [id number] S [id number] [place] Trad/MX Commercial [id number] Self [id number] MVP Healthcare Commercial Ppo Family Dependent Ppo MVP H [id number] Self [id number] [employer] [facility] O [id number] S [id number] [facility] [id number] SP [id number] MVP (pr) Commercial Family Dependent MVP Commercial Family Dependent [facility] PHY [id number] SP [id number] [employer] [facility] P [id number] P [id number] [facility] PHY [id number] [id number] Problems, Conditions, and Diagnoses Code Display Name Description Problem Type Effective Dates Data Source(s) C50.919 Malignant neoplasm of unspecified site o f unspecified female breast Malignant neoplasm of unspecified site of unspecified female breast Diagnosis 11/23/2019 03:12:[address] [facility] Surgeries/Procedures Procedure Description Date Indications Data Source(s) Mammogram 04/13/2020 12:00:00 AM EST M EDENT ([facility]) Excision Of Cyst Fibroadenoma Or Other Benign Or Malignant T umor 11/17/2019 12:00:00 AM EDT [facility] ([facility], ) Results ID Date Data Source [id number] 06/06/2020 12:00:00 AM EST [facility] Name Value Range Interpretation Code Description Data Tania rce(s) Supporting Document(s) SARS coronavirus 2 [facility] This lab was ordered by [facility] and reported by [facility]. ID Date Data Source [id number] 06/01/2020 12:00:00 PM EST [facility] ([facility]URANCE PROCESS[facility]) Name Value Range Interpretation Code Description Data Tania rce(s) Supporting Document(s) TP Reflex HPV ASCUS Laboratory test result [facility] ([facility] INSURANCE PROCESSOR) TP Reflex HPV ASCUS Laboratory test result [facility] ([facility] INSURANCE PROCESSOR) SPECIMEN PART------ A. Cervical, Endocervical, ThinPrep Pap (Model Maker Plaster) CYTOLOGY HX-------- Other Information: Post-menopausal Previous Pap: 05/30/2019 NEGATIVE FINAL DIAGNOSIS---- INTERPRETATION: Negative for Intraepithelial Lesion or Malignancy. SPECIMEN ADEQUACY:Satisfactory for evaluation. Endocervical/transformation zone component cannot be determined due to the presence of atrophy. ADDITIONAL FINDINGS:Atrophic pattern. ID Date Data Source [id number] 05/24/2020 08:02:00 AM EST [facility] ([facility]) Name Value Range Interpretation Code Description Data Tania rce(s) Supporting Document(s) Glucose [Mass/volume] in Serum or Plasma 71 mg/dL 74-99 [facility] ([facility]) 100-125 mg/dL PRE-DIABETES/FASTING >126 mg/dL DIABETES/FASTING Creatinine 0.7 mg/dL 0.6-1.3 [facility] ([facility]) Urea nitrogen [Mass/volume] in Serum or Plasma 19 mg/dL 7-18 [facility] ([facility]) Potassium [Moles/volume] in Serum or Plasma 4.5 meq/L 3.5-5.1 [facility] ([facility]) Chloride [Moles/volume] in Serum or Plasma 103 meq/L 98-107 [facility] ([facility]) Sodium [Moles/volume] in Serum or Plasma 141 meq/L 136-145 [facility] ([facility]) Carbon dioxide, total [Moles/volume] in Serum or Plasma 33 meq/L 21 -32 [facility] ([facility]) Glomerular filtration rate/1.73 sq M pre dicted among non-blacks [Volume Rate/Area] in Serum or Plasma by Creatinine-based formula (MDRD) Laboratory test result [facility] Glomerular filtration rate/1.73 sq M pre dicted among blacks [Volume Rate/Area] in Serum or Plasma by Creatinine-based formula (MDRD) Laboratory test result [facility] ([facility]) <content>CHRONIC KIDNEY DISEASE STAGING PER NKF</content>
<content></content>
<content>STAGE I & II GFR >= 60 NORMAL TO MILDLY DECREASED</content>
<content>STAGE III GFR 30-59 MODERATELY DECREASED</content>
<content>STAGE IV GFR 15-29 SEVERELY DECREASED</content>
<content>STAGE V GFR <15 VERY LITTLE GFR LEFT</content>
<content>ESRD GFR <15 ON ENVIRONMENTAL MANAGER</content>
<content></content> Calcium [Mass/volume] in Serum or Plasma 9.3 mg/dL 8.5-10.1 [facility] ([facility]) ID Date Data Source [id number] 01/04/2020 09:00:00 AM EDT [facility] ([facility]) Name Value Range Interpretation Code Description Data Tania rce(s) Supporting Document(s) Blood Urea Nitrogen 17 mg/dL 7-18 [facility] ([facility]) Creatinine For GFR 0.61 mg/dL 0.55-1.30 [facility] ([facility]) Glucose, Fasting 90 mg/dL 70-100 [facility] ([facility]) Sodium Level 140 meq/L 136-145 [facility] ([facility]) Glomerular Filtration Rate Laboratory test result [facility] <content>Units are mL/min/1.73 m2</content>
<content></content>
<content>Chronic Kidney Disease Staging per NKF:</content>
<content></content>
<content>Stage I & II GFR >=60 Normal to Mildly Decreased</content>
<content>Stage III GFR 30- 59 Moderately Decreased</content>
<content>Stage IV GFR 15-29 Severely Decreased</content>
<content>Stage V GFR <15 Very Little GFR Left</content>
<content>ESRD GFR <15 on ENVIRONMENTAL MANAGER</content>
<content></content> Potassium Serum 4.1 meq/L 3.5-5.1 [facility] ([facility]) Anion Gap 2 meq/L 8-16 [facility] ([facility]) Chloride Level 105 meq/L 98-107 [facility] Carbon Dioxide Level 33 meq/L 21-32 [facility] ([facility] Calcium Level 9.6 mg/dL 8.5-10.1 [facility] ([facility] Alt/SGPT 29 U/L 12-78 [facility] ([facility]) Ast/Sgot 21 U/L 7-37 [facility] ([facility]) Albumin 3.9 GM/DL 3.2-5.2 [facility] ([facility]) Alkaline Phosphatase 116 U/L 45-117 [facility] ([facility] Total Protein 6.7 GM/DL 6.4-8.2 [facility] ([facility] Bilirubin,Total 0.6 mg/dL 0.2-1.0 [facility] ([facility]) Albumin/Globulin Ratio 1.4 1.2-2.2 [facility] ([facility]) ID Date Data Source [id number] 01/04/2020 09:00:00 AM EDT [facility] ([facility]) Name Value Range Interpretation Code Description Data Tania rce(s) Supporting Document(s) White Blood Count 5.9 10 4.0-10.0 [facility] ([facility]) Red Blood Count 4.54 10 4.00-5.40 [facility] ([facility]) Hematocrit 41.3 % 36.0-47.0 [facility] Hemoglobin 14.2 g/dL 12.0-15.5 [facility] ([facility]) Mean Corpuscular Hemoglobin 31.3 pg 27.0-33.0 [facility] ([facility]) Mean Corpuscular Volume 91.0 fl 80.0-96.0 [facility] ([facility]) Mean Corpuscular HGB Conc 34.4 g/dL 32.0-36.5 MEDE NT ([facility]) Red Cell Distribution Width 13.2 % 11.5-14.5 ME DENT ([facility]) Lymph % 33.7 % 24.0-44.0 [facility] Platelet Count, Automated 268 10 150-450 MEDE NT ([facility]) Neutrophils % 59.1 % 36.0-66.0 [facility] ([facility]) Baso % 0.8 % 0.0-1.0 [facility]) Mathews % 3.9 % 0.0-5.0 [facility]) Eos % 2.2 % 0.0-3.0 [facility] Immature Granulocyte % 0.3 % 0-3.0 [facility] ([facility]) Nucleated Red Blood Cell % 0.0 % 0-0 MED ENT ([facility]) Neutrophils # 3.5 10 1.5-8.5 [facility] ([facility]) Eos # 0.1 10 0.0-0.5 [facility]) Lymph # 2.0 10 1.5-5.0 [facility]) Mathews # 0.2 10 0.0-0.8 [facility]) Baso # 0.1 10 0.0-0.2 [facility]) ID Date Data Source [id number] 01/04/2020 09:00:00 AM EDT [facility] ([facility]) Name Value Range Interpretation Code Description Data Tania rce(s) Supporting Document(s) Prothrombin Time 13.1 s 11.8-14.0 [facility] ([facility]) Partial Thromboplastin Time 28.1 s 25.0-38.4 ME DENT ([facility]) Inr 0.97 [facility] ([facility] THERAPUTIC HUMAN INR VALUES INDICATIONS NORMAL RANGES PROPHYLAXIS/TREATMENT OF: VENOUS THROMBOSIS 2.0-3.0 PULMONARY EMBOLISM 2.0-3.0 PREVENTION OF SYSTEMIC EMBOLISM FROM: TISSUE HEART VALVES 2.0-3.0 ACUTE MYOCARDIAL INFARCTION 2.0-3.0 VALVULAR HEART DISEASE 2.0-3.0 ATRIAL FIBRILLATION 2.0-3.0 MECHANICAL VALVES(HIGH RISK) 2.5-3.5 RECURRENT MYOCARDIAL INFARCTION 2.5-3.5 ID Date Data Source [id number] 12/02/2019 02:19:00 PM EDT [facility] ([facility], ) Name Value Range Interpretation Code Description [facility] Supporting Document(s) Surgical pathology study Laboratory test result [facility] ([facility], ) FINAL DIAGNOSIS A-Lymph node, left sentinel: [...] MD 12/06/2019 1022 ID Date Data Source [id number] 11/29/2019 11:20:00 AM EDT [facility] Name Value Range Interpretation Code Description Data Tania rce(s) Supporting Document(s) SARS coronavirus 2 RNA [facility] This lab was ordered by [facility] and reported by [facility]. ID Date Data Source [id number] 11/23/2019 03:13:00 PM EDT [facility] ([facility], ) Name Value Range Interpretation Code Description Data Tania rce(s) Supporting Document(s) Surgical Pathology Consult Laboratory test result [facility] ([facility], ) Surgical Pathology Report Name: MAME COMBS Collection Date: 11/23/2019 00:00 Received Date: 11/23/2019 15:14 Physician(s): ANTOINETTE TINOCO MD ZHANG, YILIN, MD, Specimen(s) Received A: Material received for consultation, [facility] Clinical History Left breast masses. Please see attached MRI report. 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 Please do [place], [place], and Her 2 on both blocks 2+ reflex to FISH. Diagnosis BREAST, LEFT, AREA OF CALCIFICATION, EXCISION ([id number], SLIDE D2; 11/18/19): INVASIVE DUCTAL CARCINOMA. GRADE: 2 VASCULAR INVASION: Absent DCIS: Present, high grade. CALCIFICATIONS: Absent ESTROGEN RECEPTORS: Positive (strong,100 %). PROGESTERONE RECEPTORS: Positive (moderate to weak, 60%). 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 GRADE: 2 VASCULAR INVASION: Absent DCIS: Present, high grade. CALCIFICATIONS: Absent ESTROGEN RECEPTORS: Positive (strong,100 %). PROGESTERONE RECEPTORS: Positive (moderate, 80%). HER2: Negative (0) Electronically Signed By Giovani Nielson M.D., Attending Pathologist 11/24/2019 16:39:34 Gross Description Received from [facility] in [place], [place] are 2 H and E stained slides and 2 paraffin blocks labeled [id number] with the corresponding pathology report. Also received [...] developed and their performance characteristics determined by [facility] Pathology department. They have not been cleared or approved by the US Food and Drug Administration. The FDA has determined that such clearance or approval is not necessary. ID Date Data Source [id number] 11/24/2019 04:39:00 PM [facility] Surgical Pathology ReportName: Zack COMBS JUANIKENNEDYRN: [id number] Number: [id number] Date: 11/23/2019 00:00Received Date: 11/23/2019 15:14Physician(s): ANTOINETTE TINOCO MD ZHANG, YILIN, MD,MDSpecimen(s) ReceivedA: Material received for consultation, GDLRClinical HistoryLeft breast masses. Please see attached MRI report. 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 Please do[place], [place], and Her 2 on both blocks 2+ reflex to FISH.DiagnosisBREAST, LEFT, AREA OF CALCIFICATION, EXCISION ([id number], SLIDE D2;11/18/19): INVASIVE DUCTAL CARCINOMA.GRADE: 2VASCULAR INVASION: AbsentDCIS: Present, high grade. CALCIFICATIONS: AbsentESTROGEN RECEPTORS: Positive (strong,100 %).PROGESTERONE RECEPTORS: Positive (moderate to weak, 60%).HER2: Negative (0) BREAST, LEFT, LUMPECTOMY ([id number], SLIDE A3; 11/18/19): ENCAPSULATEDPAPILLARY CARCINOMA WITH ADJACENT FOCUS OF INVASIVE DUCTAL CARCINOMA.GRADE: 2VASCULAR INVASION: AbsentDCIS: Present, high grade. CALCIFICATIONS: AbsentESTROGEN RECEPTORS: Positive (strong,100 %).PROGESTERONE RECEPTORS: Positive (moderate, 80%).HER2: Negative (0) Electronically Signed By Giovani Nielson M.D., Attending Pathologist11/24/2019 16:39:34 Gross DescriptionReceived from [facility] in [place], [place] are 2 H and Estained slides and 2 paraffin blocks labeled [id number] with thecorresponding pathology report. Also received is [...] developed and their performance characteristics determined by [facility] Pathology department. They have not been cleared or approved by the USFood and Drug Administration. The FDA has determined that such clearanceor approval is not necessary. Name Value Range Interpretation Code Description Data Tania rce(s) Supporting Document(s) ID Date Data Source [id number] 11/19/2019 08:41:00 PM EDT [facility] ([facility]) Name Value Range Interpretation Code Description Data Tania rce(s) Supporting Document(s) Laboratory test finding (navigational concept) 38.0 % 38.0-51.0 [facility] ([facility]) Laboratory test finding (navigational concept) 139 meq/L 136-145 [facility] ([facility]) Laboratory test finding (navigational concept) 122 mg/dL 70-105 [facility] ([facility]) Laboratory test finding (navigational concept) 3.6 meq/L 3.5-5.1 [facility] ([facility]) Laboratory test finding (navigational concept) 101 meq/L 98-109 [facility] ([facility]) Laboratory test finding (navigational concept) 4.7 mg/dL 4.5-5.3 [facility] ([facility]) Laboratory test finding (navigational concept) 21 mg/dL 8-26 [facility] ([facility]) Laboratory test finding (navigational concept) 0.7 mg/dL 0.6-1.3 [facility] ([facility]) Laboratory test finding (navigational concept) 26.0 MM/L 23.0-27.0 [facility] ([facility]) ID Date Data Source [id number] 11/19/2019 07:49:00 PM EDT [facility] ([facility]) Name Value Range Interpretation Code Description Data Tania rce(s) Supporting Document(s) Hemoglobin 13.9 g/dL 12.0-15.5 [facility] White Blood Count 8.6 10 4.0-10.0 [facility] ([facility]) Red Blood Count 4.40 10 4.00-5.40 [facility] ([facility]) Mean Corpuscular Hemoglobin 31.6 pg 27.0-33.0 [facility] ([facility]) Mean Corpuscular Volume 91.4 fl 80.0-96.0 [facility] ([facility]) Hematocrit 40.2 % 36.0-47.0 [facility]) Neutrophils % 68.6 % 36.0-66.0 [facility] ([facility]) Mean Corpuscular HGB Conc 34.6 g/dL 32.0-36.5 MEDE NT ([facility]) Red Cell Distribution Width 13.7 % 11.5-14.5 [facility] ([facility]) Platelet Count, Automated 324 10 150-450 MED[facility] NT ([facility]) Mathews % 3.5 % 0.0-5.0 [facility] Eos % 1.2 % 0.0-3.0 [facility] Lymph % 26.0 % 24.0-44.0 [facility] Neutrophils # 5.9 10 1.5-8.5 [facility] ([facility]) Immature Granulocyte % 0.2 % 0-3.0 [facility] ([facility]) Nucleated Red Blood Cell % 0.0 % 0-0 MED E[facility] ([facility]) Baso % 0.5 % 0.0-1.0 [facility] Mathews # 0.3 10 0.0-0.8 [facility] Lymph # 2.2 10 1.5-5.0 [facility] Eos # 0.1 10 0.0-0.5 [facility] Baso # 0.0 10 0.0-0.2 [facility] ID Date Data Source [id number] 11/19/2019 07:49:00 PM EDT [facility] ([facility]) Name Value Range Interpretation Code Description Data Tania rce(s) Supporting Document(s) Alt/SGPT 25 U/L 12-78 [facility] ([facility]) Alkaline Phosphatase 99 U/L 45-117 [facility] ([facility]) Ast/Sgot 22 U/L 7-37 [facility] ([facility]) Bilirubin,Total 0.3 mg/dL 0.2-1.0 [facility] ([facility]) Bilirubin,Direct Laboratory test result 0.0-0.2 [facility] ([facility]) Total Protein 7.1 GM/DL 6.4-8.2 [facility] ([facility]) Albumin 4.1 GM/DL 3.2-5.2 [facility] ([facility]) Albumin/Globulin Ratio 1.4 1.2-2.2 [facility] ([facility]) ID Date Data Source [id number] 11/19/2019 07:49:00 PM EDT [facility] ([facility]) Name Value Range Interpretation Code Description Data Tania rce(s) Supporting Document(s) Glucose, Fasting 102 mg/dL 70-100 [facility] ([facility]) Creatinine For GFR 0.73 mg/dL 0.55-1.30 [facility] ([facility]) Blood Urea Nitrogen 21 mg/dL 7-18 [facility] ([facility]) Potassium Serum 3.6 meq/L 3.5-5.1 [facility] ([facility]) Sodium Level 138 meq/L 136-145 [facility] ([facility]) Glomerular Filtration Rate Laboratory test result [facility] ([facility]) <content>Units are mL/min/1.73 m2</content>
<content></content>
<content>Chronic Kidney Disease Staging per NKF:</content>
<content></content>
<content>Stage I & II GFR >=60 Normal to Mildly Decreased</content>
<content>Stage III GFR 30- 59 Moderately Decreased</content>
<content>Stage IV GFR 15-29 Severely Decreased</content>
<content>Stage V GFR <15 Very Little GFR Left</content>
<content>ESRD GFR <15 on ENVIRONMENTAL MANAGER</content>
<content></content> Calcium Level 9.1 mg/dL 8.5-10.1 [facility] ([facility]) Chloride Level 104 meq/L 98-107 [facility] ([facility]) Carbon Dioxide Level 28 meq/L 21-32 [facility] ([facility]) Anion Gap 6 meq/L 8-16 [facility] ([place] [facility]) ID Date Data Source [id number] 11/19/2019 07:49:00 PM EDT [facility] ([facility]) Name Value Range Interpretation Code Description Data Tania rce(s) Supporting Document(s) Lipoprotein lipase [Enzymatic activity/volume] in Serum or P lasma 119 U/L 73-393 [facility] ([facility]) ID Date Data Source [id number] 11/19/2019 07:49:00 PM EDT [facility] ([facility]) Name Value Range Interpretation Code Description Data Tania rce(s) Supporting Document(s) Prothrombin Time 12.8 s 11.8-14.0 [facility] ([facility]) Inr 0.99 [facility] ([facility]) THERAPUTIC HUMAN INR VALUES INDICATIONS NORMAL RANGES PROPHYLAXIS/TREATMENT OF: VENOUS THROMBOSIS 2.0-3.0 PULMONARY EMBOLISM 2.0-3.0 PREVENTION OF SYSTEMIC EMBOLISM FROM: TISSUE HEART VALVES 2.0-3.0 ACUTE MYOCARDIAL INFARCTION 2.0-3.0 VALVULAR HEART DISEASE 2.0-3.0 ATRIAL FIBRILLATION 2.0-3.0 MECHANICAL VALVES(HIGH RISK) 2.5-3.5 RECURRENT MYOCARDIAL INFARCTION 2.5-3.5 ID Date Data Source [id number] 11/19/2019 07:49:00 PM EDT [facility] ([facility]) Name Value Range Interpretation Code Description Data Tania rce(s) Supporting Document(s) Appearance, Urine Manual RFX Laboratory test result [facility] ([facility]) SP [place],Urine Manual Reflex 1.030 1.002-1.035 [facility] ([facility]) Color, Urine Manual Reflex Laboratory test result [facility] ([facility]) PH,Urine Man Reflex 5.0 units 5.0-7.0 [facility] ([facility]) Glucose, Urine (Ua) Manual Laboratory test result [facility] ([facility]) Protein, Urine Manual Reflex Laboratory test result [facility] ([facility]) Urobilinogen, Urine Manual Laboratory test result [facility] ([facility]) Ketone, Urine Manual Laboratory test result [facility] ([facility]) Nitrite, Urine Manual RFX Laboratory test result [facility] ([facility]) Bilirubin, Urine Manual Laboratory test result [facility] ([facility]) Leukocyte Esterase, Ur Man RFX Laboratory test result [facility] ([facility]) Blood Urine Manual RFX Laboratory test result [facility] ([facility]) ID Date Data Source [id number] 11/19/2019 07:49:00 PM EDT [facility] ([facility]) Name Value Range Interpretation Code Description Data Tania rce(s) Supporting Document(s) WBC, Urine Man RFX Laboratory test result 0-3 [facility] ([facility]) RBC, Urine Laboratory test result 0-3 [facility] ([facility]) Squamous Epithelial Cell Urine Laboratory test result [facility] Hyaline Cast, Urine Laboratory test result 0-1 [facility] ([facility] Bacteria, Urine Laboratory test result [facility] ([facility]) Microscopic Exam Laboratory test result [facility] ID Date Data Source [id number] 11/19/2019 07:49:00 PM EDT [facility] ([facility]) Name Value Range Interpretation Code Description Data [facility](s) Supporting Document(s) CPK Creatine Phosphokinase 186 U/L 26-192 [facility] ([facility] CK-MB Value Mass 4.8 ng/mL [facility] ([facility] MB/CK Relative Index 2.58 [facility] ([facility] <content>DIAGNOSIS CRITERIA</content>
<content>MMB ng/ml Relative Index (RI)</content>
<content>NON-AMI < or = 5 N/A</content>
<content>AVILA ZONE > 5 < or = 4</content>
<content>AMI > 5 > 4</content>
<content></content> Troponin I Laboratory test result [facility] ([facility]) <content>Troponin I Reference Interval f or [employer] [place] LOCI:</content>
<content></content>
<content>99th Percentile= 0.00-0.045 ng/ml</content>
<content></content>
<content>Risk Stratification:</content>
<content><= 0.10 ng/ml Decreased Risk for Adverse Clinical</content>
<content>Events.</content>
<content>0.10-1.50 ng/ml Increased Risk for Adverse Clinical</content>
<content>Events. Evaluation of additional</content>
<content>criterion and/or repeat testing in 2-6</content>
<content>hours is suggested to rule out myocardial</content>
<content>damage.</content>
<content>>= 1.50 ng/ml Indicative of Myocardial Injury.</content>
<content></content> ID Date Data Source [id number] 11/19/2019 07:49:00 PM EDT [facility] Name Value Range Interpretation Code Description Data Tania rce(s) Supporting Document(s) Amylase [Enzymatic activity/volume] in Serum or Plasma 60 U/L 25- 115 [facility] ([facility]) ID Date Data Source [id number] 11/19/2019 07:49:00 PM EDT [facility] ([facility] Name Value Range Interpretation Code Description Data Tania rce(s) Supporting Document(s) Reflex Urine Culture Laboratory test result [facility] ([facility]) FULL REPORT IN LAB NOTES ([facility] and [facility] ). SPECIMEN APPEARS CONTAMINATED ID Date Data Source [id number] 11/18/2019 08:24:00 AM EDT [facility] Name Value Range Interpretation Code Description Data Tania rce(s) Supporting Document(s) Cobalamin (Vitamin B12) [Mass/volume] in Serum or Plasma Lab oratory test result [id number] [facility] ([facility]) VITAMIN B12 NORMAL RANGE NORMAL 247 - 911 PG/ML INDETERMINATE 211 - 246 PG/ML DEFICIENT LESS THAN 211 PG/ML ID Date Data Source [id number] 11/18/2019 08:22:00 AM EDT [facility] ([facility] Name Value Range Interpretation Code Description Data Tania rce(s) Supporting Document(s) Thyrotropin [Units/volume] in Serum or Plasma by Detec tion limit <= 0.05 mIU/L 0.93 uIU/mL 0.36-3.74 [facility] ([facility] ) ID Date Data Source [id number] 11/18/2019 08:22:00 AM EDT [facility] Name Value Range Interpretation Code Description Data Tania rce(s) Supporting Document(s) Cholesterol [Mass/volume] in Serum or Plasma 213 mg/dL 131-200 [facility] ([facility]) Cholesterol in HDL [Mass/volume] in Serum or Plasma 80 mg/dL 35-60 [facility] ([facility]) Triglyceride [Mass/volume] in Serum or Plasma 46 mg/dL 30-150 [facility] ([facility]) Cholesterol in LDL [Mass/volume] in Serum or Plasma by calcu lation 124 CALC 50-159 [facility] ([facility]) ID Date Data Source [id number] 11/18/2019 08:22:00 AM EDT [facility] ([facility]) Name Value Range Interpretation Code Description Data Tania rce(s) Supporting Document(s) Creatinine 0.7 mg/dL 0.6-1.3 [facility] ([facility]) Urea nitrogen [Mass/volume] in Serum or Plasma 15 mg/dL 7-18 [facility] ([facility]) Glucose [Mass/volume] in Serum or Plasma 94 mg/dL 74-99 [facility] ([facility]) 100-125 mg/dL PRE-DIABETES/FASTING >126 mg/dL DIABETES/FASTING Carbon dioxide, total [Moles/volume] in Serum or Plasma 30 meq/L 21 -32 [facility] ([facility]) Potassium [Moles/volume] in Serum or Plasma 4.6 meq/L 3.5-5.1 [facility] ([facility]) Chloride [Moles/volume] in Serum or Plasma 105 meq/L 98-107 [facility] ([facility]) Sodium [Moles/volume] in Serum or Plasma 141 meq/L 136-145 [facility] ([facility]) Total Bilirubin 0.4 mg/dL 0.2-1.0 [facility] ([facility]) Calcium [Mass/volume] in Serum or Plasma 9.0 mg/dL 8.5-10.1 [facility] ([facility]) Alkaline phosphatase isoenzyme [Units/volume] in Serum or Pl asma 97 mg/dL 46-116 [facility] ([facility]) Aspartate aminotransferase [Enzymatic activity/volume] in Serum or Plasma 14 U/L 15-37 [facility] ([facility] ) Albumin [Mass/volume] in Serum or Plasma 3.6 g/dL 3.4-5.0 [facility] ([facility]) Alanine aminotransferase [Enzymatic activity/volume] in Seru m or Plasma 24 U/L 12-78 [facility] ([facility] Proteinase 3 Ab [Units/volume] in Serum 6.3 g/dL 6.4-8.2 [facility] ([facility]) A/G Ratio 1.33 CALC 1.00-1.90 [facility] Glomerular filtration rate/1.73 sq M pre dicted among non-blacks [Volume Rate/Area] in Serum or Plasma by Creatinine-based formula (MDRD) Laboratory test result [facility] ([facility] Glomerular filtration rate/1.73 sq M pre dicted among blacks [Volume Rate/Area] in Serum or Plasma by Creatinine-based formula (MDRD) Laboratory test result [facility] ([facility]) <content>CHRONIC KIDNEY DISEASE STAGING PER NKF</content>
<content></content>
<content>STAGE I & II GFR >= 60 NORMAL TO MILDLY DECREASED</content>
<content>STAGE III GFR 30-59 MODERATELY DECREASED</content>
<content>STAGE IV GFR 15-29 SEVERELY DECREASED</content>
<content>STAGE V GFR <15 VERY LITTLE GFR LEFT</content>
<content>ESRD GFR <15 ON ENVIRONMENTAL MANAGER</content>
<content></content> ID Date Data Source [id number] 11/18/2019 08:22:00 AM EDT [facility] ([facility]) Name Value Range Interpretation Code Description Data Tania rce(s) Supporting Document(s) Leukocytes [#/volume] in Blood by Automated count 8.1 x10*3/UL 4.1-10 .9 [facility] ([facility]) Hemoglobin [Mass/volume] in Blood 13.8 g/dL 12.0-18.0 [facility] ([facility] Erythrocytes [#/volume] in Blood by Automated count 4.42 x10*6/UL 4.2 0-6.30 [facility] ([facility]) Hematocrit [Volume Fraction] of Blood by Automated count 39.4 % 3 7.0-51.0 [facility] ([facility]) MCV 89.2 fL 80.0-97.0 [facility] ([place] [facility] MCHC 35.0 g/dL 31.0-38.0 [facility] ([place] [facility]) MCH 31.2 pg 26.0-32.0 [facility] ([facility] [facility]) Platelets [#/volume] in Blood by Automated count 302 x10*3/UL 140-440 [facility] ([facility]) Erythrocyte distribution width [Ratio] by Automated count 13.2 % 11.6-13.7 [facility] ([facility]) MPV 9.5 FL 7.8-11.0 [facility] ([facility] [facility]) Lymph % 17.9 % 10.0-58.5 [facility] ([facility] [facility]) Lymph # 1.4 x10*3/UL 0.6-4.1 [facility] ([facility]) Neut % 76.2 % 37.0-92.0 [facility] ([facility] [facility]) Mid % 5.9 % 1.7-9.3 [facility] ([facility] [facility]) Neut # 6.1 x10*3/UL 2.0-7.8 [facility] ([facility]) Mid # 0.6 x10*3/UL 0.1-0.6 [facility] ([facility]) ID Date Data Source [id number] 11/17/2019 05:18:00 PM EDT [facility] ([facility], ) Name Value Range Interpretation Code Description Data Tania rce(s) Supporting Document(s) Surgical pathology study Laboratory test result [facility] ([facility], ) <content>Addendum 2 Entered: 11/28/2019 - 1016</content>
<content></content>
<content></content>
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
<content>high grade DCIS:</content>
<content>ER: positive (100%).</content>
<content>[place]: Positive (80%).</content>
<content>Her2: Negative (0).</content>
<content></content>
<content>Specimen D - Area of calcification, excision: Invasive ductal</content>
<content>carcinoma, grade 2, and high grade DCIS:</content>
<content>ER: Positive (100%).</content>
<content>[place]: Positive (60%).</content>
<content>HER2: Negative (0).</content>
<content></content>
<content>Please see complete report [id number] from [facility].</content>
<content>Report amended to correct typo in [place] percentage in part D.</content>
<content>11/28/2019 - 1016</content>
<content>Addendum Signed____ Celina Langston MD 11/28/2019 1016</content>
<content> </content>
<content>Addendum 1 Entered: 11/28/2019-0845</content>
<content></content>
<content>Papillary carcinoma:</content>
<content>ER: positive (100%).</content>
<content>[place]: Positive (80%).</content>
<content>Her2: Negative (0).</content>
<content></content>
<content>Adjacent invasive ductal carcinoma:</content>
<content>ER: Positive (100%).</content>
<content>[place]: Positive 0%).</content>
<content>HER2: Negative (0).</content>
<content></content>
<content>See [facility] report [id number].</content>
<content></content>
<content>11/28/2019 - 0845</content>
<content>Addendum Signed____ Zulma [...] A</content>
<content>and D were submitted for ER, [place] and HER2 stains at [facility]</content>
<content>[place] and an addendum report will follow.</content>
<content></content>
[...] lateral margin is submitted in (A4) and</content>
<content>access services representative section of skin is submitted in [...] 11/21/2019 1414</content>
<content></content> ID Date Data Source [id number] 11/14/2019 12:05:00 PM EDT [facility] Name Value Range Interpretation Code Description Data Tania rce(s) Supporting Document(s) SARS CORONAVIRUS 2 RNA [facility] This lab was ordered by [facility] and reported by [facility]. ID Date Data Source [id number] 05/16/2019 07:55:00 AM EST [facility] ([facility]) Name Value Range Interpretation Code Description Data Tania rce(s) Supporting Document(s) Thyroxine (T4) free [Mass/volume] in Serum or Plasma 0.94 ng/dL 0.76- 1.46 [facility] ([facility]) ID Date Data Source [id number] 05/16/2019 07:55:00 AM EST [facility] ([facility] Name Value Range Interpretation Code Description Data Tania rce(s) Supporting Document(s) Thyrotropin [Units/volume] in Serum or Plasma by Detec tion limit <= 0.05 mIU/L 2.34 uIU/mL 0.36-3.74 [facility] ([facility] ) ID Date Data Source [id number] 05/16/2019 07:55:00 AM EST [facility] ([facility]) Name Value Range Interpretation Code Description Data Tania rce(s) Supporting Document(s) Urea nitrogen [Mass/volume] in Serum or Plasma 19 mg/dL 7-18 [facility] ([facility]) Glucose [Mass/volume] in Serum or Plasma 89 mg/dL 74-99 [facility] ([facility]) 100-125 mg/dL PRE-DIABETES/FASTING >126 mg/dL DIABETES/FASTING Sodium [Moles/volume] in Serum or Plasma 143 meq/L 136-145 [facility] ([facility]) Creatinine 0.7 mg/dL 0.6-1.3 [facility] ([facility]) Potassium [Moles/volume] in Serum or Plasma 4.2 meq/L 3.5-5.1 [facility] ([facility]) Chloride [Moles/volume] in Serum or Plasma 105 meq/L 98-107 [facility] ([facility]) Carbon dioxide, total [Moles/volume] in Serum or Plasma 28 meq/L 21 -32 [facility] ([facility]) Glomerular filtration rate/1.73 sq M pre dicted among non-blacks [Volume Rate/Area] in Serum or Plasma by Creatinine-based formula (MDRD) >= 60 mL/min [facility] ([facility]) Calcium [Mass/volume] in Serum or Plasma 9.3 mg/dL 8.5-10.1 [facility] ([facility]) Glomerular filtration rate/1.73 sq M pre dicted among blacks [Volume Rate/Area] in Serum or Plasma by Creatinine-based formula (MDRD) >= 60 mL/min [facility] ([facility]) <content>CHRONIC KIDNEY DISEASE STAGING PER NKF</content>
<content></content>
<content>STAGE I & II GFR >= 60 NORMAL TO MILDLY DECREASED</content>
<content>STAGE III GFR 30-59 MODERATELY DECREASED</content>
<content>STAGE IV GFR 15-29 SEVERELY DECREASED</content>
<content>STAGE V GFR <15 VERY LITTLE GFR LEFT</content>
<content>ESRD GFR <15 ON ENVIRONMENTAL MANAGER</content>
<content></content> Procedure Social History Code Duration Value Status Description Data Source(s ) Smoking 06/06/2020 12:00:00 AM EST Patient has never smoked co mpleted Patient has never smoked [facility] ([facility], [facility]) Smoking 06/01/2020 12:00:00 AM EST Patient has never smoked co mpleted Patient has never smoked [facility] ([employer]) Vital Signs ID Date Data Source UNK Name Value Range Interpretation Code Description Data Source(s) Body mass index (BMI) [Ratio] 36.4 kg/m2 36.4 k g/m2 [facility] ([facility], [facility]) Body height 59 [in_i] 59 [in_i] [facility] ([facility]) 4'11" Body weight 180.00 [lb_av] 180.00 [lb_av] [facility] T ([facility], [facility]) Body temperature 98.0 [degF] 98.0 [degF] [facility] ([facility], [facility]) Oxygen saturation in Arterial blood by Pulse oximetry 96 % 96 % [facility] ([facility]) Respiratory rate 18 /min 18 /min [facility] ( [facility]) Heart rate 86 /min 86 /min [facility] ([facility], [facility]) Diastolic blood pressure 90 mm[Hg] 90 mm[Hg] [facility] ([facility]) Systolic blood pressure 154 mm[Hg] 154 mm[Hg] M [facility] ([facility], [facility]) Body surface area Derived from formula 1.78 m2 1.78 m2 [facility] ([employer]) Body mass index (BMI) [Ratio] 36.4 kg/m2 36.4 k g/m2 [facility] ([employer]) Body weight 182.00 [lb_av] 182.00 [lb_av] [facility] T ([employer]) Body height 59.25 [in_i] 59.25 [in_i] [facility] ([facility] [employer]) ." Diastolic blood pressure 86 mm[Hg] 86 mm[Hg] [facility] ([employer]) Systolic blood pressure 140 mm[Hg] 140 mm[Hg] M [facility] ([employer]) Body mass index (BMI) [Ratio] 36.0 kg/m2 36.0 k g/m2 [facility] ([facility]) Body weight 183.00 [lb_av] 183.00 [lb_av] [facility] T ([facility]) Body height 59.75 [in_i] 59.75 [in_i] [facility] ." Heart rate 100 /min 100 /min [facility] ([facility]) Diastolic blood pressure 74 mm[Hg] 74 mm[Hg] [facility] ([facility]) RT Arm Systolic blood pressure 112 mm[Hg] 112 mm[Hg] [facility] ([facility]) RT Arm Body weight 81.194 kg 81.194 kg [facility] ([facility]) Body mass index (BMI) [Ratio] 35.0 kg/m2 35.0 k g/m2 [facility] ([facility]) Body weight 179.00 [lb_av] 179.00 [lb_av] [facility] ([facility]) Body height 60 [in_i] 60 [in_i] [facility] ([facility]) 5'0" Diastolic blood pressure 70 mm[Hg] 70 mm[Hg] [facility] ([facility]) Systolic blood pressure 110 mm[Hg] 110 mm[Hg] [facility] ([facility]) Body weight 80.741 kg 80.741 kg [facility] ([facility]) Body mass index (BMI) [Ratio] 34.8 kg/m2 34.8 k g/m2 [facility] ([facility]) Body weight 178.00 [lb_av] 178.00 [lb_av] [facility] Body height 60 [in_i] 60 [in_i] [facility] ([facility]) 5'0" Diastolic blood pressure 60 mm[Hg] 60 mm[Hg] [facility] ([facility]) Systolic blood pressure 130 mm[Hg] 130 mm[Hg] [facility] ([facility]) Body weight 80.287 kg 80.287 kg [facility] ([facility]) Body mass index (BMI) [Ratio] 34.6 kg/m2 34.6 k g/m2 [facility] ([facility]) Body weight 177.00 [lb_av] 177.00 [lb_av] [facility] ([facility]) Body height 60 [in_i] 60 [in_i] [facility] ([facility]) 5'0" Diastolic blood pressure 98 mm[Hg] 98 mm[Hg] [facility] ([facility]) Systolic blood pressure 152 mm[Hg] 152 mm[Hg] [facility] ([facility]) Body mass index (BMI) [Ratio] 35.2 kg/m2 35.2 k g/m2 [facility] ([facility]) Oxygen saturation in Arterial blood by Pulse oximetry 97 % 97 % [facility] ([facility]) Air Body weight 179.00 [lb_av] 179.00 [lb_av] [facility] ([facility]) Body height 59.75 [in_i] 59.75 [in_i] [facility] ([facility]) 4'11.75" Heart rate 71 /min 71 /min [facility] ([facility]) Diastolic blood pressure 80 mm[Hg] 80 mm[Hg] [facility] ([facility]) Systolic blood pressure 130 mm[Hg] 130 mm[Hg] [facility] ([facility]) Body weight 82.215 kg 82.215 kg [facility] ([facility]) Body mass index (BMI) [Ratio] 35.4 kg/m2 35.4 k g/m2 [facility] ([facility]) Body weight 181.25 [lb_av] 181.25 [lb_av] [facility] ([facility]) Body height 60 [in_i] 60 [in_i] [facility] ([facility]) 5'0" Diastolic blood pressure 66 mm[Hg] 66 mm[Hg] [facility] ([facility]) Systolic blood pressure 120 mm[Hg] 120 mm[Hg] [facility] ([facility]) Body weight 80.741 kg 80.741 kg [facility] ([facility]) Body mass index (BMI) [Ratio] 34.8 kg/m2 34.8 k g/m2 [facility] ([facility]) Body weight 178.00 [lb_av] 178.00 [lb_av] [facility] ([facility]) Body height 60 [in_i] 60 [in_i] [facility] ([facility]) 5'0" Diastolic blood pressure 80 mm[Hg] 80 mm[Hg] [facility] ([facility]) Systolic blood pressure 140 mm[Hg] 140 mm[Hg] [facility] ([facility]) Body weight 81.308 kg 81.308 kg [facility] ([facility]) Body mass index (BMI) [Ratio] 35.0 kg/m2 35.0 k g/m2 [facility] ([facility]) Body weight 179.25 [lb_av] 179.25 [lb_av] [facility] ([facility]) Body height 60 [in_i] 60 [in_i] [facility] ([facility]) 5'0" Body temperature 97.9 [degF] 97.9 [degF] [facility] ([facility]) Diastolic blood pressure 70 mm[Hg] 70 mm[Hg] [facility] ([facility]) Systolic blood pressure 122 mm[Hg] 122 mm[Hg] [facility] ([facility]) Body weight 83.236 kg 83.236 kg [facility] ([facility]) Body mass index (BMI) [Ratio] 35.8 kg/m2 35.8 k g/m2 [facility] ([facility]) Body weight 183.50 [lb_av] 183.50 [lb_av] [facility] ([facility]) Body height 60 [in_i] 60 [in_i] [facility] ([facility]) 5'0" Diastolic blood pressure 86 mm[Hg] 86 mm[Hg] [facility] [facility] ([facility]) Systolic blood pressure 124 mm[Hg] 124 mm[Hg] M [facility] ([facility]) Body surface area Derived from formula 1.77 m2 1.77 m2 [facility] ([employer]) Body mass index (BMI) [Ratio] 36.2 kg/m2 36.2 k g/m2 [facility] ([employer]) Body weight 181.00 [lb_av] 181.00 [lb_av] [facility] T ([employer]) Body height 59.25 [in_i] 59.25 [in_i] [facility] ([employer]) 4'11.25" Diastolic blood pressure 84 mm[Hg] 84 mm[Hg] [facility] ([employer]) Systolic blood pressure 136 mm[Hg] 136 mm[Hg] M [facility] ([employer]) Body surface area 1.77 m2 1.77 m2 [facility] ([employer]) Body weight 82.555 kg 82.555 kg [facility] ([facility]) Body mass index (BMI) [Ratio] 35.5 kg/m2 35.5 k g/m2 [facility] ([facility]) Body weight 182.00 [lb_av] 182.00 [lb_av] [facility] ([facility]) Body height 60 [in_i] 60 [in_i] [facility] ([facility]) 5'0" Diastolic blood pressure 84 mm[Hg] 84 mm[Hg] [facility] ([facility]) Systolic blood pressure 132 mm[Hg] 132 mm[Hg] M [facility] ([facility]) Body mass index (BMI) [Ratio] 35.6 kg/m2 35.6 k g/m2 [facility] ([facility]) Body weight 181.00 [lb_av] 181.00 [lb_av] [facility] T ([facility]) Body height 59.75 [in_i] 59.75 [in_i] [facility] ([facility]) 4'11.75" Heart rate 88 /min 88 /min [facility] ([facility]) Diastolic blood pressure 66 mm[Hg] 66 mm[Hg] [facility] ([facility]) RT Arm Systolic blood pressure 126 mm[Hg] 126 mm[Hg] Zack [facility] ([facility]) RT Arm
[2020-07-11 18:32] LABS: BASO % 0.5 % (0.0-1.0); EOS # 0.1 10^3/uL (0.0-0.5); EOS % 1.9 % (0.0-3.0); HEMATOCRIT 40.4 % (36.0-47.0); HEMOGLOBIN 13.9 g/dl (12.0-15.5); LYMPH # 2.1 10^3/uL (1.5-5.0); LYMPH % 32.9 % (24.0-44.0); MEAN CORPUSCULAR HEMOGLOBIN 31.6 pg (27.0-33.0); MEAN CORPUSCULAR HGB CONC 34.4 g/dl (32.0-36.5); MEAN CORPUSCULAR VOLUME 91.8 fl (80.0-96.0); MONO # 0.4 10^3/uL (0.0-0.8); MONO % 6.3 % (2.0-8.0); NEUTROPHILS # 3.6 10^3/uL (1.5-8.5); NEUTROPHILS % 58.2 % (36.0-66.0); PLATELET COUNT, AUTOMATED 284 10^3/uL (150-450); WHITE BLOOD COUNT 6.2 10^3/uL (4.0-10.0)
[2020-07-11 18:41] LABS: INR 0.97; PROTHROMBIN TIME 13.1 SECONDS (12.5-14.3)
[2020-07-11 18:42] LABS: PARTIAL THROMBOPLASTIN TIME 24.7 SECONDS (24.2-38.5)
[2020-07-11 18:59] LABS: ALBUMIN 3.9 GM/DL (3.2-5.2); ALT/SGPT 31 U/L (12-78); BILIRUBIN,DIRECT 0.1 MG/DL (0.0-0.2); BILIRUBIN,TOTAL 0.3 MG/DL (0.2-1.0); BLOOD UREA NITROGEN 21 MG/DL (7-18); CALCIUM LEVEL 9.4 MG/DL (8.5-10.1); CARBON DIOXIDE LEVEL 29 MEQ/L (21-32); CHLORIDE LEVEL 105 MEQ/L (98-107); CPK CREATINE PHOSPHOKINASE 95 U/L (26-192); GLOMERULAR FILTRATION RATE > 60.0 (>51); GLUCOSE, FASTING 84 MG/DL (70-100); MB/CK RELATIVE INDEX 2.11 (< OR =4); NT-PRO BNP 18 PG/ML (<125); POTASSIUM SERUM 4.4 MEQ/L (3.5-5.1); SODIUM LEVEL 141 MEQ/L (136-145); TOTAL PROTEIN 6.7 GM/DL (6.4-8.2); TROPONIN I < 0.02 NG/ML (< 0.10)
[2020-07-11 19:46] VITALS: O2SAT 95
[2020-07-11] MEDS ORDERED: ISOVUE-370 76% 100ML VIAL As Ordered ONE (19:56)
--- NOTE | 2020-07-11 20:38 | REPVR ---
PROCEDURE INFORMATION: Exam: CT Angiography Chest With Contrast Exam date and time: 07/11/2020 8:12 PM Age: 60 years old Clinical indication: Shortness of breath; Additional info: Sob/dyspnea on exertion TECHNIQUE: Imaging protocol: Computed tomographic angiography of the chest with contrast. 3D rendering (Not supervised by radiologist): MIP and/or 3D reconstructed images were created by the technologist. Radiation optimization: All CT scans at this facility use at least one of these dose optimization techniques: automated exposure control; mA and/or kV adjustment per patient size (includes targeted exams where dose is matched to clinical indication); or iterative reconstruction. Contrast material: ISOVUE 370; Contrast volume: 75 ml; Contrast route: INTRAVENOUS (IV); COMPARISON: CT Chest with contrast 01/20/2020 10:00 AM FINDINGS: Pulmonary arteries: There are no pulmonary emboli. Aorta: There is no aortic dissection or aneurysm. Lungs: Small stellate opacity in the left upper lobe not visualized on the prior examination 2019. Finding may represent a small focus of peripheral airway disease although other etiologies not excluded. Stable 3 mm nodule left upper lobe and 7 mm nodule right middle lobe. Small patchy foci of peripheral semi-solid and solid infiltrates in the lingular lobe, left lower lobe. Clinical correlation to exclude multifocal pneumonitis suggested. Pleural spaces: Unremarkable. No pneumothorax. No pleural effusion. Heart: Unremarkable. No cardiomegaly. No pericardial effusion. Mediastinal space: A moderate hiatal hernia is present. Lymph nodes: Unremarkable. No enlarged lymph nodes. Bones/joints: Marked dextroscoliosis. Osteoporosis. Soft tissues: Surgical clips in the left axilla. Skin thickening overlying the left breast. Clinical correlation to exclude inflammatory breast carcinoma suggested. IMPRESSION: 1. Small stellate opacity in the left upper lobe not visualized on the prior examination 2019. Finding may represent a small focus of peripheral airway disease although other etiologies not excluded. For patients at low risk (minimal or absent history of smoking and of other known risk factors), recommend CT Chest at 6-12 months, then consider CT Chest at 18-24 months. For patients at high risk (history of smoking or of other known risk factors), recommend CT Chest at 6-12 months, then CT Chest at 18-24 months. (Reference: Martha) References: Martha Godinez et al. Guidelines for Management of Incidental Pulmonary Nodules Detected on CT Images: From the Fleischner Society 2017. Radiology. 2017;284(1):228-243. 2. Small patchy foci of peripheral semi-solid and solid infiltrates in the lingular lobe, left lower lobe. Clinical correlation to exclude multifocal pneumonitis suggested. 3. There are no pulmonary emboli. 4. There is no aortic dissection or aneurysm. 5. A moderate hiatal hernia is present. 6. Skin thickening overlying the left breast. Clinical correlation to exclude inflammatory breast carcinoma suggested. Electronically signed by: Matt Medrano On 07/11/2020 20:38:42 PM
[2020-07-11] MEDS ORDERED: AZIT-12 PO (20:59)
[2020-07-11] MEDS ORDERED: AZITHROMYCIN 250MG TABLET PO ONE (21:00)
[2020-07-11 21:15] VITALS: BP 169/90
[2020-07-12] MEDS ORDERED: MEDR4PAK PO (11:57)
--- NOTE | 2020-07-12 14:11 | ED PDOC ---
Post-Departure Follow-Up radiology report faxed to Yessy Miller MD Jul 12, 2020 14:11
--- NOTE | 2020-07-13 08:10 | ECGEPIP ---
[facility] - ED Test Date: 2020-07-11 Pat Name: MAME COMBS Department: Room: - Gender: Female Intake Nurse: : 1960 Requested By: KONG Nj Order Number: [id number] Reading MD: Yessy Nunez Measurements Intervals [place] Rate: 82 P: 32 AL: 146 QRS: 24 QRSD: 74 T: 42 QT: 360 QTc: 420 Interpretive Statements Normal sinus rhythm decreased rate 11/19/19 Electronically Signed on 07-13-2020 8:10:34 EST by Yessy Nunez
== END 2020-07-11 21:22 | disposition home or self-care (01) ==
LOC: M ED 16:57
DX: R06.09 Other forms of dyspnea (principal); R91.8 Other nonspecific abnormal finding of lung field; K44.9 Diaphragmatic hernia without obstruction or gangrene; D05.12 Intraductal carcinoma in situ of left breast; I10 Essential (primary) hypertension; G43.909 Migraine, unspecified, not intractable, without status migrainosus; K21.9 Gastro-esophageal reflux disease without esophagitis; M41.9 Scoliosis, unspecified; Z79.899 Other long term (current) drug therapy
CPT/HCPCS: 36415; 71275; 80048; 80076; 82550; 82553; 83880; 84443; 84484; 85025; 85610; 85730; 87804; 93005; 93041; 94760; 99285; Q9967; U0003

== ENCOUNTER → 2020-07-18 | Outpatient (CLI) | payer BC ==
[~2020-07-18] MED LIST changes: +AZIT-12 PO; +BLAC40CA PO; +MEDR4PAK PO; +PRED20TA PO
--- NOTE | 2020-07-23 11:26 | ECHO ---
DATE OF PROCEDURE: 07/18/2020 Age: 60 Gender: Female REFERRING PHYSICIAN: MARELY SERVIN PATIENT LOCATION: Outpatient. REASON FOR STUDY: Chemotherapy monitoring for breast cancer. 2D MEASUREMENTS: IVS 1.1 cm LV 3.0 cm LVPW 0.8 cm LA 2.7 cm Aorta 3.3 cm IVC 1.7 cm DOPPLER MEASUREMENT Peak velocity across the aortic valve 1.1 m/s Peak velocity across the LVOT 1.0 m/s Mitral E 0.8 Mitral A 0.9 with a ratio of 0.8 Maximum tricuspid valve velocity 2.2 m/s 2D COMMENTS: 1. Normal left ventricular size, wall thickness, and normal global left ventricular systolic function with an estimated LVEF of 60% to 65%. 2. Normal left atrium. Normal right atrium and right ventricle. 3. The atrial septum appeared to be normal without evidence of defect or shunt. 4. Normal aortic root. 5. Trace pericardial effusion noted. No evidence of cardiac tamponade. 6. Minimally calcified aortic valve with normal leaflet excursion. Normal mitral valve, tricuspid valve, and pulmonic valve. The proximal pulmonary artery branches were not well visualized. 7. The inferior vena cava was normal in size, central venous pressure is most likely normal. Doppler detects mild aortic regurgitation, trace tricuspid regurgitation, and trace pulmonic regurgitation. The calculated pulmonary artery systolic pressure was normal. Abnormal relaxation pattern was noted across the mitral valve leaflets, as well as the mitral valve annulus consistent with features of grade 1 left ventricular diastolic dysfunction. IMPRESSION: 1. Normal global left ventricular systolic function. There are some features of grade 1 left ventricular diastolic dysfunction manifested by abnormal relaxation. 2. Aortic valve sclerosis with mild aortic regurgitation, but no aortic stenosis. 3. Trace tricuspid regurgitation with a normal calculated pulmonary artery systolic pressure. 4. Trace pericardial effusion, no evidence of cardiac tamponade. MTDD
== END ==
LOC: M CARPUL 11:26
PROVIDERS: ATTEND Internal Medicine Hematology & Oncology
DX: I08.2 Rheumatic disorders of both aortic and tricuspid valves (principal); C50.919 Malignant neoplasm of unspecified site of unspecified female breast

== ENCOUNTER → 2020-07-24 | Outpatient (CLI) | payer BC ==
--- NOTE | 2020-07-24 12:15 | DEXAMM ---
INDICATION: BREAST CA/ON AROMATASE INHIBIT. COMPARISON: None. TECHNIQUE: Bone density was measured using dual-energy x-ray absorptiometry (DEXA). FINDINGS: AP SPINE L1-L4 BMD 0.885 g/cm2 Young Adult T-Score -2.5 Age Matched Z-Score -1.4. LT FEMUR, TOTAL BMD 0.838 g/cm2 Young Adult T-Score -1.3 Age Matched Z-Score -0.5. LT NECK BMD 0.882 g/cm2 Young Adult T-Score -1.1 Age Matched Z-Score 0.1. RT FEMUR, TOTAL BMD 0.815 g/cm2 Young Adult T-Score -1.5 Age Matched Z-Score 0.7. RT NECK BMD 0.768 g/cm2 Young Adult T-Score -1.9 Age Matched Z-Score -0.7. IMPRESSION: There is low bone density of the spine. There is low bone density of the left hip. There is low bone density of the right hip. FOLLOW-UP: Recommendation for the next bone density exam: 2 years. <Electronically signed by Spencer Easley > 07/24/20 [id number]
== END ==
LOC: M WHC 11:24
PROVIDERS: ATTEND Internal Medicine Hematology & Oncology
DX: C50.919 Malignant neoplasm of unspecified site of unspecified female breast (principal)

== ENCOUNTER → 2020-11-05 | Outpatient (CLI) | payer BC ==
[~2020-11-05] MED LIST changes: +ECOT81TA5 PO
[2020-11-05 11:17] LABS: CHOLESTEROL RISK RATIO 3.111 (<5)
== END ==
LOC: M WUC 08:18
PROVIDERS: ATTEND Internal Medicine
DX: E78.00 Pure hypercholesterolemia, unspecified (principal)

== ENCOUNTER → 2020-11-05 | Outpatient (CLI) | payer BC ==
[2020-11-05 10:55] LABS: BASO % 0.8 % (0.0-1.0); EOS # 0.1 10^3/uL (0.0-0.5); EOS % 2.8 % (0.0-3.0); HEMATOCRIT 41.6 % (36.0-47.0); LYMPH # 1.5 10^3/uL (1.5-5.0); LYMPH % 37.7 % (24.0-44.0); MEAN CORPUSCULAR HGB CONC 33.7 g/dl (32.0-36.5); MEAN CORPUSCULAR VOLUME 92.2 fl (80.0-96.0); MONO # 0.2 10^3/uL (0.0-0.8); MONO % 5.8 % (2.0-8.0); NEUTROPHILS # 2.1 10^3/uL (1.5-8.5); NEUTROPHILS % 52.4 % (36.0-66.0); PLATELET COUNT, AUTOMATED 270 10^3/uL (150-450); RED BLOOD COUNT 4.51 10^6/uL (4.00-5.40)
[2020-11-05 11:21] LABS: ALBUMIN 3.6 GM/DL (3.2-5.2); ALT/SGPT 25 U/L (12-78); BILIRUBIN,TOTAL 0.5 MG/DL (0.2-1.0); BLOOD UREA NITROGEN 21 MG/DL (7-18); CALCIUM LEVEL 8.7 MG/DL (8.5-10.1); CARBON DIOXIDE LEVEL 33 MEQ/L (21-32); CHLORIDE LEVEL 106 MEQ/L (98-107); CREATININE FOR GFR 0.57 MG/DL (0.55-1.30); GLOMERULAR FILTRATION RATE > 60.0 (>51); GLUCOSE, FASTING 84 MG/DL (70-100); POTASSIUM SERUM 4.2 MEQ/L (3.5-5.1); SODIUM LEVEL 141 MEQ/L (136-145); TOTAL PROTEIN 6.4 GM/DL (6.4-8.2)
== END ==
LOC: M WUC 08:15
PROVIDERS: ATTEND Internal Medicine Hematology & Oncology
DX: C50.919 Malignant neoplasm of unspecified site of unspecified female breast (principal)

== ENCOUNTER → 2021-03-11 | Outpatient (CLI) | payer BC ==
--- NOTE | 2021-03-13 06:05 | REP ---
INDICATION: LUNG NODULE COMPARISON: 07/11/2020, 01/20/2020 TECHNIQUE: Axial noncontrast images from the thoracic inlet to the upper abdomen with coronal and sagittal reformations. This CT examination was performed using the following dose reduction techniques: Automated exposure control, adjustment of mA and/or kv according to the patient's size, and use of iterative reconstruction technique. FINDINGS: The left upper lobe opacities on most recent prior examination have essentially resolved with only small amounts of subpleural fibrosis now noted. The small non solid nodule in the periphery of the left upper lobe measuring approximately 6 mm (image 33) and the subpleural 7 mm nodule in the right middle lobe (image 45) both remain stable through 2020. no acute consolidation, suspicious nodule or mass. No effusion. No pneumothorax. Tracheobronchial tree is patent. Mediastinum is relatively normal/stable. Advanced scoliosis somewhat distorts normal anatomical relationships. Stable moderate hiatal hernia again noted. Limited upper abdomen demonstrates normal bilateral adrenal glands and cholelithiasis. IMPRESSION: 1. Previously identified "stellate opacity" in the left upper lobe has resolved and likely represented transient atelectasis. 2. Small stable noncalcified nodules in the left upper lobe and right middle lobe remain unchanged through 2020. Consider 12 month follow-up to confirm stability/chronicity over 2 year period. 3. No acute mediastinal or pleuroparenchymal process otherwise appreciated. <Electronically signed by Clayton Juarez > 03/13/21 [id number]
== END ==
LOC: M RAD 13:11
PROVIDERS: ATTEND General Practice
DX: R91.8 Other nonspecific abnormal finding of lung field (principal)

== ENCOUNTER → 2021-03-22 | Outpatient (CLI) | payer BC ==
[~2021-03-22] MED LIST changes: +CLOT1CRE56 TOP; +NITR100C2 PO; +NYSTOI TOP; +VITA400C83 PO
--- NOTE | 2021-03-22 16:48 | RADONC ---
Radiation Oncology Hx/FUP Radiation Oncology Hx/FUP Date of Service: Mar 22, [address] Ibrahim is a 60 year old female seen for a followup visit today at the department of radiation oncology for a history of left breast cancer pT2N0(sn)M0 ER/CA+ Her2- Grade 2 of the upper inner quadrant. She is s/p Lumpectomy on 11/17/19 followed by margin directed re-excision and SLNB on 12/02/[address] Parrish. She received adjuvant whole breast RT 40 Gy in 15 fractions followed by 10 Gy in 5 fractions to the tumor bed completed 03/12/20. She continues on anastrozole. Her post-RT course was complicated by likely RT pneumonitis in July 2020 which resolved with a steroid pulse. Diagnosis/Treatment History Oncologic History Presented in 2016 with a cystic mass in the left breast, this was followed and biopsied in April 2019 c/b hematoma. She was noted to have a persistent lesion in follow up in September 2018 and subsequent mammogram and US demonstrated a 4 cm spiculated lesion. EOD MRI was performed which revealed no overt regional disease. She had a lumpectomy on 11/17/19 which showed IDC, HR+ Her2- Grade 2. She underwent margin-directed re-excision and SLNB on 12/02/[address] Parrish, final pathology revealed pT2N0(sn)M0. An oncotype has been ordered and is pending. She had a bone scan and CT chest abdomen and pelvis on 01/20/20 without evidence of metastases. 02/14/20-03/12/20 Adjuvant RT 40 Gy in 15 fractions to the left breast + 10 Gy 5 fraction tumor bed boost. She visited the ED on 07/11/20 out of concern for possible PE. CT angio was negative but showed a right lung peripheral sub-centimeter nodule, and there was some subpleural scarring/fibrosis in the left lingular region on the CT, which could fit with mild radiation pneumonitis. COVID test was negative. She was treated with a pulse of prednisone which resolved her symptoms completely. Survivorship: Test Due Next Last result Notes TSH, T4* 6m post-tx, then q1y N/A Carotid US* q10 y post-tx N/A Smoking cessation Assess annually if applicable N/A Screening CT chest q1y if eligible per USPSTF N/A February 2021 negative Radiology recommended an addition scan in Fall 2021 then stop. Several sub-cm nodules Mammograms Min q1y, if breast conservation April negative CBC,CMP, Lipids q1y 2021 DEXA q2y if on AI Per medical oncology On Prolia/AI Recent data: 03/13/21 IMPRESSION: 1. Previously identified "stellate opacity" in the left upper lobe has resolved and likely represented transient atelectasis. 2. Small stable noncalcified nodules in the left upper lobe and right middle lobe remain unchanged through 2020. Consider 12 month follow-up to confirm stability/chronicity over 2 year period. 3. No acute mediastinal or pleuroparenchymal process otherwise appreciated. Interval History Ave reports she has occasional 'zaps' in the left breast but overall these are not bothersome. She has some muscle aches from the anastrozole. She also notes BL forearm and hand numbness intermittent, unpredictable, short lasting, no color changes in skin associated with, not associated with posture or pressure on elbows. She has some occasional rash under the left arm. Appetite is good and weight is stable. No pulmonary symptoms. Has ongoing minor fatigue. 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 Social History: Never-smoker 3-5 Drinke per week Allergies / Meds Allergies: Coded Allergies: No Known Allergies (Unverified , 11/10/19) Home Meds Active Scripts Nystatin (Nystatin Oint) 30 Gm Oint...g., 1 APLCT TOP QID for 10 Days, #30 GRAM apply to affected area(s) Prov:HANG SAMPSON MD FACP 03/21/21 Anastrozole (Anastrozole) 1 Mg Tablet, 1 TAB PO DAILY for 90 Days, #90 TAB 3 Refills Prov:HANG SAMPSON MD FACP 03/19/21 Reported Medications Nitrofurantoin Monohyd/M-Cryst (Nitrofurantoin Hudspeth-Mcr 100 mg) 100 Mg Capsule, 1 CAP PO BID last dose scheduled 03/21/21 AM 03/19/21 Vitamin E (Dl,Tocopheryl Acet) (Vitamin E) 180 Mg (400 Unit) Capsule, 180 MG PO DAILY, CAP 03/19/21 Aspirin (Ecotrin) 81 Mg Tablet.dr, 1 TAB PO DAILY for pain for 30 Days, #30 TAB 08/17/20 Black Cohosh Root Extract (Black Cohosh) 40 Mg Capsule, 40 MG PO DAILY, CAP 07/11/20 Glucosam/Chondroit/C/Manganese (Cosamin Ds Capsule) 1 Each Capsule, 1 CAP PO DAILY, CAP 01/26/20 Lutein (Lutein) 20 Mg Capsule, 20 MG PO DAILY, CAP 11/10/19 Multivitamin (Multiple Vitamins) 1 Each Tablet, 1 TAB PO DAILY, TAB 05/11/19 Lisinopril (Lisinopril) 5 Mg Tablet, 5 MG PO DAILY, TAB 05/11/19 Discontinued Reported Medications Vitamin E (Dl,Tocopheryl Acet) (Vitamin E) 400 Unit Capsule, 400 UNIT PO DAILY for 30 Days, #30 CAP 01/26/20 Discontinued Scripts Clotrimazole (Clotrimazole) 1% 30GM Cream..g., 1 APLCT TOP QAM-PM for 7 Days, #15 GRAM apply to affected area(s) Prov:HANG SAMPSON MD FACP 03/19/21 Review of Systems Review of Systems Constitutional: Reports: Fatigue; Denies: Weight Loss Eyes: Denies: Pain HEENT: Denies: Head Aches Skin: Reports: Rash Breast: Denies: New Breast Lumps / Masses, Nipple Retraction, Breast Pain or Tenderness Pulmonary: Denies: Dyspnea, Cough Cardiovascular: Denies: Chest Pain Gastrointestinal: Denies: Abdominal Pain Neurological: Reports: Numbness; Denies: Weakness Psych: Reports: Mood Normal Physical Examination Vital Signs Wt 188 lbs T 96.2 P 89 RR 18 BP 149/85 O2 94% Pain 0 Fatigue 1 General Exam: Alert, Cooperative, No Acute Distress Eye Exam: PERRLA, EOMI ENT EXAM: Atraumatic Neck Exam: Supple Breast Exam: Symmetric Bilaterally (Palpable fibrosis in the surgical site central left breast. No nodules in the brests BL, no axillary lesions. ), Skin Changes (There is a patch of atopic appearing red rash in the anterior left axilla. ); Negative: Lumps or Masses, Nipple Retraction, Nipple Discharge Abdomen Exam: Soft Extremity Exam: Edema (There is trace edema in the hands BL, no arm edema) Skin Exam: Nl turgor and temperature Neuro Exam: Normal Gait, Normal Speech, Cranial Nerves 3-12 NL Psych Exam: Mental status NL Diagnostic and Laboratory Diagnostic Review Radiologic images, relevant labs and pathology reports were personally reviewed and discussed with Ms. Ibrahim. Assessment and Plan Impression Assessment Ms. Ibrahim is a 60 year old female with a history of left breast cancer pT2N0(sn)M0 ER/CA+ Her2- Grade 2 of the upper inner quadrant. She is s/p Lumpectomy on 11/17/19 followed by margin directed re-excision and SLNB on 12/02/[address] Parrish. She received adjuvant whole breast RT 40 Gy in 15 frac tions followed by 10 Gy in 5 fractions to the tumor bed completed 03/12/20. She continues on anastrozole. Her post-RT course was complicated by likely RT pneumonitis in July 2020 which resolved with a steroid pulse. She has no evidence of recurrent or de deepti breast lesions on exam today. She has appropriate mammographic follow up. She does have some atopic rash within t he treatment field of the left lateral breast/axilla. I explained that this is likely due to impaired eccrine gland function in the treated skin, which could be remedied by regular moisturization and use of hydrocortisone 1% cream as needed. She is not due for any survivorship items today. For the follow up of the pulmonary nodules she should have another CT chest in 12 months, at which point if the nodules are stable, then we can discontinue follow up imaging. We agreed to clinical follow up in 6 months. Performance Status ECOG 0 Plan Follow up in [address] chest in 12 months Ms. Ibrahim was encouraged to call with questions or concerns in the interim period. Billing Statement Total time of [27] minutes was spent preparing for the visit [2], obtaining HPI [4], examining the patient [4], reviewing diagnostic tests [3], discussing management options [6], coordinating care [2], and writing this note [6]. JAY MARTINES MD Mar 22, 2021 16:48
== END ==
LOC: M ONCR 15:32
PROVIDERS: ATTEND General Practice
DX: C50.212 Malignant neoplasm of upper-inner quadrant of left female breast (principal); M79.10 Myalgia, unspecified site; R21 Rash and other nonspecific skin eruption; R91.8 Other nonspecific abnormal finding of lung field; Z79.82 Long term (current) use of aspirin; Z79.899 Other long term (current) drug therapy; Z92.3 Personal history of irradiation

== ENCOUNTER → 2021-06-03 | Outpatient (REF) | payer OTHER, BC ==
[~2021-06-03] MED LIST changes: -LISI-898 PO; +LISI5TAB11 PO
== END ==
LOC: M LAB REF 12:08
PROVIDERS: ATTEND Internal Medicine
DX: D51.9 Vitamin B12 deficiency anemia, unspecified (principal)

== ENCOUNTER → 2021-09-17 | Outpatient (CLI) | payer OTHER ==
[~2021-09-17] MED LIST changes: +METH-1165 PO
== END ==
LOC: M ONCR 13:29
PROVIDERS: ATTEND General Practice
DX: C50.212 Malignant neoplasm of upper-inner quadrant of left female breast (principal); Z92.3 Personal history of irradiation

== ENCOUNTER → 2022-03-19 | Outpatient (CLI) | payer BC, OTHER ==
[~2022-03-19] MED LIST changes: +CALC1TAB42 PO
== END ==
LOC: M ONCR 13:20
PROVIDERS: ATTEND General Practice
DX: C50.212 Malignant neoplasm of upper-inner quadrant of left female breast (principal); R11.0 Nausea; N63.10 Unspecified lump in the right breast, unspecified quadrant; Z92.3 Personal history of irradiation; Z92.21 Personal history of antineoplastic chemotherapy; Z79.811 Long term (current) use of aromatase inhibitors; Z79.899 Other long term (current) drug therapy; Z79.82 Long term (current) use of aspirin

== ENCOUNTER → 2022-06-11 | Outpatient (REF) | payer OTHER, BC | LOC: M SFHCWAGY 12:52 | PROVIDERS: ATTEND Surgery | DX: N60.81 Other benign mammary dysplasias of right breast (principal) ==

== ENCOUNTER → 2022-07-17 | Outpatient (CLI) | payer BC, OTHER ==
[~2022-07-17] MED LIST changes: +L-LY500T15 PO; +MELA10CA6 PO; +PROL60SO SC
== END ==
LOC: M LABSMTC 09:17
PROVIDERS: ATTEND Anesthesiology
DX: Z01.812 Encounter for preprocedural laboratory examination (principal); Z11.52 Encounter for screening for COVID-19

== ENCOUNTER 2022-07-22 13:06 | Day surgery (SDC) | payer OTHER ==
[~2022-07-22] VITALS: Ht 149.9 cm; Wt 84.8 kg
[~2022-07-22 13:06] MED LIST changes: +NS 1,000 ML IV ONE
[2022-07-22] MEDS ORDERED: LIDOCAINE 2% 100MG/5ML SDV (FOR ANES.) As Ordered ONE (14:25)
[2022-07-22] MEDS ORDERED: propofoL 200 MG/20 ML VIAL As Ordered ONE ×2 (14:25→15:22)
[2022-07-22] MEDS ORDERED: fentaNYL 100 MCG/2 ML INJECTION As Ordered ONE (14:44)
[2022-07-22] MEDS ORDERED: GLYCOPYRROLATE INJ 0.2 MG/ML 2 ML VIAL As Ordered ONE (14:45)
[2022-07-22 16:15] VITALS: BP 117/68
== END 2022-07-22 16:17 | disposition home or self-care (01) ==
LOC: M OPP 13:06
PROVIDERS: ATTEND Internal Medicine Gastroenterology
DX: Z12.11 Encounter for screening for malignant neoplasm of colon (principal); Z80.0 Family history of malignant neoplasm of digestive organs; K63.5 Polyp of colon; K57.30 Diverticulosis of large intestine without perforation or abscess without bleeding; K64.8 Other hemorrhoids; K44.9 Diaphragmatic hernia without obstruction or gangrene; K29.70 Gastritis, unspecified, without bleeding; K20.90 Esophagitis, unspecified without bleeding; I10 Essential (primary) hypertension; Z79.1 Long term (current) use of non-steroidal anti-inflammatories (NSAID); Z79.52 Long term (current) use of systemic steroids; Z79.811 Long term (current) use of aromatase inhibitors; Z79.82 Long term (current) use of aspirin; Z79.899 Other long term (current) drug therapy; Z87.19 Personal history of other diseases of the digestive system; Z85.3 Personal history of malignant neoplasm of breast; Z92.21 Personal history of antineoplastic chemotherapy; Z92.3 Personal history of irradiation; Z80.3 Family history of malignant neoplasm of breast; Z80.49 Family history of malignant neoplasm of other genital organs; Z80.1 Family history of malignant neoplasm of trachea, bronchus and lung
CPT/HCPCS: 43239; 45385; 88305; J3010

== ENCOUNTER → 2022-07-29 | Outpatient (CLI) | payer OTHER ==
[~2022-07-29] MED LIST changes: -NS 1,000 ML IV ONE
== END ==
LOC: M WHC 10:50
PROVIDERS: ATTEND Internal Medicine Medical Oncology
DX: C50.919 Malignant neoplasm of unspecified site of unspecified female breast (principal); M81.0 Age-related osteoporosis without current pathological fracture

== ENCOUNTER → 2022-08-01 | Outpatient (CLI) | payer OTHER ==
[~2022-08-01] MED LIST changes: +E-Z-GAS II EFFERVESCENT PACKET (SODIUM BICARB./CITRIC ACID/SIMETHICONE) As Ordered ONE; +E-Z-HD 98% w/w 340GM SUSP BTL As Ordered ONE; +E-Z-PAQUE 96% w/w SUSP 176GM BTL As Ordered ONE
== END ==
LOC: M RAD 10:10
PROVIDERS: ATTEND Physician Assistant Medical
DX: R13.10 Dysphagia, unspecified (principal)

== ENCOUNTER → 2022-10-21 | Outpatient (CLI) | payer BC, OTHER ==
[~2022-10-21] MED LIST changes: -E-Z-GAS II EFFERVESCENT PACKET (SODIUM BICARB./CITRIC ACID/SIMETHICONE) As Ordered ONE; -E-Z-HD 98% w/w 340GM SUSP BTL As Ordered ONE; -E-Z-PAQUE 96% w/w SUSP 176GM BTL As Ordered ONE; +NYST100085 TOP; -NYSTOI TOP; +OMEP40CA5
== END ==
LOC: M RAD 07:33
PROVIDERS: ATTEND Internal Medicine Medical Oncology
DX: D05.12 Intraductal carcinoma in situ of left breast (principal); M54.50 Low back pain, unspecified
CPT/HCPCS: 78306; A9503

== ENCOUNTER → 2023-06-24 | Outpatient (REF) | payer OTHER, BC | LOC: M SFHCWAGY 09:59 | PROVIDERS: ATTEND Nurse Practitioner Family | DX: Z12.4 Encounter for screening for malignant neoplasm of cervix (principal) ==

== ENCOUNTER → 2023-09-22 | Outpatient (REF) | payer OTHER | LOC: M LAB REF 16:22 | PROVIDERS: ATTEND Internal Medicine | DX: R31.9 Hematuria, unspecified (principal) ==

== ENCOUNTER → 2023-09-29 | Outpatient (REF) | payer OTHER | LOC: M LAB REF 16:16 | PROVIDERS: ATTEND Internal Medicine | DX: R31.9 Hematuria, unspecified (principal) ==

== ENCOUNTER → 2023-10-06 | Outpatient (REF) | payer OTHER | LOC: M LAB REF 16:25 | PROVIDERS: ATTEND Internal Medicine | DX: R31.9 Hematuria, unspecified (principal) ==

== ENCOUNTER → 2023-11-06 | Outpatient (REF) | payer OTHER ==
[~2023-11-06] MED LIST changes: +FERR325T3 PO
== END ==
LOC: M LABWUC 16:33
PROVIDERS: ATTEND Internal Medicine Medical Oncology
DX: E55.9 Vitamin D deficiency, unspecified (principal)

== ENCOUNTER → 2024-03-21 | Outpatient (REF) | payer OTHER ==
[~2024-03-21] MED LIST changes: +E-401CAP2 PO; -VITA400C83 PO
[2024-03-21 14:43] LABS: PERCENT SATURATION 56.7 % (13.2-45.0)
[2024-03-21 14:44] LABS: FERRITIN 38.4 NG/ML (7.3-270.7)
== END ==
LOC: M LAB REF 13:07
PROVIDERS: ATTEND Internal Medicine
DX: D51.9 Vitamin B12 deficiency anemia, unspecified (principal)

== ENCOUNTER → 2024-04-20 | Outpatient (CLI) | payer OTHER ==
[~2024-04-20] MED LIST changes: +E-Z-GAS II EFFERVESCENT PACKET (SODIUM BICARB./CITRIC ACID/SIMETHICONE) As Ordered ONE; +E-Z-HD 98% w/w 340GM SUSP BTL As Ordered ONE; +E-Z-PAQUE 96% w/w SUSP 176GM BTL As Ordered ONE
== END ==
LOC: M RAD 08:29
PROVIDERS: ATTEND Physician Assistant Medical
DX: K21.9 Gastro-esophageal reflux disease without esophagitis (principal)

== ENCOUNTER 2024-04-28 11:10 | Day surgery (SDC) | payer OTHER ==
[~2024-04-28] VITALS: Ht 149.9 cm; Wt 72.1 kg
[~2024-04-28 11:10] MED LIST changes: -E-Z-GAS II EFFERVESCENT PACKET (SODIUM BICARB./CITRIC ACID/SIMETHICONE) As Ordered ONE; -E-Z-HD 98% w/w 340GM SUSP BTL As Ordered ONE; -E-Z-PAQUE 96% w/w SUSP 176GM BTL As Ordered ONE; +PROBCAP14 PO
[2024-04-28] MEDS ORDERED: propofoL 200 MG/20 ML VIAL As Ordered ONE (13:22)
[2024-04-28] MEDS ORDERED: LIDOCAINE 2% 100MG/5ML SDV (FOR ANES.) As Ordered ONE (13:22)
[2024-04-28] MEDS ORDERED: fentaNYL 100 MCG/2 ML INJECTION As Ordered ONE (13:31)
[2024-04-28 13:46] VITALS: TEMP 97.6
[2024-04-28 14:01] VITALS: BP 114/57; O2SAT 95
== END 2024-04-28 14:06 | disposition home or self-care (01) ==
LOC: M OPP 11:10
PROVIDERS: ATTEND Internal Medicine Gastroenterology
DX: R93.3 Abnormal findings on diagnostic imaging of other parts of digestive tract (principal); Z98.890 Other specified postprocedural states; K21.9 Gastro-esophageal reflux disease without esophagitis; I10 Essential (primary) hypertension; Z85.3 Personal history of malignant neoplasm of breast; Z92.21 Personal history of antineoplastic chemotherapy; Z92.3 Personal history of irradiation; Z79.899 Other long term (current) drug therapy; Z90.89 Acquired absence of other organs; Z90.12 Acquired absence of left breast and nipple; Z87.19 Personal history of other diseases of the digestive system
CPT/HCPCS: 43239; 88305; J3010

== ENCOUNTER → 2024-05-05 | Outpatient (CLI) | payer OTHER ==
[~2024-05-05] MED LIST changes: +NOXI1TAB PO
== END ==
LOC: M ONCR 09:54
PROVIDERS: ATTEND General Practice
DX: Z08 Encounter for follow-up examination after completed treatment for malignant neoplasm (principal); Z85.3 Personal history of malignant neoplasm of breast; Z79.811 Long term (current) use of aromatase inhibitors; Z79.82 Long term (current) use of aspirin; Z79.899 Other long term (current) drug therapy; Z92.3 Personal history of irradiation

== ENCOUNTER → 2024-09-22 | Outpatient (REF) | payer BC ==
[~2024-09-22] MED LIST changes: +DENO60SY2 SC; -PROL60SO SC
[2024-09-22 19:19] LABS: PERCENT SATURATION 36.5 % (13.2-45.0)
[2024-09-22 19:22] LABS: FERRITIN 29.7 NG/ML (7.3-270.7)
== END ==
LOC: M LAB REF 17:38
PROVIDERS: ATTEND Internal Medicine
DX: D50.9 Iron deficiency anemia, unspecified (principal)

== ENCOUNTER → 2024-10-10 | Outpatient (CLI) | payer BC | LOC: M RAD 10:36 | PROVIDERS: ATTEND Internal Medicine | DX: R35.0 Frequency of micturition (principal); M54.9 Dorsalgia, unspecified ==

== ENCOUNTER → 2024-12-22 | Outpatient (REF) | payer BC ==
[~2024-12-22] MED LIST changes: +OXYB-54
[2024-12-24 15:20] LABS: HPV APTIMA Not Detected (Not Detected)
== END ==
LOC: M PLALAB 10:37
PROVIDERS: ATTEND Advanced Practice Midwife
DX: Z12.4 Encounter for screening for malignant neoplasm of cervix (principal); N95.2 Postmenopausal atrophic vaginitis
CPT/HCPCS: 87624; G0123

== ENCOUNTER → 2025-03-30 | Outpatient (REF) | payer BC ==
[2025-03-30 13:15] LABS: IRON (FE) 121.0 UG/DL (50-170); PERCENT SATURATION 36.0 % (13.2-45.0)
[2025-03-30 13:17] LABS: VITAMIN B12 LEVEL 359.0 PG/ML (211-911)
== END ==
LOC: M LAB REF 11:54
PROVIDERS: ATTEND Internal Medicine
DX: D50.9 Iron deficiency anemia, unspecified (principal)

== ENCOUNTER → 2025-05-03 | Outpatient (CLI) | payer BC | LOC: M ONCR 13:52 | PROVIDERS: ATTEND General Practice | DX: C50.212 Malignant neoplasm of upper-inner quadrant of left female breast (principal); Z92.3 Personal history of irradiation; Z79.811 Long term (current) use of aromatase inhibitors; Z79.620 Long term (current) use of immunosuppressive biologic; Z79.82 Long term (current) use of aspirin; Z79.899 Other long term (current) drug therapy; Z17.0 Estrogen receptor positive status [ER+]; Z17.21 Progesterone receptor positive status; Z17.32 Human epidermal growth factor receptor 2 negative status ==

== ENCOUNTER → 2025-05-10 | Outpatient (CLI) | payer BC | LOC: M WHC 13:37 | DX: C50.919 Malignant neoplasm of unspecified site of unspecified female breast (principal); M85.88 Other specified disorders of bone density and structure, other site ==